=== PATIENT | male | born 1950 | race Caucasian/White ===

== ENCOUNTER 2017-12-08 15:12 | Emergency (ER) | payer MEDICARE, OTHER ==
[~2017-12-08] VITALS: Ht 175.3 cm; Wt 81.8 kg
[~2017-12-08 15:12] MED LIST: thiamine inj. 100 MG, MVI, adult No.4 with vit. K 10 ML in dextrose 5% water 500ml 489 ML IV SCH
[2017-12-08] MEDS ORDERED: normal saline 1000ML IV soln IVB ONE (16:30)
[2017-12-08 16:41] LABS: BASOPHILS % (AUTO) 0.4 % (0-1); EOSINOPHILS # (AUTO) 0.2 X10'3 (0-0.9); EOSINOPHILS % (AUTO) 2.8 % (0-6); HEMOGLOBIN 14.6 g/dl (14.0-17.9); LYMPHOCYTES % (AUTO) 25.6 % (21-51); MEAN CORPUSCULAR HEMOGLOBIN 30.1 PG (27.0-31.0); MEAN CORPUSCULAR HGB CONC 33.9 % (33.0-36.5); MEAN CORPUSCULAR VOLUME 88.9 FL (78-98); MEAN PLATELET VOLUME 10.5 FL (7.4-10.4); MONOCYTES # (AUTO) 0.6 X10'3 (0-0.9); MONOCYTES % (AUTO) 7.9 % (2-12); NEUTROPHILS # (AUTO) 4.9 X10'3 (1.8-7.7); NEUTROPHILS % (AUTO) 63.3 % (42-75); PLATELET COUNT 118 X10'3 (140-440); RED BLOOD COUNT 4.84 X10'6 (4.70-6.10); RED CELL DISTRIBUTION WIDTH 14.9 % (11.5-14.5); WHITE BLOOD COUNT 7.8 X10'3 (4.5-11.0)
[2017-12-08 16:56] LABS: ALANINE AMINOTRANSFERASE 92 U/L (12-78); ALBUMIN 4.1 G/DL (3.4-5.0); ALKALINE PHOSPHATASE 76 IU/L (46-116); ANION GAP 5 (8-16); ASPARTATE AMINO TRANSFERASE 53 U/L (10-37); BILIRUBIN,TOTAL 0.4 MG/DL (0.1-1.0); BLOOD UREA NITROGEN 22 MG/DL (7-18); BUN/CREATININE RATIO 19.8 (5.4-32.0); CALCIUM 9.1 MG/DL (8.5-10.1); CHLORIDE 106 MMOL/L (99-107); CREATININE 1.11 MG/DL (0.60-1.10); GLUCOSE 115 MG/DL (70-104); POTASSIUM 4.2 MMOL/L (3.5-5.1); SODIUM 140 MMOL/L (135-145); TOTAL CARBON DIOXIDE 29.1 MMOL/L (24-32); TOTAL PROTEIN 8.2 G/DL (6.4-8.2); eGFR 66 ML/MIN
[2017-12-08 17:05] LABS: ETHANOL < 0.010 GM/DL (0.0-0.010)
[2017-12-08] MEDS ORDERED: LORazepam 2 mg/ml vial IV ONE (17:05)
[2017-12-08 18:44] LABS: CLARITY,URINE SLIGHTLY CLOUDY (Clear); COLOR,URINE YELLOW (Yellow); GLUCOSE, URINE NEGATIVE (Neg); KETONES,URINE NEGATIVE (Neg); LEUKOCYTE ESTERASE ,URINE NEGATIVE (Neg); NITRITES, URINE NEGATIVE (Neg); OCCULT BLOOD,URINE SMALL (Neg); PH,URINE 7.5 (4.8-8.0); PROTEIN,URINE TRACE mg/dl (Neg); UROBILINOGEN,URINE 0.2 E.U/dL (0.2-1.0)
[2017-12-08 18:45] LABS: UA COLLECTION TYPE VOIDED
[2017-12-08 18:48] LABS: URINE AMPHETAMINE SCREEN NEGATIVE (Neg); URINE BARBITUATE SCREEN NEGATIVE (Neg); URINE BENZODIAZEPINES SCREEN NEGATIVE (Neg); URINE CANNABINOID SCREEN NEGATIVE (Neg); URINE COCAINE SCREEN NEGATIVE (Neg); URINE METHADONE SCREEN NEGATIVE (Neg); URINE OPIATE SCREEN NEGATIVE (Neg); URINE PHENCYCLIDINE SCREEN NEGATIVE (Neg)
[2017-12-08 18:58] LABS: BACTERIA,URINE NONE SEEN /HPF (Neg); MUCUS STRANDS NONE SEEN /LPF (Neg); SQUAMOUS EPITHELIAL CELL,UR NONE SEEN /LPF (FEW); WBC,URINE NONE SEEN /HPF (0-4)
[2017-12-08] MEDS ORDERED: thiamine inj. 100 MG, MVI, adult No.4 with vit. K 10 ML in dextrose 5% water 500ml 489 ML IV SCH ×3 (19:00)
[2017-12-08 19:58] VITALS: BP 168/88
[2017-12-09] MEDS ORDERED: multivitamins, therapeutics tablet PO SCH (08:00)
== END 2017-12-08 19:47 ==
LOC: ER 15:12
DX: R41.82 Altered mental status, unspecified (principal); I10 Essential (primary) hypertension; M19.90 Unspecified osteoarthritis, unspecified site; Z98.890 Other specified postprocedural states
CPT/HCPCS: 36415; 70450; 80053; 80305; 80320; 81001; 82140; 83735; 84443; 85025; 96365; 96366; 96375; 99285; J2060; J3411; J7030; J7060

== ENCOUNTER 2018-10-20 15:27 | Emergency (ER) | payer OTHER ==
[~2018-10-20] VITALS: Ht 175.3 cm; Wt 95.0 kg
[2018-10-20] MEDS ORDERED: LORazepam 1 MG tablet PO ONE (16:15)
--- NOTE | 2018-10-20 17:19 | NUR ---
PT WAS BROUGHT IN BY [facility] ON A 5150 WRITTEN BY OSMAR KING, HE WAS CHANGED INTO [facility] AND GAVE US A URINE SAMPLE FOLLOWED BY LABS. VERY PLEASANT.
[2018-10-20 17:21] LABS: BASOPHILS % (AUTO) 0.4 % (0-1); EOSINOPHILS # (AUTO) 0.1 X10'3 (0-0.9); EOSINOPHILS % (AUTO) 1.8 % (0-6); HEMATOCRIT 38.7 % (42.0-52.0); HEMOGLOBIN 13.4 g/dl (14.0-17.9); LYMPHOCYTES # (AUTO) 1.2 X10'3 (1.1-4.8); LYMPHOCYTES % (AUTO) 21.1 % (21-51); MEAN CORPUSCULAR HEMOGLOBIN 31.7 PG (27.0-31.0); MEAN CORPUSCULAR HGB CONC 34.5 g/dL (33.0-36.5); MEAN CORPUSCULAR VOLUME 91.9 FL (78-98); MEAN PLATELET VOLUME 9.5 FL (7.4-10.4); MONOCYTES # (AUTO) 0.5 X10'3 (0-0.9); MONOCYTES % (AUTO) 7.9 % (2-12); NEUTROPHILS % (AUTO) 68.8 % (42-75); PLATELET COUNT 80 X10'3 (140-440); RED BLOOD COUNT 4.21 X10'6 (4.70-6.10); RED CELL DISTRIBUTION WIDTH 13.3 % (11.5-14.5); WHITE BLOOD COUNT 5.8 X10'3 (4.5-11.0)
[2018-10-20 17:34] LABS: ALANINE AMINOTRANSFERASE 61 U/L (12-78); ALBUMIN 3.7 G/DL (3.4-5.0); ALBUMIN/GLOBULIN RATIO 1.1 (1.1-1.5); ALKALINE PHOSPHATASE 57 IU/L (46-116); ANION GAP 6 (8-16); ASPARTATE AMINO TRANSFERASE 31 U/L (10-37); BILIRUBIN,TOTAL 0.3 MG/DL (0.1-1.0); BLOOD UREA NITROGEN 21 MG/DL (7-18); BUN/CREATININE RATIO 22.3 (5.4-32.0); CALCIUM 8.8 MG/DL (8.5-10.1); CHLORIDE 107 MMOL/L (99-107); CREATININE 0.94 MG/DL (0.60-1.10); GLUCOSE 139 MG/DL (70-104); POTASSIUM 3.9 MMOL/L (3.5-5.1); SODIUM 140 MMOL/L (135-145); TOTAL CARBON DIOXIDE 26.6 MMOL/L (24-32); TOTAL PROTEIN 7.2 G/DL (6.4-8.2); eGFR 80 ML/MIN
[2018-10-20 17:35] LABS: URINE AMPHETAMINE SCREEN NEGATIVE (Neg); URINE BARBITUATE SCREEN NEGATIVE (Neg); URINE BENZODIAZEPINES SCREEN NEGATIVE (Neg); URINE CANNABINOID SCREEN NEGATIVE (Neg); URINE COCAINE SCREEN NEGATIVE (Neg); URINE METHADONE SCREEN NEGATIVE (Neg); URINE OPIATE SCREEN NEGATIVE (Neg); URINE PHENCYCLIDINE SCREEN NEGATIVE (Neg)
[2018-10-20 17:39] LABS: ETHANOL < 0.010 GM/DL (0.0-0.010)
[2018-10-20 17:45] LABS: LARGE PLATELETS FEW; PLATELET ESTIMATE DECREASED
--- NOTE | 2018-10-20 19:00 | NUR ---
Pt is awake in bed eating his dinner. Cooperative with admission assesment. His speech is disorganized, and he has grandiose delusions. 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 He states that he doesn't take any medications and [place]
--- NOTE | 2018-10-20 21:00 | NUR ---
Pt is resting quietly in bed. He ate his entire dinner tray and used the bathroom twice.
[2018-10-20] MEDS ORDERED: LACT10SO PO (21:48)
[2018-10-20] MEDS ORDERED: LISI30TA4 PO (21:48)
[2018-10-20] MEDS ORDERED: RISP3TAB11 PO (21:48)
[2018-10-20] MEDS ORDERED: AMLO5TAB21 PO (21:48)
[2018-10-20] MEDS ORDERED: OLAN5TAB3 PO (21:48)
--- NOTE | 2018-10-20 23:00 | NUR ---
Pt got up and used the bathroom, then fell back asleep.
[2018-10-21] MEDS ORDERED: LISI30TA4 PO ×2 (00:07→00:15)
[2018-10-21] MEDS ORDERED: OLAN5TAB3 PO (00:15)
[2018-10-21] MEDS ORDERED: RISP3TAB11 PO (00:15)
[2018-10-21] MEDS ORDERED: AMLO5TAB4 PO (00:15)
[2018-10-21] MEDS ORDERED: LACT10SO PO (00:15)
[2018-10-21] MEDS ORDERED: OLANZAPINE 5 MG TABLET PO PRN (00:40)
--- NOTE | 2018-10-21 01:00 | NUR ---
Pt asleep on R side, respirations WNL.
--- NOTE | 2018-10-21 03:00 | NUR ---
Pt used the restroom, and returned to his bed. Pt fell asleep again on his R side.
--- NOTE | 2018-10-21 05:00 | NUR ---
Pt asleep on back, respirations WNL.
[2018-10-21] MEDS: lactulose 20gm/30ml cup PO SCH ×2 (08:26→21:11)
[2018-10-21] MEDS: lisinopril 10 MG tablet PO SCH (08:26)
--- NOTE | 2018-10-21 19:00 | NUR ---
PATIENT WITH FLAT AFFECT, PLEASANT, ORIENTED TO SELF, LOCATION. PATIENT SMILING WHEN asked about how he is feeling, denies SI/HI at this time. patient receptive to cleaning up before bed
--- NOTE | 2018-10-21 21:00 | NUR ---
patient lying in bed eyes open, no distress noted on right side
[2018-10-21] MEDS: amLODIPine 2.5mg tablet PO SCH (21:10)
[2018-10-21] MEDS: risperiDONE 0.5mg tablet PO SCH (21:11)
--- NOTE | 2018-10-21 21:30 | NUR ---
Pt up to the bathroom to perform evening toilet. Fresh linen placed on bed, pt given fresh scrubs.
--- NOTE | 2018-10-21 23:00 | NUR ---
PATIENT APPEARS TO BE SLEEPING, RR EVEN AND UNLABORED, ON BACK
--- NOTE | 2018-10-22 01:02 | NUR ---
PATIENT LYING ON STOMACH, RR EVEN AND UNLABORED, PATEINT APPEARS TO BE SLEEPING
--- NOTE | 2018-10-22 03:10 | NUR ---
PATIENT APPEARS TO BE SLEEPING, RR EVEN, UNLABORED ON RIGHT SIDE
--- NOTE | 2018-10-22 05:00 | NUR ---
PATIENT APPEARS TO BE SLEEPING ON RIGH SIDE, RR EVEN AN D UNLABORED
--- NOTE | 2018-10-22 06:30 | NUR ---
Assumed care of pt. Pt asleep on left side in no apparent distres. Respirations are even and unlabored.
[2018-10-22] MEDS: lactulose 20gm/30ml cup PO SCH ×2 (08:03→20:01)
[2018-10-22] MEDS: lisinopril 10 MG tablet PO SCH (08:03)
--- NOTE | 2018-10-22 08:08 | NUR ---
Client up to the bathroom
--- NOTE | 2018-10-22 10:03 | NUR ---
Pt continues to sleep on left side in no apparent distress. Respirations are even and unlabored.
--- NOTE | 2018-10-22 10:52 | NUR ---
Asked Dr Luna in ER for orders to check ammonia levels. Orders given
--- NOTE | 2018-10-22 11:12 | NUR ---
Client up to the bathroom
--- NOTE | 2018-10-22 12:33 | NUR ---
Client awake and sitting up in bed
--- NOTE | 2018-10-22 13:07 | NUR ---
Client ate 100% of lunch
--- NOTE | 2018-10-22 19:02 | NUR ---
One to one with the patient to assess for severity of thought disorder and orientation. The patient stated that the year was 1980 and the season was fall. 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 He denies that he has a mental illness and stated, "They released me from that" He then began making delusional statements. "I have a contract with the [employer] and I work on [employer]..." When asked what his discharge plan was he stated "Aldo is supposed to come pick me up...Aldo is another me... [facility] [employer] has all hte paperwork" He denies that he is hallucinating. He denies thoughts to harm himself or others."
[2018-10-22] MEDS: LORazepam 1 MG tablet PO PRN (20:00)
[2018-10-22] MEDS: amLODIPine 2.5mg tablet PO SCH (20:00)
[2018-10-22] MEDS: risperiDONE 0.5mg tablet PO SCH (20:01)
--- NOTE | 2018-10-22 20:07 | NUR ---
The patient took his evening medications and had an HS snack. He has been pleasant and cooperative
--- NOTE | 2018-10-22 21:42 | NUR ---
[facility] in [facility] - 10/22/18 at 2144 by MELISA The patientis still awake but continues to refuse ordred Risperdal
--- NOTE | 2018-10-22 21:44 | NUR ---
The patient appears to be asleep at this time.
--- NOTE | 2018-10-22 23:24 | NUR ---
The patient appears to be sleeping
--- NOTE | 2018-10-23 00:13 | NUR ---
The patient appears to be sleeping
--- NOTE | 2018-10-23 02:45 | NUR ---
The patient appears to be sleeping
--- NOTE | 2018-10-23 04:44 | NUR ---
The patient appears to be sleeping
[2018-10-23] MEDS: lactulose 20gm/30ml cup PO SCH ×2 (08:45→20:31)
[2018-10-23] MEDS: lisinopril 10 MG tablet PO SCH (08:47)
--- NOTE | 2018-10-23 08:59 | NUR ---
Patient has taken all morning medications. When asked why he is taking lactolose patient states "I forgot." Patient is eating breakfast, no issues currently.
--- NOTE | 2018-10-23 09:22 | NUR ---
Patient up to the restroom, tolerated well.
--- NOTE | 2018-10-23 09:56 | NUR ---
Assessment will not save to patients chart, reviewed previous nurses findings and agree with assessment.
[2018-10-23] MEDS: LORazepam 1 MG tablet PO PRN (14:43)
--- NOTE | 2018-10-23 18:30 | NUR ---
RECIEVED PT FROM BELTRAN MANN NO COMPLAINTS.
--- NOTE | 2018-10-23 19:00 | NUR ---
AMBULATED TO THE BATHROOM TO VOID NO COMPALINTS THEN PACED A FEW MINUTES AFTERWARDS.
--- NOTE | 2018-10-23 19:58 | NUR ---
PT PACING IN THE HOLDING AREA WAS GIVEN DECAF COFFEE WITH 3 SUGARS HE REQUESTED. NO OTHER COMPLAINTS
[2018-10-23] MEDS: amLODIPine 2.5mg tablet PO SCH (20:36)
[2018-10-23] MEDS: risperiDONE 0.5mg tablet PO SCH (20:36)
--- NOTE | 2018-10-23 20:47 | NUR ---
PT JUST GIVEN NIGHTTIME MEDS. CURRENTLY SITTING UP IN THE BED AND SNACKING AND DRINKING WATER. DENIES ANY NEEDS AT THIS TIME.
--- NOTE | 2018-10-23 21:00 | NUR ---
pt laying in bed resting took hs meds and lactulose at 2030. answered date of appropriately. orientated to self and environment. denies hearing voices at this time.
--- NOTE | 2018-10-23 21:20 | NUR ---
PT MOVED OVER TO THE MAIN eR ROOM 15 WITH CABINETS LOCKED AND EXPLAINED TO PT WHY HE IS IN THIS AREA AND HE IS OK WITH THIS. AWARE HE IS AWAITING PLACEMENT FOR HIS SAFETY. AWARE HE NEEDS TO HAVE STAFF ACOMPANY HIM WHEN HE LEAVES THE ROOM.
--- NOTE | 2018-10-23 21:40 | NUR ---
PT GIVEN SALTINE CRACKERS TO EAT, FRESH WATER AND A TURKEY SANDWICH. PLASTIC REMOVED AND THROWN AWAY OUTSIDE OF THE ROOM. ENVIRONMENT CHECKED AND SET UP FOR HIS SAFETY.
--- NOTE | 2018-10-23 22:27 | NUR ---
pt laying on gurney on right side relaxing after eating saltine crackers and eating a turkey sandwich. juan the need to void at this time.
--- NOTE | 2018-10-23 23:46 | NUR ---
pt resting on his left side no s&s of distress at this time.
--- NOTE | 2018-10-24 00:35 | NUR ---
resting on left side no changes.
--- NOTE | 2018-10-24 01:21 | NUR ---
resting on his left side. appears to be sleeping.
--- NOTE | 2018-10-24 01:52 | NUR ---
pt rolled over onto his right side. no changes.
--- NOTE | 2018-10-24 02:41 | NUR ---
pt resting rolled over onto left side. no s&S of distress.
--- NOTE | 2018-10-24 03:31 | NUR ---
pt rolled over onto right side. looked up at Rn then closed his eyes.
--- NOTE | 2018-10-24 04:24 | NUR ---
pt remains on right side without changes.
--- NOTE | 2018-10-24 05:22 | NUR ---
pt remains resting on right side without distress covered with a blanket. appears to be resting comfortably.
--- NOTE | 2018-10-24 06:29 | NUR ---
pt resting without changes on right side. reviewed pt status with Zac lala and Rae Frank rn and aware of pt needs and behavior and what has been explained to him.
--- NOTE | 2018-10-24 07:30 | NUR ---
Assisted to bathroom. No complaints.
[2018-10-24] MEDS: lactulose 20gm/30ml cup PO SCH (08:02)
[2018-10-24] MEDS: lisinopril 10 MG tablet PO SCH (08:08)
--- NOTE | 2018-10-24 09:30 | NUR ---
Pt ate most of his breakfast and took all AM meds.
--- NOTE | 2018-10-24 11:26 | NUR ---
Pt pacing in the room. Coffee given.
--- NOTE | 2018-10-24 13:49 | NUR ---
No new complaints. Pt has been calm and cooperative.
--- NOTE | 2018-10-24 16:16 | NUR ---
Received call from John in [facility], they will be accepting pt.
[2018-10-24 18:10] VITALS: BP 127/76
== END 2018-10-24 18:11 | disposition home or self-care (01) ==
LOC: ER 15:28
DX: F79 Unspecified intellectual disabilities (principal); R41.82 Altered mental status, unspecified; F20.9 Schizophrenia, unspecified; I10 Essential (primary) hypertension; M19.90 Unspecified osteoarthritis, unspecified site; Z98.890 Other specified postprocedural states
CPT/HCPCS: 36415; 80053; 80305; 80320; 82140; 85025; 99285

== ENCOUNTER 2018-10-24 17:29 | Inpatient (IN) | payer MEDICARE, MEDICAID ==
[~2018-10-24] VITALS: Ht 175.3 cm; Wt 81.3 kg
[~2018-10-24 17:29] MED LIST changes: +AMLO5TAB4 PO; +LACT10SO PO; +LISI30TA4 PO; +OLAN5TAB3 PO; +RISP3TAB11 PO; -thiamine inj. 100 MG, MVI, adult No.4 with vit. K 10 ML in dextrose 5% water 500ml 489 ML IV SCH
[2018-10-24] MEDS ORDERED: loperamide 2mg capsule PO PRN (18:00)
[2018-10-24] MEDS ORDERED: acetaminophen 325mg tablet PO PRN (18:00)
[2018-10-24] MEDS ORDERED: tuberculin, purif. prot. deriv. 5 units/0.1ml ID ONE (18:00)
[2018-10-24] MEDS ORDERED: magnesium hydroxide 30ml (MOM) UD suspension PO PRN (18:00)
[2018-10-24] MEDS ORDERED: mag hydrox/Alum hydrox/simeth 30ml oral suspension PO PRN (18:00)
[2018-10-24] MEDS ORDERED: OLANZAPINE 5 MG TABLET PO PRN (22:40)
--- NOTE | 2018-10-24 23:07 | NUR ---
Admit note Pt arrived at 195 on floor via wheel chair from ED . Pt is ambulatory without assistive devices. Pt was up and social in Group room watching tv eating snack. Pt calm and cooperative with admit process but is a poor historian.Pt retired to room and went to sleep without PRN.
--- NOTE | 2018-10-24 23:24 | NUR ---
Nursing Progress Note: Legal hold:5150 Client on involuntary status for GD. Report received from nurse with use of SBAR[]. Why are they here: 68 year old male with hx of schizophrenia presents to the ED on a 5150 mental health hold. 5150 was written by a clinician due to the patient being unable to care for himself. Due to the 5150 report that patient was released from residential yesterday and attempted to go to his sisters house. It was proved that the patient is unable to proved food, senior living, or clothing for himself and is having grandiose delusions that he is a "short goods drier going through time travel." Patient has no intentions for suicide or homicide. Per Natasha Robert's note, INDUSTRIAL HIRE SALES ASSISTANT, the patient is conserved by the state and she is working and finding placement for him. Assessment What has happened this shift: Pt was pleasent and cooperative with admit process. S/I, H/I:denies A/VH:denies Sleep: asleep at this time ADL's:IND Group attendance:NA Were meds taken: none ordered for this shift Any med S/E[] Mental Status Exam Appearance:Disheveled Eye contact: good Behavior:good Speech:clear Mood:appropriate Affect:Flat Thought process: Delayed Thought Content: Scattered Cognition: confused Insight:poor Judgment:poor Interventions PRN's used:none Therapeutic interventions:1:1 therapeutic listening Restraints/seclusion/emergency medication:none Justification of Continued Inpatient Treatment:Pt is gravely disabled unable to verblize a plan for food,clothing and senior living.
[2018-10-25 07:29] VITALS: BP 128/70
[2018-10-25] MEDS: lisinopril 10 MG tablet PO SCH (07:47)
[2018-10-25] MEDS: lactulose 20gm/30ml cup PO SCH ×2 (07:47→21:04)
[2018-10-25 08:02] LABS: CHOL/HDL RATIO 4.6 (0.00-4.99); CHOLESTEROL 128 MG/DL (0-200); HDL CHOLESTEROL 28 MG/DL (35-60); LDL CHOLESTEROL 89 MG/DL (50-100); TRIGLYCERIDES 186 MG/DL (20-135)
[2018-10-25 08:13] LABS: HEMOGLOBIN A1C 5.4 % (4.5-6.2)
--- NOTE | 2018-10-25 17:00 | NUR ---
Nursing Progress Note: Legal hold:5150 Client on involuntary status for GD. Report received from MACKENZIE Montano with use of SBAR Why are they here: 68 year old male with hx of schizophrenia presents to the ED on a 5150 mental health hold. 5150 was written by a clinician due to the patient being unable to care for himself. Due to the 5150 report that patient was released from [facility] yesterday and attempted to go to his sisters house. It was proved that the patient is unable to proved food, half-way, or clothing for himself and is having grandiose delusions that he is a "top precipitator operator helper going through time travel." Patient has no intentions for suicide or homicide. Per Natasha Robert's note, SHEET METAL WORKER MAINTENANCE, the patient is conserved by the state and she is working and finding placement for him. Assessment What has happened this shift: Pt. awake at beginning of shift. Pt. is calm and cooperative. Pt. denies SI/HI, A/V H. Pt. ate breakfast and took medications. 1:1 done at bedside. Pt. reports that the police brought him here after they found him homeless. Pt. is confused at how he got here. S/I, H/I:denies A/VH:denies Sleep: Pt. slept 6.25 horus ADL's:Independent. Pt. encouraged to shower Group attendance: Yes Were meds taken: Yes Any med S/E None reported/none observed Mental Status Exam Appearance:Disheveled. Eye contact: good Behavior: Calm, cooperative, pacing. Speech:clear Mood: euthmyc Affect:Flat Thought process: Delayed Thought Content: Scattered Cognition: Oriented x3. pt. confused at how he was admitted. Insight:poor Judgment:poor Interventions PRN's used: none Therapeutic interventions: 1:1 therapeutic listening Restraints/seclusion/emergency medication: none Justification of Continued Inpatient Treatment:Pt is gravely disabled unable to verblize a plan for food,clothing and half-way. Interrupting current crisis.
[2018-10-25 20:00] VITALS: BP 144/78
[2018-10-25] MEDS ORDERED: risperiDONE 0.5mg tablet PO SCH (21:00)
[2018-10-25] MEDS: amLODIPine 2.5mg tablet PO SCH (21:04)
[2018-10-25] MEDS: risperiDONE 2mg tablet PO SCH (21:05)
--- NOTE | 2018-10-26 01:39 | NUR ---
Nursing Progress Note: Legal hold:5150 Client on involuntary status for GD. Report received from MACKENZIE Torres with use of SBAR Why are they here: 68 year old male with hx of schizophrenia presents to the ED on a 5150 mental health hold. 5150 was written by a clinician due to the patient being unable to care for himself. Due to the 5150 report that patient was released from [facility] yesterday and attempted to go to his sisters house. It was proved that the patient is unable to proved food, halfway, or clothing for himself and is having grandiose delusions that he is a "pharmacy technician inpatient going through time travel." Patient has no intentions for suicide or homicide. Per Natasha Robert's note, PROJECT DEVELOPMENT LEADER, the patient is conserved by the state and she is working and finding placement for him. Assessment What has happened this shift: Pt pleasant and cooperative. Came to group room for snack. Does not initiate conversation will answer questions when asked. No delusional thoughts expressed. Denies hallucinations, Pt said he attended groups and they were "Ok" could not recount anything said in the groups. S/I, H/I:denies A/VH:denies Sleep: sleeping at this time. ADL's:Independent. Pt. encouraged to shower Group attendance: Came to group room for snack Were meds taken: Yes Any med S/E None reported/none observed Mental Status Exam Appearance:Disheveled. Eye contact: good Behavior: Calm, cooperative, pacing. Speech:clear Mood: euthmyc Affect:Flat Thought process: Delayed Thought Content: Scattered Cognition: Oriented x3. pt. confused at how he was admitted. Insight:poor Judgment:poor Interventions PRN's used: none Therapeutic interventions: 1:1 therapeutic listening Restraints/seclusion/emergency medication: none Justification of Continued Inpatient Treatment:Pt is gravely disabled unable to verbalize a plan for food,clothing and halfway. Interrupting current crisis.
[2018-10-26] MEDS: lisinopril 10 MG tablet PO SCH (07:37)
[2018-10-26] MEDS: lactulose 20gm/30ml cup PO SCH ×2 (07:38→21:28)
[2018-10-26 08:00] VITALS: BP 132/73
--- NOTE | 2018-10-26 17:44 | NUR ---
Nursing Progress Note: Legal hold:LPS conserved Client on involuntary status for GD. Report received from MACKENZIE Montano with use of SBAR Why are they here: 68 year old male with hx of schizophrenia presents to the ED on a 5150 mental health hold. 5150 was written by a clinician due to the patient being unable to care for himself. Due to the 5150 report that patient was released from nursing home yesterday and attempted to go to his sisters house. It was proved that the patient is unable to proved food, long term, or clothing for himself and is having grandiose delusions that he is a "barratte operator going through time travel." Patient has no intentions for suicide or homicide. Per Natasha Robert's note, DEPUTY ATTORNEY GENERAL, the patient is conserved by the state and she is working and finding placement for him. Assessment What has happened this shift: pt. reports he left his house for 5 minutes and the police picked him up. pt. reports he built the house that he was living in but his sister lives there now. Pt. reports that he was living in his appartment primarily. Pt. is awake at change of shift and pacing the floor with headphones on. Pt. is cooperative and calm. Pt. took medications and ate meals in community room. Pt. lacks insight into events that brought him to the hospital. Does not initiate conversation will answer questions when asked. No delusional thoughts expressed. Pt. attends groups. S/I, H/I:denies A/VH:denies Sleep: Pt. slept 8.25 ADL's:Independent. Pt. reports he showered today. Group attendance: Came to group room for snack Were meds taken: Yes Any med S/E None reported/none observed Mental Status Exam Appearance:Disheveled. Eye contact: good Behavior: Calm, cooperative, pacing. Speech:clear Mood: euthmyc Affect:Flat Thought process: Delayed Thought Content: poverty of thought Cognition: Oriented x3. pt. confused at how he was admitted. Insight:poor Judgment:poor Interventions PRN's used: none Therapeutic interventions: 1:1 therapeutic listening Restraints/seclusion/emergency medication: none Justification of Continued Inpatient Treatment:Pt is gravely disabled unable to verbalize a plan for food,clothing and long term. Interrupting current crisis.
[2018-10-26] MEDS: amLODIPine 2.5mg tablet PO SCH (21:27)
[2018-10-26] MEDS: risperiDONE 2mg tablet PO SCH (21:27)
--- NOTE | 2018-10-26 22:23 | NUR ---
Nursing Progress Note: Legal hold:5150 Client on involuntary status for GD. Report received from MACKENZIE Torres with use of SBAR Why are they here: 68 year old male with hx of schizophrenia presents to the ED on a 5150 mental health hold. 5150 was written by a clinician due to the patient being unable to care for himself. Due to the 5150 report that patient was released from [facility] yesterday and attempted to go to his sisters house. It was proved that the patient is unable to proved food, care home, or clothing for himself and is having grandiose delusions that he is a "administrative law judge going through time travel." Patient has no intentions for suicide or homicide. Per Natasha Robert's note, RN SHIFT MGR, the patient is conserved by the state and she is working and finding placement for him. Assessment What has happened this shift: Pt pleasant and cooperative. Pacing the [place]. Came to group room for snack. Does not initiate conversation will answer questions when asked. 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 I will go back to [place] I have ahouse there and here or maybe live with my sister or aunt. Denies hallucinations, Pt said he attended groups and they were "Ok" could not recount anything said in the groups. S/I, H/I:denies A/VH:denies Sleep: sleeping at this time. ADL's:Independent. Pt. encouraged to shower Group attendance: Came to group room for snack Were meds taken: Yes Any med S/E None reported/none observed Mental Status Exam Appearance:Disheveled. Eye contact: good Behavior: Calm, cooperative, pacing. Speech:clear Mood: euthmyc Affect:Flat Thought process: Delayed Thought Content: Scattered Cognition: Oriented x3. pt. confused at how he was admitted. Insight:poor Judgment:poor Interventions PRN's used: none Therapeutic interventions: 1:1 therapeutic listening Restraints/seclusion/emergency medication: none Justification of Continued Inpatient Treatment:Pt is gravely disabled unable to verbalize a plan for food,clothing and care home. Interrupting current crisis.
[2018-10-27 07:44] VITALS: BP 126/76
[2018-10-27] MEDS: lactulose 20gm/30ml cup PO SCH ×2 (07:48→20:21)
[2018-10-27] MEDS: lisinopril 10 MG tablet PO SCH (07:48)
--- NOTE | 2018-10-27 16:27 | NUR ---
Nursing Progress Note: Aldo Lee Legal hold: LPS conserved Client on involuntary status for GD, psychosis Report received from MACKENZIE Montano with use of SBAR Why are they here: 68 year old male with hx of schizophrenia presents to the ED on a 5150 mental health hold. 5150 was written by a clinician due to the patient being unable to care for himself. Due to the 5150 report that patient was released from skilled nursing yesterday and attempted to go to his sisters house. It was proved that the patient is unable to provide food, snf, or clothing for himself and is having grandiose delusions that he is a "police sergeant precinct going through time travel." Patient has no intentions for suicide or homicide. Per Natasha Robert's note, LENS POLISHER, the patient is conserved by the state and she is working and finding placement for him. Assessment What has happened this shift: Pt. Sleeping at change of shift. This jingle writer approached client in hallway, he presents cooperative with no obvious anxiety or agitation. States he slept well. When asked why he is here, his response is "I am homeless." Denies SI, HI, AV hallucinations. On initial contact does not demonstrate any grandiose delusions. Throughout the day observed walking in hallway with headphones, interacting appropriately. S/I, H/I:denies A/VH:denies Sleep: Reported 7 hours ADL's: Independent. Group attendance: yes Were meds taken: Yes Any med S/E None reported/none observed Mental Status Exam Appearance:Disheveled. Eye contact: good Behavior: Calm, cooperative, pacing. Speech:clear Mood: euthmyc Affect:Flat Thought process: Delayed Thought Content: Scattered Cognition: Oriented x3. pt. confused at how he was admitted. Insight:poor Judgment:poor Interventions PRN's used: none Therapeutic interventions: 1:1 therapeutic listening Restraints/seclusion/emergency medication: none Justification of Continued Inpatient Treatment:Pt is gravely disabled unable to verbalize a plan for food,clothing and snf. Interrupting current crisis.
[2018-10-27 20:00] VITALS: BP 147/79
[2018-10-27] MEDS: amLODIPine 2.5mg tablet PO SCH (20:21)
[2018-10-27] MEDS: risperiDONE 2mg tablet PO SCH (20:21)
--- NOTE | 2018-10-27 21:48 | NUR ---
Nursing Progress Note: Legal hold: LPS conserved Client on involuntary status for GD, psychosis Report received from MACKENZIE Gonzalez with use of SBAR Why are they here: 68 year old male with hx of schizophrenia presents to the ED on a 5150 mental health hold. 5150 was written by a clinician due to the patient being unable to care for himself. Due to the 5150 report that [facility] was [facility] from [facility] yesterday and attempted to go to his sisters house. It was proved that the patient is unable to provide food, detention, or clothing for himself and is having grandiose delusions that he is a "molding utility worker going through time travel." Patient has no intentions for suicide or homicide. Per Natasha Robert's note, JEWEL CORNER BRUSHING MACHINE OPERATOR, the patient is conserved by the state and she is working and finding placement for him. Assessment What has happened this shift: Patient is pacing the halls at the change of shift with headphones on. He agrees to an assessment at his bedside, he does not make any grandiose or delusional statements. He denies SI, HI, AH, VH and keeps his conversation to a minimal. When asked about his day he states "Just pacing." He say's it helps to listen to the "rock music" on the headphones, he is seen on the unit but is isolative in the fact that he keeps away from others and does not interact with people. It is noted that he keeps the head phones on during his assessment. He is compliant with all his evening medications. S/I, H/I: Denies A/VH: Denies Sleep: See sleep assessment ADL's: Independent. Group attendance: No groups this shift Were meds taken: Yes Any med S/E None reported/none observed Mental Status Exam Appearance: Disheveled, wears a beanie and headphones. Eye contact: Good Behavior: Calm, cooperative, pacing. Speech: Normal volume, rate and rhythm Mood: Euthymic Affect: Flat Thought process: Delayed Thought Content: Difficult to assess patient keeps headphones on and keeps conversation to a minimum Cognition: Oriented x3. pt. confused at how he was admitted. Insight: Poor Judgment: Poor Interventions PRN's used: None Therapeutic interventions: 1:1 assessment at the bedside. Provided therapeutic communication and active listening, medication administration/monitoring/education, reality orientation, symptom identification and management, Q 15 min checks. Restraints/seclusion/emergency medication: None Justification of Continued Inpatient Treatment:Pt is gravely disabled unable to verbalize a plan for food,clothing and detention. Interrupting current crisis.
[2018-10-28] MEDS: lisinopril 10 MG tablet PO SCH (07:58)
[2018-10-28] MEDS: lactulose 20gm/30ml cup PO SCH ×2 (07:59→20:32)
[2018-10-28 08:02] VITALS: BP 155/77
--- NOTE | 2018-10-28 17:45 | NUR ---
Nursing Progress Note: Legal hold: LPS conserved Client on involuntary status for GD, psychosis Report received from MACKENZIE Garsia with use of SBAR Why are they here: 68 year old male with hx of schizophrenia presents to the ED on a 5150 mental health hold. 5150 was written by a clinician due to the patient being unable to care for himself. Due to the 5150 report that patient was released from long term yesterday and attempted to go to his sisters house. It was proved that the patient is unable to provide food, correction, or clothing for himself and is having grandiose delusions that he is a "three knife trimmer going through time travel." Patient has no intentions for suicide or homicide. Per Natasha Robert's note, FUNERAL HOME GENERAL MANAGER, the patient is conserved by the state and she is working and finding placement for him. Assessment What has happened this shift: Pt. sleeping at beginning of shift. Pt. took medications and ate breakfast in community room. 1:1 done at bedside. Pt. believes he is going back to work at [employer] in [place] when he is discharged. t. seen pacing in hallways with headphones. Pt. will speak when spoken to, but mostly keeps to himself. S/I, H/I: Denies A/VH: Denies Sleep: 7 Hours ADL's: Independent. Group attendance: Y Were meds taken: Y Any med S/E None reported/none observed Mental Status Exam Appearance: Disheveled, wears a beanie and headphones. Eye contact: Good Behavior: Calm, cooperative, pacing. Speech: Normal volume, rate and rhythm Mood: Euthymic Affect: Flat Thought process: Delayed Thought Content: Poverty of thought Cognition: Oriented x3. pt. confused to circumstance Insight: Poor Judgment: Poor Interventions PRN's used: None Therapeutic interventions: 1:1 assessment at the bedside. Provided therapeutic communication and active listening, medication administration/monitoring/education, reality orientation, symptom identification and management, Q 15 min checks. Restraints/seclusion/emergency medication: None Justification of Continued Inpatient Treatment:Pt is gravely disabled unable to verbalize a plan for food,clothing and correction. Interrupting current crisis.
[2018-10-28 19:44] VITALS: BP 151/67
[2018-10-28] MEDS: amLODIPine 2.5mg tablet PO SCH (20:32)
[2018-10-28] MEDS: LORazepam 1 MG tablet PO PRN (20:33)
[2018-10-28] MEDS: risperiDONE 2mg tablet PO SCH (20:33)
--- NOTE | 2018-10-29 01:33 | NUR ---
Nursing Progress Note: Legal hold: LPS conserved Client on involuntary status for GD, psychosis Report received from MACKENZIE Gonzalez with use of SBAR Why are they here: 68 year old male with hx of schizophrenia presents to the ED on a 5150 mental health hold. 5150 was written by a clinician due to the patient being unable to care for himself. Due to the 5150 report that patient was released from alf yesterday and attempted to go to his sisters house. It was proved that the patient is unable to provide food, half-way, or clothing for himself and is having grandiose delusions that he is a "criminal court judge going through time travel." Patient has no intentions for suicide or homicide. Per Natasha Robert's note, SUPPLIER QUALITY ENGINEER, the patient is conserved by the state and she is working and finding placement for him. Assessment What has happened this shift: Patient is pacing the halls with headphones on this evening. He keeps to himself and will interact when spoken to. He reported anxiety this evening at snack time. He could not completely identify why he was experiencing anxiety. Ativan 1mg was administered with good effect. When asked how his day was he stated "It was rejected." but could not/would not elaborate on what he meant by that. He was cooperative for his evening medications. S/I, H/I: Denies A/VH: Denies Sleep: See sleep assessment ADL's: Independent. Group attendance: No groups this shift Were meds taken: Yes Any med S/E None reported/none observed Mental Status Exam Appearance: Disheveled, wears a beanie and headphones. Eye contact: Good Behavior: Calm, cooperative, pacing. Speech: Normal volume, rate and rhythm Mood: Euthymic, anxious Affect: Flat Thought process: Delayed Thought Content: Difficult to assess patient keeps headphones on and keeps conversation to a minimum Cognition: Oriented x3. pt. confused at how he was admitted. Insight: Poor Judgment: Poor Interventions PRN's used: None Therapeutic interventions: 1:1 assessment at the bedside. Provided therapeutic communication and active listening, medication administration/monitoring/education, reality orientation, symptom identification and management, Q 15 min checks. Restraints/seclusion/emergency medication: None Justification of Continued Inpatient Treatment: Pt is gravely disabled unable to verbalize a plan for food,clothing and half-way. Interrupting current crisis.
[2018-10-29] MEDS: lactulose 20gm/30ml cup PO SCH ×2 (07:22→20:56)
[2018-10-29] MEDS: hydrOXYzine 25 MG tablet PO PRN (07:22)
[2018-10-29] MEDS: lisinopril 10 MG tablet PO SCH (07:24)
[2018-10-29 08:38] VITALS: BP 128/79
--- NOTE | 2018-10-29 12:55 | NUR ---
Initial: Pt admit with [facility] with psychosis. Pt currently on a regular diet with documented 75-100% PO intake meeting nutrient needs. LBM 10/28. No edema or wounds. No nutrition diagnosis at this time. Will continue to follow. Recommendations: 1) Continue with regular diet 2) Weekly wt Addendum: 10/29/18 at [address] Amended: Links added.
--- NOTE | 2018-10-29 15:21 | NUR ---
Nursing Progress Note: Legal hold: LPS Client on involuntary status for GD. Report received from MACKENZIE Garsia with use of SBAR Why are they here: 68 year old male with hx of schizophrenia presents to the ED on a 5150 mental health hold. 5150 was written by a clinician due to the patient being unable to care for himself. Due to the 5150 report that patient was released from detention yesterday and attempted to go to his sisters house. It was proved that the patient is unable to proved food, correction, or clothing for himself and is having grandiose delusions that he is a "tobacco cloth reclaimer going through time travel." Patient has no intentions for suicide or homicide. Per Natasha Robert's note, CONSTRUCTION SITE CROSSING GUARD, the patient is conserved by the [facility] and the [facility] is working at finding placement for him. Assessment What has happened this shift: Client is lying in bed asleep at change of shift. He is easily awakened for medication pass and breakfast. He takes all medications as prescribed. Patient is pleasant and cooperative. One to one assessment completed at bedside. He does not initiate conversation. Will answer closed ended questions when asked. No delusional thoughts expressed. Denies hallucinations. He attended groups but could not recount anything said in the groups. He knows he is in a hospital and he states [facility]. He believes [facility] is the president and the year is 1980. He states he is pacing to make the time go faster. He wants to go home and back to [place]. 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 S/I, H/I:denies A/VH:denies Sleep: See sleep hours ADL's: Needs cuing. encouraged to shower Group attendance: Came to group room, but left in the middle of group Were meds taken: Yes Any med S/E None reported/none observed Mental Status Exam Appearance: Disheveled, hygiene poor, prompted to shower today Eye contact: fair Behavior: Calm, cooperative, paces at times Speech:clear, slowed, impoverished Mood: Euthymic Affect: Constricted Thought process: nonlinear, disorganized, loose Thought Content: Delusions regarding employment Cognition: Oriented x2. To place and self. Confused, poor historian Insight:poor Judgment:poor Interventions PRN's used: atarax Therapeutic interventions: 1:1 therapeutic listening Restraints/seclusion/emergency medication: none Justification of Continued Inpatient Treatment:Pt is gravely disabled unable to verbalize a plan for food,clothing and correction. Interrupting current crisis.
[2018-10-29 19:00] VITALS: BP 143/76
[2018-10-29] MEDS: amLODIPine 2.5mg tablet PO SCH (20:56)
[2018-10-29] MEDS: risperiDONE 2mg tablet PO SCH (20:57)
[2018-10-29] MEDS: LORazepam 1 MG tablet PO PRN (20:59)
--- NOTE | 2018-10-30 00:47 | NUR ---
SOCIAL WORK NOTE: Spoke w/ pt's Conservator, Heydi Isaacs - Public Guardian @ [phone]. I faxed pt clothing sizes to her, per her request and she will be bringing them over soon. Lili Samson, ACSW
--- NOTE | 2018-10-30 03:05 | NUR ---
Nursing Progress Note: Legal hold: LPS Client on involuntary status for GD. Report received from MACKENZIE Gonzalez with use of SBAR Why are they here: 68 year old male with hx of schizophrenia presents to the ED on a 5150 mental health hold. 5150 was written by a clinician due to the patient being unable to care for himself. Due to the 5150 report that patient was released from longterm yesterday and attempted to go to his sisters house. It was proved that the patient is unable to proved food, retirement, or clothing for himself and is having grandiose delusions that he is a "canal equipment mechanic going through time travel." Patient has no intentions for suicide or homicide. Per Natasha Robert's note, OPERATIONS MGR, the patient is conserved by the [facility] and the [facility] is working at finding placement for him. Assessment What has happened this shift: This patient is laying in bed sleeping at shift change. He awakens easily. This patients thought process is linear, he is delusional however. This patient Believes the president is Obama, "It is the 80's," etc. This patient denies S/I or H/I. He is plesant to speak with. He presents as unkept. The patient has however recently showered. The patient has been medication compliant. The patient tells this residential mortgage underwriter that he is not depressed. He has been eating meals and attending group. He is medication compliant. The patient was advised that he is in a safe place. S/I, H/I:denies A/VH:Denies Sleep: See sleep hours ADL's: Needs cuing. encouraged to shower Group attendance: Came to group room, but left in the middle of group Were medications taken: Yes Any med S/E None reported/none observed Mental Status Exam Appearance: Disheveled, hygiene poor, prompted to shower today Eye contact: Fair Behavior: Calm, cooperative, paces at times Speech:clear, slowed, impoverished Mood: Euthymic Affect: Constricted Thought process: nonlinear, disorganized, loose Thought Content: Delusions regarding employment Cognition: Oriented x2. To place and self. Confused, poor historian Insight:Poor Judgment:Poor Interventions PRN's used: atarax Therapeutic interventions: 1:1 therapeutic listening Restraints/seclusion/emergency medication: none Justification of Continued Inpatient Treatment:Pt is gravely disabled unable to verbalize a plan for food,clothing and retirement. Interrupting current crisis.
[2018-10-30 08:00] VITALS: BP 103/63
[2018-10-30] MEDS: lactulose 20gm/30ml cup PO SCH ×2 (08:00→21:06)
[2018-10-30] MEDS: lisinopril 10 MG tablet PO SCH (08:01)
--- NOTE | 2018-10-30 12:19 | NUR ---
Nursing Progress Note: Legal hold: LPS Client on involuntary status for GD. Report received from Mercedes charge nurse, RN with use of SBAR Why are they here? 68 year old male with history of schizophrenia presents to the ED on a 5150 mental health hold. 5150 was written by a clinician due to the patient being unable to care for himself. Due to the 5150 report that patient was released from detention yesterday and attempted to go to his sisters house. It was proved that the patient is unable to provide food, senior care, or clothing for himself and is having grandiose delusions that he is a "fish cake maker going through time travel." Patient has no intentions for suicide or homicide. Per Natasha Robert's note, HAIR MIXER, the patient is conserved by the [facility] and the [facility] is working at finding placement for him. Assessment What has happened this shift: The patient was asleep in bed at shift change. He was easily awakened for medications. He took all medications as prescribed with no issues. He is not experiencing any side effects. Patient is pleasant. He spends a considerable amount of time pacing in the hallway. He is present on the unit and at meals. He does not initiate conversation, but answers both closed ended and open ended questions. He knows who he is and that he is in a hospital. Prompted patient to shower and change clothes. Unsuccessful. 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 He seems nonchalant about his mental health issues. S/I, H/I: Denies A/VH: Denies Sleep: See sleep hours ADL's: Needs prompting. Encouraged to shower Group attendance: Yes Were medications taken: Yes Any med S/E: None reported/none observed Mental Status Exam Appearance: Disheveled, hygiene poor, prompted to shower today, in same clothes as yesterday. Eye contact: Good Behavior: Calm, cooperative, paces Speech: clear, slowed, impoverished, mumbles Mood: Euthymic Affect: Bright, expressive Thought process: nonlinear, disorganized, loose associations Thought Content: Delusions of reference and perseverative Cognition: Oriented x2 including to place and self. Confused, poor historian, impaired Insight: Poor Judgment: Poor Interventions PRN's used: None Therapeutic interventions: 1:1 therapeutic listening Restraints/seclusion/emergency medication: none Justification of Continued Inpatient Treatment: Pt is gravely disabled unable to verbalize a plan for food, clothing and senior care. Interrupting current crisis.
[2018-10-30 19:38] VITALS: BP 137/72
[2018-10-30] MEDS: risperiDONE 2mg tablet PO SCH (21:05)
[2018-10-30] MEDS: amLODIPine 2.5mg tablet PO SCH (21:05)
--- NOTE | 2018-10-31 01:01 | NUR ---
Nursing Progress Note: Legal hold: LPS Client on involuntary status for GD. Report received from MACKENZIE Gonzalez with use of SBAR Why are they here? 68 year old male with history of schizophrenia presents to the ED on a 5150 mental health hold. 5150 was written by a clinician due to the patient being unable to care for himself. Due to the 5150 report that patient was released from residential yesterday and attempted to go to his sisters house. It was proved that the patient is unable to provide food, nursing home, or clothing for himself and is having grandiose delusions that he is a "offline editor going through time travel." Patient has no intentions for suicide or homicide. Per Natasha Robert's note, CLIENT RENEWAL SPECIALIST, the patient is conserved by the [facility] and the [facility] is working at finding placement for him. Assessment This patient is awake and talking at shif change. He is low Fowlers in bed. He sits up easily to converse. This patient is cooperative and is exhibiting slow speech. He remains delusional. Patient believes it is the and thinks President Brittney is still in office. This patient has poor hygene. He has been encouraged to shower and effect self care on both shifts. The patient is upbeat, he converses easily. He does however self isolate in his room on the flower maker. The patient eats his meals and remains compliant on taking his medications he denies H/I or S/I. This patient is advised that he is in a safe place. S/I, H/I: Denies A/VH: Denies Sleep: See sleep hours ADL's: Needs prompting. Encouraged to shower Group attendance: Yes Were medications taken: Yes Any med S/E: None reported/none observed Mental Status Exam Appearance: Disheveled, hygiene is poor. Eye contact: Good Behavior: Calm, cooperative, paces Speech: clear, slowed, impoverished. Mood: Euthymic Affect: Bright, expressive Thought process: nonlinear, disorganized, loose associations Thought Content: Delusions of reference and perseverative Cognition:Patient is oriented to person and place, not time or always to situation. Insight: Poor Judgment: Poor Interventions PRN's used: Atarax for late night anxiety. Therapeutic interventions: 1:1 therapeutic listening Restraints/seclusion/emergency medication: none Justification of Continued Inpatient Treatment: Pt is gravely disabled unable to verbalize a plan for food, clothing and nursing home. Interrupting current crisis.
[2018-10-31] MEDS: lactulose 20gm/30ml cup PO SCH ×2 (07:54→20:33)
[2018-10-31] MEDS: lisinopril 10 MG tablet PO SCH (07:55)
[2018-10-31 08:22] VITALS: BP 110/55
--- NOTE | 2018-10-31 17:15 | NUR ---
Nursing Progress Note: Legal hold: LPS Client on involuntary status for GD. Report received from Candelario RN with use of SBAR Why are they here? 68 year old male with history of schizophrenia presents to the ED on a 5150 mental health hold. 5150 was written by a clinician due to the patient being unable to care for himself. Due to the 5150 report that patient was released from [facility] yesterday and attempted to go to his sisters house. It was proved that the patient is unable to provide food, [place] [facility], or clothing for himself and is having grandiose delusions that he is a "superior court judge going through time travel." Patient has no intentions for suicide or homicide. Per Natasha Robert's note, PROJECT ARCHITECT, the patient is conserved by the [facility] and the [facility] is working at finding placement for him. Assessment Pt. asleep at start of shift. Pt. took medications and ate all meals in community room. 1:1 done at bedside. Pt. is A&Ox3 but not oriented to circumstances. Pt. is delusional about being currently employed. Pt. denies SI/HI, A/V H. Pt. went to groups. Pt. seen pacing in hallway with headphones. Pt. does not speak unless spoken to. S/I, H/I: Denies A/VH: Denies Sleep: 7.25 hours ADL's: Needs prompting. Encouraged to shower and shave. Group attendance: Yes Were medications taken: Yes Any med S/E: None reported/none observed Mental Status Exam Appearance: Disheveled, hygiene is poor. Eye contact: Good Behavior: Calm, cooperative, paces Speech: clear, slowed Mood: Euthymic Affect: Bright, expressive Thought process: nonlinear, loose associations Thought Content: Poverty of thought Cognition:Patient is oriented to person, place, and time, not oriented to circumstance. Insight: Poor Judgment: Poor Interventions PRN's used: None Therapeutic interventions: 1:1 assessment that included active listening with positive feedback and reinforcement. Provided medication education as needed and monitored for effectiveness as well adverse reactions. Provided therapeutic milieu. Q15 min safety checks. Restraints/seclusion/emergency medication: none Justification of Continued Inpatient Treatment: Pt is gravely disabled unable to verbalize a plan for food, clothing and [place] [facility]. Interrupting current crisis.
[2018-10-31] MEDS: risperiDONE 2mg tablet PO SCH (20:33)
[2018-10-31] MEDS: amLODIPine 2.5mg tablet PO SCH (20:33)
[2018-10-31 20:35] VITALS: BP 147/76
--- NOTE | 2018-10-31 22:27 | NUR ---
Nursing Progress Note: Legal hold: LPS conserved Client on involuntary status for GD, psychosis Report received from MACKENZIE Gonzalez with use of SBAR Why are they here: 68 year old male with hx of schizophrenia presents to the ED on a 5150 mental health hold. 5150 was written by a clinician due to the patient being unable to care for himself. Due to the 5150 report that patient was released from skilled nursing yesterday and attempted to go to his sisters house. It was proved that the patient is unable to provide food, snf, or clothing for himself and is having grandiose delusions that he is a "finish filer going through time travel." Patient has no intentions for suicide or homicide. Per Natasha Robert's note, GLOBAL CMO, the patient is conserved by the state and she is working and finding placement for him. Assessment What has happened this shift: Patient is pacing the halls at the change of shift then had a cup of hot chocolate in the TV room. During 1:1, pt did not make any delusional or grandiose statements. He denied A/VHs and kept conversation to a minimum, only answering when asked a direct question. When asked how his day was and how he is feeling "Pt stated I'm okay; I watched them play corn hole." Pt does not interact with peers on the unit, and shortly after HS Snack went to his room to rest. He is compliant with all his evening medications. S/I, H/I: Denies A/VH: Denies Sleep: See Sleep Assessment ADL's: Independent Group attendance: Y - HS Snack Were meds taken: Y Any med S/E: None reported/none observed Mental Status Exam Appearance: Disheveled, wears a beanie and personal attire, unshaven Eye contact: Direct Behavior: Calm, Cooperative Speech: Normal volume, rate and rhythm Mood: Euthymic Affect: Blunted with brightening Thought process: Delayed Thought Content: Difficult to assess as pt keeps conversation to a minimum Cognition: Oriented x3. pt. confused at how he was admitted. Insight: Poor Judgment: Poor Interventions PRN's used: None Therapeutic interventions: 1:1 assessment at the bedside. Provided therapeutic communication and active listening, medication administration/monitoring/education, reality orientation, symptom identification and management, Q 15 min checks. Restraints/seclusion/emergency medication: None Justification of Continued Inpatient Treatment:Pt is gravely disabled unable to verbalize a plan for food,clothing and snf. Interrupting current crisis and determining placement.
[2018-11-01 07:30] VITALS: BP 133/77
[2018-11-01] MEDS: lactulose 20gm/30ml cup PO SCH ×2 (07:59→20:47)
[2018-11-01] MEDS: lisinopril 10 MG tablet PO SCH (07:59)
--- NOTE | 2018-11-01 17:30 | NUR ---
Nursing Progress Note: Legal hold: LPS conserved Client on involuntary status for GD, psychosis Report received from MACKENZIE Montano with use of SBAR Why are they here: 68 year old male with hx of schizophrenia presents to the ED on a 5150 mental health hold. 5150 was written by a clinician due to the patient being unable to care for himself. Due to the 5150 report that patient was released from skilled nursing yesterday and attempted to go to his sisters house. It was proved that the patient is unable to provide food, senior care, or clothing for himself and is having grandiose delusions that he is a "food beverage manager going through time travel." Patient has no intentions for suicide or homicide. Per Natasha Robert's note, PRINT BINDING WORKER, the patient is conserved by the state and she is working and finding placement for him. Assessment What has happened this shift: Pt. asleep at start of shift. Pt. took medications and ate all meals in community room. 1:1 done at bedside. Pt. 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 Pt. is A&Ox3 but not oriented to circumstances. Pt. is delusional about being currently employed. Pt. denies SI/HI, A/V H. Pt. went to groups. Pt. seen pacing in hallway with headphones. Pt. does not speak unless spoken to. S/I, H/I: Denies A/VH: Denies Sleep: 8.0 ADL's: Independent Group attendance: Y Were meds taken: Y Any med S/E: None reported/none observed Mental Status Exam Appearance: Disheveled, wears, personal attire, does not want to shave. Eye contact: Direct Behavior: Calm, Cooperative Speech: Normal volume, rate and rhythm Mood: Euthymic Affect: Blunted with brightening Thought process: Delayed Thought Content: Difficult to assess as pt keeps conversation to a minimum Cognition: Oriented x3. pt. confused at how he was admitted. Insight: Poor Judgment: Poor Interventions PRN's used: None Therapeutic interventions: 1:1 assessment at the bedside. Provided therapeutic communication and active listening, medication administration/monitoring/education, reality orientation, symptom identification and management, Q 15 min checks. Restraints/seclusion/emergency medication: None Justification of Continued Inpatient Treatment:Pt is gravely disabled unable to verbalize a plan for food,clothing and senior care. Interrupting current crisis and determining placement.
[2018-11-01 20:00] VITALS: BP 147/77
[2018-11-01] MEDS: amLODIPine 2.5mg tablet PO SCH (20:46)
[2018-11-01] MEDS: risperiDONE 2mg tablet PO SCH (20:46)
--- NOTE | 2018-11-01 23:30 | NUR ---
Nursing Progress Note: Legal hold: LPS conserved Client on involuntary status for GD, psychosis Report received from MACKENZIE Gonzlaez with use of SBAR Why are they here: 68 year old male with hx of schizophrenia presents to the ED on a 5150 mental health hold. 5150 was written by a clinician due to the patient being unable to care for himself. Due to the 5150 report that patient was released from snf yesterday and attempted to go to his sisters house. It was proved that the patient is unable to provide food, custodial, or clothing for himself and is having grandiose delusions that he is a "associate juvenile court judge going through time travel." Patient has no intentions for suicide or homicide. Per Natasha Robert's note, BUNDLE CUTTER, the patient is conserved by the state and she is working and finding placement for him. Assessment What has happened this shift: Patient is pacing the halls at the change of shift then watched a show in the TV room. During 1:1, pt did not make any delusional or grandiose statements. He denied A/VHs and kept conversation to a minimum, only answering when asked a direct question. When asked how his day was and how he is feeling "I had a good day. No outside but a good day." Pt does not interact with peers on the unit, and shortly after HS Snack went to his room to rest. He is compliant with all his evening medications. S/I, H/I: Denies A/VH: Denies Sleep: See Sleep Assessment ADL's: Independent Group attendance: Y - HS Snack Were meds taken: Y Any med S/E: None reported/none observed Mental Status Exam Appearance: Disheveled, wears a beanie and personal attire, unshaven Eye contact: Direct Behavior: Calm, Cooperative Speech: Normal volume, rate and rhythm Mood: "Good" Affect: Blunted with brightening Thought process: Delayed Thought Content: Difficult to assess as pt keeps conversation to a minimum Cognition: Oriented x3. pt. confused as to time. Insight: Poor Judgment: Poor Interventions PRN's used: None Therapeutic interventions: 1:1 assessment at the bedside. Provided therapeutic communication and active listening, medication administration/monitoring/education, reality orientation, symptom identification and management, Q 15 min checks. Restraints/seclusion/emergency medication: None Justification of Continued Inpatient Treatment:Pt is gravely disabled unable to verbalize a plan for food,clothing and custodial. Interrupting current crisis and determining placement.
[2018-11-02] MEDS: lactulose 20gm/30ml cup PO SCH ×2 (07:51→21:01)
[2018-11-02] MEDS: lisinopril 10 MG tablet PO SCH (07:52)
[2018-11-02 08:00] VITALS: BP 134/84
--- NOTE | 2018-11-02 12:22 | NUR ---
DISCHARGE PLANNING: Phoned [facility] and LM to notify pt is ready for placement and they could begin looking for his placement. Asked if they would give a return phone call to confirm they received message. TAN Graf Addendum: 11/02/18 at 1436 by Lili Samson SS Phoned pt's PG, Heydi Song, to confirm she received fax w/ pts clothing sizes/list of needs-yes she did. She is waiting for pt's money to come in. Also notified her that this entry writer notified the [place] office that pt is ready for placement and to please begin looking. TAN Graf
--- NOTE | 2018-11-02 17:00 | NUR ---
Nursing Progress Note: Legal hold: LPS conserved Client on involuntary status for GD, psychosis Report received from MACKENZIE Montano with use of SBAR Why are they here: 68 year old male with hx of schizophrenia presents to the ED on a 5150 mental health hold. 5150 was written by a clinician due to the patient being unable to care for himself. Due to the 5150 report that patient was released from retirement yesterday and attempted to go to his sisters house. It was proved that the patient is unable to provide food, senior care, or clothing for himself and is having grandiose delusions that he is a "director agency & strategic partnerships going through time travel." Patient has no intentions for suicide or homicide. Per Natasha Robert's note, GOVERNOR ASSEMBLER HYDRAULIC, the patient is conserved by the state and she is working and finding placement for him. Assessment What has happened this shift: Pt. asleep at start of shift. Pt. took medications and ate all meals in community room. 1:1 done at bedside. Pt. continues to state that he is going back to work when he is discharged from here. Pt. is A&Ox3 but not oriented to circumstances. Pt. is delusional about being currently employed. Pt. denies SI/HI, A/V H. Pt. went to groups. Pt. seen pacing in hallway with headphones. Pt. does not speak unless spoken to. S/I, H/I: Denies A/VH: Denies Sleep: See Sleep Assessment ADL's: Independent Group attendance: Y Were meds taken: Y Any med S/E: None reported/none observed Mental Status Exam Appearance: Disheveled, wears a beanie and personal attire, unshaven Eye contact: Direct Behavior: Calm, Cooperative Speech: Normal volume, rate and rhythm Mood: "OK" Affect: Blunted with brightening Thought process: Delayed Thought Content: Difficult to assess as pt keeps conversation to a minimum Cognition: Oriented x3. pt. confused as to time. Insight: Poor Judgment: Poor Interventions PRN's used: None Therapeutic interventions: 1:1 assessment at the bedside. Provided therapeutic communication and active listening, medication administration/monitoring/education, reality orientation, symptom identification and management, Q 15 min checks. Restraints/seclusion/emergency medication: None Justification of Continued Inpatient Treatment:Pt is gravely disabled unable to verbalize a plan for food,clothing and senior care. Interrupting current crisis and determining placement.
[2018-11-02 20:00] VITALS: BP 130/80
[2018-11-02] MEDS: risperiDONE 2mg tablet PO SCH (21:01)
[2018-11-02] MEDS: amLODIPine 2.5mg tablet PO SCH (21:01)
[2018-11-02] MEDS: LORazepam 1 MG tablet PO PRN (21:04)
--- NOTE | 2018-11-03 02:45 | NUR ---
Nursing Progress Note: Legal hold: LPS conserved Client on involuntary status for GD, psychosis Report received from MACKENZIE Torres with use of SBAR Why are they here: 68 year old male with hx of schizophrenia presents to the ED on a 5150 mental health hold. 5150 was written by a clinician due to the patient being unable to care for himself. Due to the 5150 report that patient was released from retirement yesterday and attempted to go to his sisters house. It was proved that the patient is unable to provide food, care home, or clothing for himself and is having grandiose delusions that he is a "diving judge going through time travel." Patient has no intentions for suicide or homicide. Per Natasha Robert's note, TREASURY MANAGEMENT SALES CONSULTANT, the patient is conserved by the state and she is working and finding placement for him. Assessment What has happened this shift: Patient is pacing the halls at the change of shift then watched a show in the TV room. During 1:1, pt did not make any delusional or grandiose statements. He denied A/VHs and kept conversation to a minimum, only answering when asked a direct question. He did state he would like "something to calm me" and said yes when Rn asked if he was feeling anxious. When asked how his day was "It was good." Pt does not interact with peers on the unit, and shortly after HS Snack went to his room to rest. He is compliant with all his evening medications. S/I, H/I: Denies A/VH: Denies Sleep: See Sleep Assessment ADL's: Independent Group attendance: Y - HS Snack Were meds taken: Y Any med S/E: None reported/none observed Mental Status Exam Appearance: Disheveled, wears a beanie and personal attire, unshaven Eye contact: Direct Behavior: Calm, Cooperative Speech: Normal volume, rate and rhythm Mood: "Good" Affect: Blunted with brightening Thought process: Delayed Thought Content: Difficult to assess as pt keeps conversation to a minimum Cognition: Oriented x3. pt. confused as to time. Insight: Poor Judgment: Poor Interventions PRN's used: None Therapeutic interventions: 1:1 assessment at the bedside. Provided therapeutic communication and active listening, medication administration/monitoring/education, reality orientation, symptom identification and management, Q 15 min checks. Restraints/seclusion/emergency medication: None Justification of Continued Inpatient Treatment:Pt is gravely disabled unable to verbalize a plan for food,clothing and care home. Interrupting current crisis and determining placement.
[2018-11-03 08:00] VITALS: BP 145/76
[2018-11-03] MEDS: lactulose 20gm/30ml cup PO SCH ×2 (08:09→20:33)
[2018-11-03] MEDS: lisinopril 10 MG tablet PO SCH (08:12)
--- NOTE | 2018-11-03 17:09 | NUR ---
Nursing Progress Note: Legal hold: LPS conserved Client on involuntary status for GD, psychosis Report received from MACKENZIE Montano with use of SBAR Why are they here: 68 year old male with hx of schizophrenia presents to the ED on a 5150 mental health hold. 5150 was written by a clinician due to the patient being unable to care for himself. Due to the 5150 report that patient was released from long term yesterday and attempted to go to his sisters house. It was proved that the patient is unable to provide food, jail, or clothing for himself and is having grandiose delusions that he is a "dressage judge going through time travel." Patient has no intentions for suicide or homicide. Per Natasha Robert's note, TOMAHAWK WEAPON SYSTEM OPERATOR, the patient is conserved by the state and she is working and finding placement for him. Assessment What has happened this shift: Received patient visible on the unit. Patient spent a good portion of the day pacing slowly in the hallway. When questioned patient stated he was doing fine and denied auditory hallucinations. Patient also denies suicidal thoughts. When approached and interacted with, patient affect brightens a little. Otherwise patient stayed mostly to himself with a flat affect. Patient attended meals and groups with minimal participation. Patient states he is awaiting for his conservator to find him a place to stay and that hes looking forward to getting out of here. S/I, H/I: Denies A/VH: Denies Sleep: 6.5 hours last noc, no naps today ADL's: Independent Group attendance: Y Were meds taken: Y Any med S/E: None reported/none observed Mental Status Exam Appearance: Disheveled, wears a beanie and personal attire, unshaven Eye contact: Direct Behavior: Calm, Cooperative Speech: Normal volume, rate and rhythm Mood: "OK" Affect: Blunted with brightening Thought process: Delayed Thought Content: Difficult to assess as pt keeps conversation to a minimum Cognition: Oriented x3. pt. confused as to time. Insight: Poor Judgment: Poor Interventions PRN's used: None Therapeutic interventions: 1:1 assessment at the bedside. Provided therapeutic communication and active listening, medication administration/monitoring/education, reality orientation, symptom identification and management, Q 15 min checks. Restraints/seclusion/emergency medication: None Justification of Continued Inpatient Treatment:Pt is gravely disabled unable to verbalize a plan for food,clothing and jail. Interrupting current crisis and determining placement.
[2018-11-03 20:00] VITALS: BP 137/71
[2018-11-03] MEDS: risperiDONE 2mg tablet PO SCH (20:34)
[2018-11-03] MEDS: amLODIPine 2.5mg tablet PO SCH (20:34)
--- NOTE | 2018-11-04 02:12 | NUR ---
Nursing Progress Note: Legal hold: LPS conserved Client on involuntary status for GD, psychosis Report received from ABHISHEK Millan with use of SBAR Why are they here: 68 year old male with hx of schizophrenia presents to the ED on a 5150 mental health hold. 5150 was written by a clinician due to the patient being unable to care for himself. Due to the 5150 report that patient was released from long-term yesterday and attempted to go to his sisters house. It was proved that the patient is unable to provide food, retirement, or clothing for himself and is having grandiose delusions that he is a "stock handler going through time travel." Patient has no intentions for suicide or homicide. Per Natasha Robert's note, AIRPLANE MECHANIC APPRENTICE, the patient is conserved by the state and she is working and finding placement for him. Assessment What has happened this shift: Pt was visible on the unit at shift change. Pt moved back and forth from his room to the group room. Pt was cooperative and pleasant. Pt was watching TV with other peers, but did not engage in conversation. Pt was medication compliant and requested something to sleep. HS medications were administered and reiterated that is he need additional help to sleep then to let me know. Pt. has been sleeping comfortably throughout the shift. Pt states he used to hear voices, but not in a long time. Pt denies SI/HI. Pt stayed up for HS snack then retired to bed. S/I, H/I: Pt denies. None observed A/VH: Pt denies. None observed Sleep: Currently sleeping comfortably. See sleep notation ADL's: Independent Group attendance: shift nurse manager, no group Were meds taken: Medication compliant Any med S/E: None reported/none observed Mental Status Exam Appearance: Disheveled, wears a beanie and personal attire, unshaven Eye contact: Direct Behavior: Calm, cooperative, baseline Speech: Normal volume, rate and rhythm Mood: Pleasant Affect: Blunted with brightening Thought process: Delayed Thought Content: Difficult to assess as pt keeps conversation to a minimum Cognition: Oriented x3. Insight: Poor Judgment: Poor Interventions PRN's used: None Therapeutic interventions: 1:1 assessment at the bedside. Provided therapeutic communication and active listening, medication administration/monitoring/education, reality orientation, symptom identification and management, Q 15 min checks. Restraints/seclusion/emergency medication: None Justification of Continued Inpatient Treatment:Pt is gravely disabled unable to verbalize a plan for food,clothing and retirement. Interrupting current crisis and determining placement.
[2018-11-04 08:00] VITALS: BP 129/74
[2018-11-04] MEDS: lactulose 20gm/30ml cup PO SCH ×2 (08:32→20:31)
[2018-11-04] MEDS: lisinopril 10 MG tablet PO SCH (08:33)
--- NOTE | 2018-11-04 14:33 | NUR ---
Nursing Progress Note: Legal hold: LPS conserved Client on involuntary status for GD, psychosis Report received from ABHISHEK Calvo with use of SBAR Why are they here: 68 year old male with hx of schizophrenia presents to the ED on a 5150 mental health hold. 5150 was written by a clinician due to the patient being unable to care for himself. Due to the 5150 report that patient was released from residential yesterday and attempted to go to his sisters house. It was proved that the patient is unable to provide food, mcc, or clothing for himself and is having grandiose delusions that he is a "circuit judge going through time travel." Patient has no intentions for suicide or homicide. Per Natasha Robert's note, EDGING MACHINE FEEDER, the patient is conserved by the state and she is working on finding placement for him. Assessment What has happened this shift: Pt denied depression, anxiety, SI/HI/AH/VH. Pt was disoriented to the date, believed it was the 2017 or 2019. Reoriented to current date/year. No delusional statements reported to or observed by this RN this shift. S/I, H/I: Pt denies. A/VH: Pt denies. Sleep: Slept 8 Hrs per noc shift report ADL's: Independent Group attendance: No, pt declines to attend groups Were meds taken: Only takes Lactulose and Zestril in the am Any med S/E: None noted or reported Mental Status Exam Appearance: Neat, clean Eye contact: Good Behavior: Pleasant, cooperative, paces in the [place] Speech: Normal volume, rate and rhythm, poverty of speech Mood: Pleasant Affect: WNL Thought process: linear Thought Content: Poverty of thought, pt answers questions but does not volunteer information or express thoughts/feelings. Cognition: Oriented x3, D/o to time Insight: Poor Judgment: Poor Interventions PRN's used: None Therapeutic interventions: 1:1 assessment, reality orientation, medication administration/monitoring/education, encouragement to perform personal hygiene and attend groups, Q 15 min safety checks Restraints/seclusion/emergency medication: None Justification of Continued Inpatient Treatment:Pt is gravely disabled unable to verbalize a plan for food,clothing and mcc. Interrupting current crisis and determining placement.
--- NOTE | 2018-11-04 17:57 | NUR ---
DISCHARGE PLANNING: Phoned [facility] to request placement update. Spoke w/ Lili. She explained he was declined by [facility] and [facility]. [facility]
[2018-11-04 19:00] VITALS: BP 124/79
[2018-11-04] MEDS: risperiDONE 2mg tablet PO SCH (20:31)
[2018-11-04] MEDS: amLODIPine 2.5mg tablet PO SCH (20:31)
[2018-11-04] MEDS: LORazepam 1 MG tablet PO PRN (21:08)
--- NOTE | 2018-11-04 23:45 | NUR ---
Nursing Progress Note: Legal hold: LPS conserved Client on involuntary status for GD, psychosis Report received from ABHISHEK Millan with use of SBAR Why are they here: 68 year old male with hx of schizophrenia presents to the ED on a 5150 mental health hold. 5150 was written by a clinician due to the patient being unable to care for himself. Due to the 5150 report that patient was released from intermediate yesterday and attempted to go to his sisters house. It was proved that the patient is unable to provide food, group home, or clothing for himself and is having grandiose delusions that he is a "early years teacher going through time travel." Patient has no intentions for suicide or homicide. Per Natasha Robert's note, CLINICAL PSYCHOLOGIST, the patient is conserved by the state and she is working and finding placement for him. Assessment What has happened this shift: Pt was visible on the unit at shift change. Pt was cooperative with medication administration and 1:1 assessment. Pt was up to HS snack then retired to his room . In conversation this screenplay writer and pt. 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 Pt requested an Ativan prior to bed, states he sleeps better. Pt denies SI/HI, A/VH. S/I, H/I: Pt denies. None observed A/VH: Pt denies. None observed Sleep: Currently sleeping comfortably. See sleep notation ADL's: Independent Group attendance: second shift supervisor, no group Were meds taken: Medication compliant Any med S/E: None reported/none observed Mental Status Exam Appearance: Disheveled Eye contact: Direct Behavior: Pleasant, cooperative, paces hallways Speech: Normal volume, rate and rhythm, poverty of speech Mood: Pleasant Affect: Blunted with brightening Thought process: Delayed Thought Content: Poverty of thought, pt responds when spoken to, but does not initiate Cognition: A&O x2 Insight: Poor Judgment: Poor Interventions PRN's used: Ativan Therapeutic interventions: 1:1 assessment at the bedside. Provided therapeutic communication and active listening, medication administration/monitoring/education, reality orientation, Q 15 min checks. Restraints/seclusion/emergency medication: None Justification of Continued Inpatient Treatment: Pt is gravely disabled unable to verbalize a plan for food,clothing and group home. Interrupting current crisis and determining placement.
[2018-11-05 07:52] VITALS: BP 122/51
[2018-11-05] MEDS: lactulose 20gm/30ml cup PO SCH ×2 (08:03→20:33)
[2018-11-05] MEDS: lisinopril 10 MG tablet PO SCH (08:04)
[2018-11-05 08:10] VITALS: BP 117/79
--- NOTE | 2018-11-05 09:43 | NUR ---
Reassessment: Pt continues with documented 75-100% PO intake on regular diet meeting nutrient needs. [facility] 11/04. No nutrition diagnosis at this time. Will continue to follow. Recommendations: 1) Continue with regular diet 2) Weekly wt Addendum: 11/05/18 at [address] Amended: Links added.
--- NOTE | 2018-11-05 11:10 | NUR ---
Nursing Progress Note: Legal hold: LPS conserved Client on involuntary status for GD, psychosis Report received from ABHISHEK Calvo with use of SBAR Why are they here: 68 year old male with hx of schizophrenia presents to the ED on a 5150 mental health hold. 5150 was written by a clinician due to the patient being unable to care for himself. Due to the 5150 report that patient was released from mcc yesterday and attempted to go to his sisters house. It was proved that the patient is unable to provide food, nursing home, or clothing for himself and is having grandiose delusions that he is a "administrative judge going through time travel." Patient has no intentions for suicide or homicide. Per Natasha Robert's note, ENVIRONMENTAL MARKETING REPRESENTATIVE, the patient is conserved by the state and she is working on finding placement for him. Assessment What has happened this shift: Pt denied depression, anxiety, SI/HI/AH/VH. Pt likes to pace back and forth in the hallway. Pt reported that he slept good until morning. When asked him what happened in the morning he replied, "I wake up feeling like I haven't slept at all." Pt is mostly isolative to self but will interact minimally when approached. S/I, H/I: Pt denies. A/VH: Pt denies. Sleep: Pt reports sleeping well though not feeling rested upon awakening ADL's: Independent Group attendance: No, pt declines to attend groups Were meds taken: Only takes Lactulose and Zestril in the am Any med S/E: None noted or reported Mental Status Exam Appearance: Clean, bearded, wearing a beige beanie today Eye contact: Good Behavior: Pleasant, cooperative, mostly isolative to self, paces in the [place] Speech: Normal volume, rate and rhythm, poverty of speech Mood: Pleasant Affect: blunted Thought process: linear Thought Content: C/o not feeling rested after sleeping all night, poverty of thought Cognition: A/O X 3, D/o to time Insight: Poor Judgment: Poor Interventions PRN's used: None Therapeutic interventions: 1:1 assessment, medication administration/monitoring/education, encouragement to perform personal hygiene and attend groups, Q 15 min safety checks Restraints/seclusion/emergency medication: None Justification of Continued Inpatient Treatment: Pt is gravely disabled unable to verbalize a plan for food,clothing and nursing home. Pt is conserved and awaiting placement. Addendum: 11/05/18 at 1137 by Aleja Medrano RN (Lee) Pt's head does move at times from side to side in what appears to be a mild neck tremor. Addendum: 11/05/18 at 1516 by Aleja Medrano RN (Lee) Pt attended afternoon group today.
[2018-11-05 19:00] VITALS: BP 145/78
[2018-11-05] MEDS: risperiDONE 2mg tablet PO SCH (20:33)
[2018-11-05] MEDS: amLODIPine 2.5mg tablet PO SCH (20:33)
--- NOTE | 2018-11-06 00:20 | NUR ---
Nursing Progress Note: Legal hold: LPS conserved Client on involuntary status for GD, psychosis Report received from ABHISHEK Millan with use of SBAR Why are they here: 68 year old male with hx of schizophrenia presents to the ED on a 5150 mental health hold. 5150 was written by a clinician due to the patient being unable to care for himself. Due to the 5150 report that patient was released from custodial yesterday and attempted to go to his sisters house. It was proved that the patient is unable to provide food, senior living, or clothing for himself and is having grandiose delusions that he is a "fisher weir going through time travel." Patient has no intentions for suicide or homicide. Per Natasha Robert's note, LIME KILN TENDER, the patient is conserved by the state and she is working and finding placement for him. Assessment What has happened this shift: Pt was seen on unit at shift change. Pt was cooperative. Pt talked about how he has timed travel to different years. Pt stated he went back to 1979, but didn't stay there for long. He went into the future states "we are going to make it, the world is going to make it." Pt stated his age was 29. S/I, H/I: Pt denies. None observed A/VH: Pt denies. None observed Sleep: Currently sleeping comfortably. See sleep notation ADL's: Independent Group attendance: slot shift supervisor, no group Were meds taken: Medication compliant Any med S/E: None reported or observed Mental Status Exam Appearance: Clean, bearded, pt wearing new black shirt Eye contact: Direct Behavior: Pleasant, cooperative, paces hallways Speech: Normal volume, rate and rhythm, poverty of speech Mood: Pleasant Affect: Blunted with brightening Thought process: Linear Thought Content: Poverty of thought, pt responds when spoken to, but does not initiate Cognition: A&O x2 Insight: Poor Judgment: Poor Interventions PRN's used: None Therapeutic interventions: 1:1 assessment at the bedside. Provided therapeutic communication and active listening, medication administration/monitoring/education, reality orientation, Q 15 min checks. Restraints/seclusion/emergency medication: None Justification of Continued Inpatient Treatment: Pt is gravely disabled unable to verbalize a plan for food,clothing and senior living. Interrupting current crisis and determining placement.
[2018-11-06] MEDS: lactulose 20gm/30ml cup PO SCH ×2 (07:30→20:48)
[2018-11-06] MEDS: lisinopril 10 MG tablet PO SCH (07:32)
[2018-11-06 08:00] VITALS: BP 127/64
--- NOTE | 2018-11-06 15:10 | NUR ---
Nursing Progress Note: Legal hold: LPS conserved Client on involuntary status for GD, psychosis Report received from ABHISHEK Calvo with use of SBAR Why are they here: 68 year old male with hx of schizophrenia presents to the ED on a 5150 mental health hold. 5150 was written by a clinician due to the patient being unable to care for himself. Due to the 5150 report that patient was released from long-term yesterday and attempted to go to his sisters house. It was proved that the patient is unable to provide food, fpc, or clothing for himself and is having grandiose delusions that he is a "county court judge going through time travel." Patient has no intentions for suicide or homicide. Per Natasha Robert's note, DICTAPHONE TECHNICIAN, the patient is conserved by the state and she is working on finding placement for him. Assessment What has happened this shift: Pt denied all symptoms today, states he still woke up tired even though he slept well. Pt likes to pace in the hallway, he is mostly isolative to self though does choose to interact at times with staff and peers. He maintains a pleasant, easily approachable demeanor. Pt was wearing a [employer] t-shirt today. Asked the pt if he rode motorcycles. He replied "nah, not anymore." Asked pt what kind of motorcycle he used to have, he replied lots of different ones but that he preferred trail bikes. No evidence of responding to internal stimuli, no obvious delusional statements made this shift. S/I, H/I: Pt denies. A/VH: Pt denies. Sleep: Pt reports sleeping well though not feeling rested upon awakening once again ADL's: Independent Group attendance: Yes Were meds taken: Only takes Lactulose and Zestril in the am Any med S/E: Continues to c/o fatigue when he gets up in the morning Mental Status Exam Appearance: Clean, bearded, wearing a beige beanie, beige pants and an HD t-shirt Eye contact: Good Behavior: Pleasant, cooperative, mostly isolative to self, paces in the [place] Speech: Normal volume, rate and rhythm, speech is minimal/poverty of speech Mood: Pleasant Affect: blunted Thought process: linear Thought Content: feels tired, receptive to attending groups Cognition: A/O X 3, D/o to time Insight: Poor Judgment: Poor Interventions PRN's used: None Therapeutic interventions: 1:1 assessment, therapeutic conversation, medication administration/monitoring/education, encouragement to perform personal hygiene and attend groups, positive reinforcement,Q 15 min safety checks Restraints/seclusion/emergency medication: None Justification of Continued Inpatient Treatment: Pt is gravely disabled unable to verbalize a plan for food,clothing and fpc. Pt is conserved and awaiting placement.
[2018-11-06 19:55] VITALS: BP 139/74
[2018-11-06] MEDS: amLODIPine 2.5mg tablet PO SCH (20:47)
[2018-11-06] MEDS: risperiDONE 2mg tablet PO SCH (20:47)
--- NOTE | 2018-11-07 03:55 | NUR ---
Nursing Progress Note: Legal hold: LPS conserved Client on involuntary status for GD, psychosis Report received from ABHISHEK Millan with use of SBAR Why are they here: 68 year old male with hx of schizophrenia presents to the ED on a 5150 mental health hold. 5150 was written by a clinician due to the patient being unable to care for himself. Due to the 5150 report that patient was [facility] from [facility] yesterday and attempted to go to his sisters house. It was proved that the patient is unable to provide food, long-term, or clothing for himself and is having grandiose delusions that he is a "county judge going through time travel." Patient has no intentions for suicide or homicide. Per Natasha Robert's note, NEON TUBE PUMPER, the patient is conserved by the state and she is working and finding placement for him. Assessment What has happened this shift: Pt was seen on unit at shift change. Pt was cooperative. 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 Pt denies SI/HI and AH/VH.Pt is on LPS conservatorship waiting placement. S/I, H/I: Pt denies. None observed A/VH: Pt denies. None observed Sleep: Currently sleeping comfortably. See sleep notation ADL's: Independent Group attendance: bench chemist, no group Were meds taken: Medication compliant Any med S/E: None reported or observed Mental Status Exam Appearance: Clean, bearded, pt wearing new black shirt Eye contact: Direct Behavior: Pleasant, cooperative, paces hallways Speech: Normal volume, rate and rhythm, poverty of speech Mood: Pleasant Affect: Blunted with brightening Thought process: Linear Thought Content: Poverty of thought, pt responds when spoken to, but does not initiate Cognition: A&O x2 Insight: Poor Judgment: Poor Interventions PRN's used: None Therapeutic interventions: 1:1 assessment at the bedside. Provided therapeutic communication and active listening, medication administration/monitoring/education, reality orientation, Q 15 min checks. Restraints/seclusion/emergency medication: None Justification of Continued Inpatient Treatment: Pt is gravely disabled unable to verbalize a plan for food,clothing and long-term. Interrupting current crisis and determining placement.
[2018-11-07] MEDS: lisinopril 10 MG tablet PO SCH (07:51)
[2018-11-07] MEDS: lactulose 20gm/30ml cup PO SCH ×2 (07:51→20:24)
[2018-11-07 08:00] VITALS: BP 126/75
--- NOTE | 2018-11-07 10:24 | NUR ---
Nursing Progress Note: Legal hold: LPS conserved Client on involuntary status for GD, psychosis Report received from MACKENZIE Mancini with use of SBAR Why are they here: 68 year old male with hx of schizophrenia presents to the ED on a 5150 mental health hold. 5150 was written by a clinician due to the patient being unable to care for himself. Due to the 5150 report that [facility] and attempted to go to his sisters house. It was proved that the patient is unable to provide food, care home, or clothing for himself and is having grandiose delusions that he is a "vessel liner going through time travel." Patient has no intentions for suicide or homicide. Per Natasha Robert's note, ULTIMATE HOOPS REFEREE, the patient is conserved by the state and she is working and finding placement for him. Assessment What has happened this shift: The patient is walking in the hallway at change of shift. Med compliant and eating meals. Denies suicidal thoughts. Also denies any and all types of hallucinations. Will talk to others if specifically asked but otherwise isolative. LPS conserved. S/I, H/I: Pt denies. None observed A/VH: Pt denies. None observed Sleep: None ADL's: Independent Group attendance: None Were meds taken: Medication compliant Any med S/E: None reported or observed Mental Status Exam Appearance: Clean, bearded Eye contact: Direct Behavior: Pleasant, cooperative, paces hallways Speech: Normal volume, rate and rhythm, poverty of speech Mood: Pleasant Affect: Blunted with brightening Thought process: Linear Thought Content: Poverty of thought, pt responds when spoken to, but does not initiate Cognition: A&O x2 Insight: Poor Judgment: Poor Interventions PRN's used: None Therapeutic interventions: 1:1 assessment at the bedside. Provided therapeutic communication and active listening, medication administration/monitoring/education, reality orientation, Q 15 min checks. Restraints/seclusion/emergency medication: None Justification of Continued Inpatient Treatment: Pt is gravely disabled unable to verbalize a plan for food,clothing and care home. Interrupting current crisis and determining placement.
[2018-11-07 20:00] VITALS: BP_SYST 121; BP_SYST 147; BP_DIAS 73; BP_DIAS 79
[2018-11-07] MEDS: amLODIPine 2.5mg tablet PO SCH (20:24)
[2018-11-07] MEDS: risperiDONE 2mg tablet PO SCH (20:24)
[2018-11-07 22:31] VITALS: BP 147/73
--- NOTE | 2018-11-08 03:01 | NUR ---
Nursing Progress Note: Legal hold: LPS conserved Client on involuntary status for GD, psychosis Report received from ABHISHEK Millan with use of SBAR Why are they here: 68 year old male with hx of schizophrenia presents to the ED on a 5150 mental health hold. 5150 was written by a clinician due to the patient being unable to care for himself. Due to the 5150 report that patient was released from senior living yesterday and attempted to go to his sisters house. It was proved that the patient is unable to provide food, mcfp, or clothing for himself and is having grandiose delusions that he is a "dough molder hand going through time travel." Patient has no intentions for suicide or homicide. Per Natasha Robert's note, BEER MERCHANT, the patient is conserved by the state and she is working and finding placement for him. Assessment What has happened this shift: Pt was seen on unit at shift change. Pt was cooperative. Pt was given a new sweater so his could be washed . He was very proud of it and was modling it to his peers and staff. 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 Pt denies SI/HI and AH/VH.Pt is on [facility] conservatorship waiting placement. S/I, H/I: Pt denies. None observed A/VH: Pt denies. None observed Sleep: Currently sleeping comfortably. See sleep notation ADL's: Independent Group attendance: room service clerk, no group Were meds taken: Medication compliant Any med S/E: None reported or observed Mental Status Exam Appearance: Clean, bearded, pt wearing new black shirt Eye contact: Direct Behavior: Pleasant, cooperative, paces hallways Speech: Normal volume, rate and rhythm, poverty of speech Mood: Pleasant Affect: Blunted with brightening Thought process: Linear Thought Content: Poverty of thought, pt responds when spoken to, but does not initiate Cognition: A&O x2 Insight: Poor Judgment: Poor Interventions PRN's used: None Therapeutic interventions: 1:1 assessment at the bedside. Provided therapeutic communication and active listening, medication administration/monitoring/education, reality orientation, Q 15 min checks. Restraints/seclusion/emergency medication: None Justification of Continued Inpatient Treatment: Pt is gravely disabled unable to verbalize a plan for food,clothing and mcfp. Interrupting current crisis and determining placement.
[2018-11-08 07:20] VITALS: BP 138/74
[2018-11-08] MEDS: lactulose 20gm/30ml cup PO SCH ×2 (07:50→21:09)
[2018-11-08] MEDS: lisinopril 10 MG tablet PO SCH (07:51)
--- NOTE | 2018-11-08 12:59 | NUR ---
Nursing Progress Note: Legal hold: LPS conserved Client on involuntary status for GD, psychosis Report received from MACKENZIE Montano with use of SBAR Why are they here: 68 year old male with hx of schizophrenia presents to the ED on a 5150 mental health hold. 5150 was written by a clinician due to the patient being unable to care for himself. Due to the 5150 report that patient was released from [facility] yesterday and attempted to go to his sisters house. It was proved that the patient is unable to provide food, fpc, or clothing for himself and is having grandiose delusions that he is a "gumming machine operator going through time travel." Patient has no intentions for suicide or homicide. Per Natasha Robert's note, PHARMACY CUSTOMER CARE SPECIALIST, the patient is conserved by the state and she is working and finding placement for him. Assessment What has happened this shift: The patient is walking in the hallway at change of shift. Med compliant and eating meals. Denies suicidal thoughts. Also denies any and all types of hallucinations. Will talk to others if specifically asked but otherwise isolative. LPS conserved. S/I, H/I: Pt denies. None observed A/VH: Pt denies. None observed Sleep: None ADL's: Independent Group attendance: None Were meds taken: Medication compliant Any med S/E: None reported or observed Mental Status Exam Appearance: Clean, bearded Eye contact: Direct Behavior: Pleasant, cooperative, paces hallways Speech: Normal volume, rate and rhythm, poverty of speech Mood: Pleasant Affect: Blunted with brightening Thought process: Linear Thought Content: Poverty of thought, pt responds when spoken to, but does not initiate Cognition: A&O x2 Insight: Poor Judgment: Poor Interventions PRN's used: None Therapeutic interventions: 1:1 assessment at the bedside. Provided therapeutic communication and active listening, medication administration/monitoring/education, reality orientation, Q 15 min checks. Restraints/seclusion/emergency medication: None Justification of Continued Inpatient Treatment: Pt is gravely disabled unable to verbalize a plan for food,clothing and fpc. Interrupting current crisis and determining placement.
--- NOTE | 2018-11-08 16:34 | NUR ---
1:1 DISCHARGE PLANNING: ELIDA faxed over all progress and provider notes to [facility] TAD Office for placement search purposes. TAD office is requesting updated notes be sent weekly. Virginie Jensen, [id number]
[2018-11-08 20:21] VITALS: BP 141/71
[2018-11-08] MEDS: risperiDONE 2mg tablet PO SCH (21:09)
[2018-11-08] MEDS: amLODIPine 2.5mg tablet PO SCH (21:09)
--- NOTE | 2018-11-08 22:19 | NUR ---
Nursing Progress Note: Legal hold: LPS conserved Client on involuntary status for GD, psychosis Report received from MACKENZIE Millan with use of SBAR Why are they here: 68 year old male with hx of schizophrenia presents to the ED on a 5150 mental health hold. 5150 was written by a clinician due to the patient being unable to care for himself. Due to the 5150 report that patient was released from [facility] yesterday and attempted to go to his sisters house. It was proved that the patient is unable to provide food, alf, or clothing for himself and is having grandiose delusions that he is a "correspondence clerk going through time travel." Patient has no intentions for suicide or homicide. Per Natasha Robert's note, SUSTAINABILITY COORDINATOR, the patient is conserved by the state and she is working and finding placement for him. Assessment What has happened this shift: The patient is walking in the hallway at change of shift. Med compliant and eating meals. Denies suicidal thoughts. Also denies any and all types of hallucinations. Will talk to others if specifically asked but otherwise isolative. LPS conserved. S/I, H/I: Pt denies. None observed A/VH: Pt denies. None observed Sleep: None ADL's: Independent Group attendance: None Were meds taken: Medication compliant Any med S/E: None reported or observed Mental Status Exam Appearance: Clean, bearded Eye contact: Direct Behavior: Pleasant, cooperative, paces hallways Speech: Normal volume, rate and rhythm, poverty of speech Mood: Pleasant Affect: Blunted with brightening Thought process: Linear Thought Content: Poverty of thought, pt responds when spoken to, but does not initiate Cognition: A&O x2 Insight: Poor Judgment: Poor Interventions PRN's used: None Therapeutic interventions: 1:1 assessment at the bedside. Provided therapeutic communication and active listening, medication administration/monitoring/education, reality orientation, Q 15 min checks. Restraints/seclusion/emergency medication: None Justification of Continued Inpatient Treatment: Pt is gravely disabled unable to verbalize a plan for food,clothing and alf. Interrupting current crisis and determining placement.
[2018-11-09] MEDS: lactulose 20gm/30ml cup PO SCH ×2 (07:22→20:59)
[2018-11-09] MEDS: lisinopril 10 MG tablet PO SCH (07:24)
[2018-11-09 08:00] VITALS: BP 136/74
--- NOTE | 2018-11-09 13:33 | NUR ---
Nursing Progress Note: Legal hold: LPS conserved Client on involuntary status for GD, psychosis Report received from MACKENZIE Montano with use of SBAR Why are they here: 68 year old male with hx of schizophrenia presents to the ED on a 5150 mental health hold. 5150 was written by a clinician due to the patient being unable to care for himself. Due to the 5150 report that patient was released from senior living yesterday and attempted to go to his sisters house. It was proved that the patient is unable to provide food, longterm, or clothing for himself and is having grandiose delusions that he is a "judge clerk going through time travel." Patient has no intentions for suicide or homicide. Per Natasha Robert's note, GRIEVANCE MANAGER, the patient is conserved by the state and she is working and finding placement for him. Assessment What has happened this shift: The patient is walking in the hallway at change of shift. Med compliant and eating meals. Denies suicidal thoughts. Also denies any and all types of hallucinations. Will talk to others if specifically asked but otherwise isolative. LPS conserved. Reported in morning to nurse, "I'm not doing good today", then in early afternoon reported "I feel better and I'm fine now." The patient could not articulate why he felt bad in the morning. He paced the hallway all day, ate meals and listened to music on portable headphones. S/I, H/I: Pt denies. None observed A/VH: Pt denies. None observed Sleep: None ADL's: Independent Group attendance: None Were meds taken: Medication compliant Any med S/E: None reported or observed Mental Status Exam Appearance: Clean, bearded Eye contact: Direct Behavior: Pleasant, cooperative, paces hallways Speech: Normal volume, rate and rhythm, poverty of speech Mood: Pleasant Affect: Blunted with brightening Thought process: Linear Thought Content: Poverty of thought, pt responds when spoken to, but does not initiate Cognition: A&O x2 Insight: Poor Judgment: Poor Interventions PRN's used: None Therapeutic interventions: 1:1 assessment at the bedside. Provided therapeutic communication and active listening, medication administration/monitoring/education, reality orientation, Q 15 min checks. Restraints/seclusion/emergency medication: None Justification of Continued Inpatient Treatment: Pt is gravely disabled unable to verbalize a plan for food,clothing and longterm. Interrupting current crisis and determining placement.
[2018-11-09 20:00] VITALS: BP 120/76
[2018-11-09] MEDS: amLODIPine 2.5mg tablet PO SCH (20:59)
[2018-11-09] MEDS: risperiDONE 2mg tablet PO SCH (20:59)
--- NOTE | 2018-11-10 04:41 | NUR ---
Nursing Progress Note: Legal hold: LPS conserved Client on involuntary status for GD, psychosis Report received from MACKENZIE Singletary with use of SBAR Why are they here: 68 year old male with hx of schizophrenia presents to the ED on a 5150 mental health hold. 5150 was written by a clinician due to the patient being unable to care for himself. Due to the 5150 report that patient was released from senior living yesterday and attempted to go to his sisters house. It was proved that the patient is unable to provide food, halfway, or clothing for himself and is having grandiose delusions that he is a "orchestra leader going through time travel." Patient has no intentions for suicide or homicide. Per Natasha Robert's note, STAFF RESPIRATORY THERAPIST, the patient is conserved by the state and she is working and finding placement for him. Assessment This patient is in his room upon assessment. He is awake, he sits up when this ticket writer enters the room. Patient is oriented to person and year, he has a hard time remembering who the President is but can describe him. This patient denies S/I or H/I. He denies hallucinations. The patient is medication compliant. The patient looks disheveled, he states he will shower in the am. This patient ate his meals. This patient is assured that he is in a safe place. S/I, H/I: Pt denies. None observed A/VH: Pt denies. None observed Sleep: None ADL's: Independent Group attendance: None Were meds taken: Medication compliant Any med S/E: None reported or observed Mental Status Exam Appearance: Clean, bearded Eye contact: Direct Behavior: Pleasant, cooperative, paces hallways Speech: Normal volume, rate and rhythm, poverty of speech Mood: Pleasant Affect: Blunted with brightening Thought process: Linear Thought Content: Poverty of thought, pt responds when spoken to, but does not initiate Cognition: A&O x2 Insight: Poor Judgment: Poor Interventions PRN's used: None Therapeutic interventions: 1:1 assessment at the bedside. Provided therapeutic communication and active listening, medication administration/monitoring/education, reality orientation, Q 15 min checks. Restraints/seclusion/emergency medication: None Justification of Continued Inpatient Treatment: Pt is gravely disabled unable to verbalize a plan for food,clothing and halfway. Interrupting current crisis and determining placement.
[2018-11-10 07:30] VITALS: BP 135/77
[2018-11-10] MEDS: lactulose 20gm/30ml cup PO SCH ×2 (07:36→20:49)
[2018-11-10] MEDS: lisinopril 10 MG tablet PO SCH (07:36)
--- NOTE | 2018-11-10 17:15 | NUR ---
Nursing Progress Note: Legal hold: LPS conserved Client on involuntary status for GD, psychosis Report received from MACKENZIE Montano with use of SBAR Why are they here: 68 year old male with hx of schizophrenia presents to the ED on a 5150 mental health hold. 5150 was written by a clinician due to the patient being unable to care for himself. Due to the 5150 report that patient was released from long term yesterday and attempted to go to his sisters house. It was proved that the patient is unable to provide food, prison, or clothing for himself and is having grandiose delusions that he is a "packing and final assembly supervisor going through time travel." Patient has no intentions for suicide or homicide. Per Natasha Robert's note, FLIPPING MACHINE OPERATOR, the patient is conserved by the state and she is working and finding placement for him. Assessment What happened this shift: Pt. awake at start of shift. Pt. took medications and ate breakfast. 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 Pt. seen pacing hallways. Pt. denies SI/HI, A/V H. Pt. showered today. S/I, H/I: Pt denies A/VH: Pt denies Sleep: 7.75 hours ADL's: Independent. Pt. showered. Group attendance: N Were meds taken: Y Any med S/E: Denies Mental Status Exam Appearance: Clean, bearded Eye contact: Direct Behavior: Pleasant, cooperative, paces hallways Speech: Normal volume, rate and rhythm, poverty of speech Mood: Pleasant Affect: Blunted with brightening Thought process: Linear Thought Content: Poverty of thought, pt responds when spoken to, but does not initiate Cognition: A&O X3. Pt. not oriented to circumstances Insight: Poor Judgment: Poor Interventions PRN's used: None Therapeutic interventions: 1:1 assessment at the bedside. Provided therapeutic communication and active listening, medication administration/monitoring/education, reality orientation, Q 15 min checks. Restraints/seclusion/emergency medication: None Justification of Continued Inpatient Treatment: Pt is gravely disabled unable to verbalize a plan for food,clothing and prison. Interrupting current crisis and determining placement
[2018-11-10 19:00] VITALS: BP 125/69
[2018-11-10] MEDS: amLODIPine 2.5mg tablet PO SCH (20:49)
[2018-11-10] MEDS: risperiDONE 2mg tablet PO SCH (20:49)
--- NOTE | 2018-11-11 01:42 | NUR ---
Nursing Progress Note: Legal hold: LPS conserved Client on involuntary status for GD, psychosis Report received from ABHISHEK Gonzalez with use of SBAR Why are they here: 68 year old male with hx of schizophrenia presents to the ED on a 5150 mental health hold. 5150 was written by a clinician due to the patient being unable to care for himself. Due to the 5150 report that patient was released from [facility] yesterday and attempted to go to his sisters house. It was proved that the patient is unable to provide food, fdc, or clothing for himself and is having grandiose delusions that he is a "county judge going through time travel." Patient has no intentions for suicide or homicide. Per Natasha Robert's note, HEADEND TECHNICIAN, the patient is conserved by the state and she is working and finding placement for him. Assessment What happened this shift: Pt observed pacing the halls at shift change. Pt is cooperative with 1:1 assessment and medication administration. Pt is oriented to person, pt states he is 29 years old. Pt knows [facility] is at a [facility]. Pt states he is a time traveler and has visited space, but returned. S/I, H/I: Pt denies. None observed A/VH: Pt denies. None observed Sleep: Currently sleeping. ADL's: Independent Group attendance: reproduction machine loader, no group. Were meds taken: Medication compliant Any med S/E: None reported or observed Mental Status Exam Appearance: Clean, bearded Eye contact: Direct Behavior: Pleasant, cooperative, paces hallways Speech: Normal volume, rate and rhythm, poverty of speech Mood: Pleasant Affect: Blunted with brightening Thought process: Linear Thought Content: Poverty of thought, pt responds when spoken to, but does not initiate Cognition: A&O x2 Insight: Poor Judgment: Poor Interventions PRN's used: None Therapeutic interventions: 1:1 assessment at the bedside. Provided therapeutic communication and active listening, medication administration/monitoring/education, reality orientation, Q 15 min checks. Restraints/seclusion/emergency medication: None Justification of Continued Inpatient Treatment: Pt is gravely disabled unable to verbalize a plan for food,clothing and fdc. Pt is at baseline and awaiting placement.
[2018-11-11 07:35] VITALS: BP 116/71
[2018-11-11] MEDS: lisinopril 10 MG tablet PO SCH (07:39)
[2018-11-11] MEDS: lactulose 20gm/30ml cup PO SCH ×2 (07:40→20:10)
[2018-11-11 07:47] VITALS: BP 116/71
--- NOTE | 2018-11-11 10:30 | NUR ---
Reassessment: Pt continues meeting nutrient need with documented 100% PO intake. Wt stable with admit. [facility] 11/10. No nutrition diagnosis. Will continue to follow. Recommendations: 1) Continue with regular diet 2) Weekly wt Addendum: 11/11/18 at [address] Amended: Links added.
--- NOTE | 2018-11-11 14:17 | NUR ---
Nursing Progress Note: Legal hold: LPS conserved Client on involuntary status for GD, psychosis Report received from ABHISHEK Calvo with use of SBAR Why are they here: 68 year old male with hx of schizophrenia presents to the ED on a 5150 mental health hold. 5150 was written by a clinician due to the patient being unable to care for himself. Due to the 5150 report that patient was released from senior living yesterday and attempted to go to his sisters house. It was proved that the patient is unable to provide food, prison, or clothing for himself and is having grandiose delusions that he is a "environmental health and safety intern going through time travel." Patient has no intentions for suicide or homicide. Per Natasha Robert's note, HOME CARE MANAGER, the patient is conserved by the state and she is working and finding placement for him. Assessment What happened this shift: Pt observed pacing in the hallway with his hands in his pockets before breakfast. Pt continued to pace in the hallway for much of the rest of the shift. Pt denied feeling anxious or depressed. Pt also denied SI/HI/AH/VH, pt does not appear internally pre-occupied or to be responding to internal stimuli. When asked pt if he slept well he replied, "nah." Pt stated that he woke up feeling "lousy." Pt remains mostly isolative to self. Pt knew what the date was today, he did not make any delusional statements to this RN. No unsafe behaviors noted. S/I, H/I: Pt denies A/VH: Pt denies Sleep: Slept 8 hours per noc shift report, awakens feeling unrested ADL's: Independent Group attendance: yes, pt attended morning group Were meds taken: Yes, just BP med and lactulose in the morning. Any med S/E: None noted or reported Mental Status Exam Appearance: Clean, likes to wear his tate beanie Eye contact: Good Behavior: Pleasant, cooperative, paces hallways, mostly isolates to self Speech: Normal volume, rate and rhythm, poverty of speech Mood: Pleasant Affect: Blunted with brightening when spoken to Thought process: Linear Thought Content: Poverty of thought, pt responds when spoken to, but does not initiate conversation Cognition: A/O X 3, not always oriented to situation, pt makes delusional statements at times though none heard this shift Insight: Poor Judgment: Poor Interventions PRN's used: None Therapeutic interventions: 1:1 assessment, establishment of rapport, therapeutic communication, medication administration/monitoring/education, encouragement to attend groups, Q 15 min checks. Restraints/seclusion/emergency medication: None Justification of Continued Inpatient Treatment: Pt is LPS conserved, he is gravely disabled unable to verbalize a plan for food,clothing and prison. Pt is at baseline and awaiting placement.
[2018-11-11 19:00] VITALS: BP 145/79
[2018-11-11] MEDS: risperiDONE 2mg tablet PO SCH (20:10)
[2018-11-11] MEDS: amLODIPine 2.5mg tablet PO SCH (20:11)
--- NOTE | 2018-11-11 20:53 | NUR ---
Nursing Progress Note: Legal hold: LPS conserved Client on involuntary status for GD, psychosis Report received from Dl MANN (self) with use of SBAR Why are they here: 68 year old male with hx of schizophrenia presents to the ED on a 5150 mental health hold. 5150 was written by a clinician due to the patient being unable to care for himself. Due to the 5150 report that patient was released from residential yesterday and attempted to go to his sisters house. It was proved that the patient is unable to provide food, skilled nursing, or clothing for himself and is having grandiose delusions that he is a "national account representative going through time travel." Patient has no intentions for suicide or homicide. Per Natasha Robert's note, MARINE OPERATIONS COORDINATOR, the patient is conserved by the state and she is working and finding placement for him. Assessment What happened this shift: Pt ate dinner, paced for awhile in the hallway, smiled at staff a couple of times. Pt said his day went well, denied all symptoms, retired to bed early at around 1999. S/I, H/I: Pt denies A/VH: Pt denies Sleep: See sleep assessment notation ADL's: Independent Group attendance: No groups on noc shift Were meds taken: Yes Any med S/E: None noted or reported Mental Status Exam Appearance: Clean, likes to wear his tate beanie Eye contact: Good Behavior: Pleasant, cooperative, paces hallways, mostly isolates to self Speech: Normal volume, rate and rhythm, poverty of speech Mood: Pleasant Affect: Blunted with brightening when spoken to Thought process: Linear Thought Content: Poverty of thought, pt responds when spoken to, but does not initiate conversation Cognition: A/O X 4 Insight: Poor Judgment: Poor Interventions PRN's used: None Therapeutic interventions: 1:1 assessment, therapeutic communication, encouragement to express thoughts and feelings, medication administration/monitoring/education, encouragement to attend groups, Q 15 min checks. Restraints/seclusion/emergency medication: None Justification of Continued Inpatient Treatment: Pt is LPS conserved, he is gravely disabled unable to verbalize a plan for food,clothing and skilled nursing. Pt is at baseline and awaiting placement.
[2018-11-12 07:30] VITALS: BP 129/76
[2018-11-12] MEDS: lisinopril 10 MG tablet PO SCH (07:47)
[2018-11-12] MEDS: lactulose 20gm/30ml cup PO SCH ×2 (07:48→20:25)
--- NOTE | 2018-11-12 17:00 | NUR ---
Nursing Progress Note: Legal hold: LPS conserved Client on involuntary status for GD, psychosis Report received from Sol Potts RN (self) with use of SBAR Why are they here: 68 year old male with hx of schizophrenia presents to the ED on a 5150 mental health hold. 5150 was written by a clinician due to the patient being unable to care for himself. Due to the 5150 report that patient was released from [facility] yesterday and attempted to go to his sisters house. It was proved that the patient is unable to provide food, custodial, or clothing for himself and is having grandiose delusions that he is a "housekeeper home going through time travel." Patient has no intentions for suicide or homicide. Per Natasha Robert's note, SMT MACHINE OPERATOR, the patient is conserved by the state and she is working and finding placement for him. Assessment What happened this shift: Pt. sleeping at start of shift. Pt. ate all meals in community room. Pt. took medications. Pt. pacing back and forth in hallway. 1:1 done at pt.'s bedside. Pt. continues to be delusional about going back to work. Pt. reports his mood is "ok". Pt. reports he did not sleep well last night. Pt. states, "I'll be better when I can get out". Pt ate dinner, paced for awhile in the hallway, smiled at staff a couple of times. Pt said his day went well, denied all symptoms, retired to bed early at around 2000. S/I, H/I: Pt denies A/VH: Pt denies Sleep: See sleep 8.75 hours according to sleep assessment but pt. reports that he did not sleep well. ADL's: Independent Group attendance: Pt. went to groups Were meds taken: Yes Any med S/E: None noted or reported Mental Status Exam Appearance: Clean and unshaven. Pt. encouraged to shower and pt. states that he showered yesterday. Eye contact: Good Behavior: Pleasant, cooperative, paces hallways, mostly isolates to self Speech: Normal volume, rate and rhythm, poverty of speech Mood: Pleasant Affect: Flat but brightens when spoken to Thought process: Linear Thought Content: Poverty of thought Cognition: A/O X 4 Insight: Poor Judgment: Poor Interventions PRN's used: None Therapeutic interventions: 1:1 assessment, therapeutic communication, encouragement to express thoughts and feelings, medication administration/monitoring/education, encouragement to attend groups, Q 15 min checks. Restraints/seclusion/emergency medication: None Justification of Continued Inpatient Treatment: Pt is LPS conserved, he is gravely disabled unable to verbalize a plan for food,clothing and custodial. Pt is at baseline and awaiting placement.
[2018-11-12 20:00] VITALS: BP 131/80
[2018-11-12] MEDS: risperiDONE 2mg tablet PO SCH (20:25)
[2018-11-12] MEDS: amLODIPine 2.5mg tablet PO SCH (20:25)
--- NOTE | 2018-11-13 00:51 | NUR ---
Nursing Progress Note: Legal hold: LPS conserved Client on involuntary status for GD, psychosis Report received from ABHISHEK Gonzalez with use of SBAR Why are they here: 68 year old male with hx of schizophrenia presents to the ED on a 5150 mental health hold. 5150 was written by a clinician due to the patient being unable to care for himself. Due to the 5150 report that patient was released from group home yesterday and attempted to go to his sisters house. It was proved that the patient is unable to provide food, usp, or clothing for himself and is having grandiose delusions that he is a "make up operator helper going through time travel." Patient has no intentions for suicide or homicide. Per Natasha Robert's note, SPECIAL SERVICES AGENT, the patient is conserved by the state and she is working and finding placement for him. Assessment What happened this shift: Pt observed pacing the halls at shift change. Pt is cooperative with 1:1 assessment and medication administration. Pt is oriented to x3. Pt isolates to self. Pt did not make any delusional statements to this nurse. Pt. was given a clean pair of green scrubs for sleeping, suggested to patient this chief underwriter would wash his clothes tonight if he put them in his basket. S/I, H/I: Pt denies. A/VH: Pt denies. Sleep: Currently sleeping. No distress noted. ADL's: Independent. Needs prompting Group attendance: cnc mill operator, no group. Were meds taken: Medication compliant Any med S/E: None reported or observed Mental Status Exam Appearance: Clean, unshaven, wearing own clothes. Eye contact: Good Behavior: Pleasant, cooperative, paces hallways Speech: Normal volume, rate and rhythm, poverty of speech Mood: Pleasant Affect: Blunted with brightening Thought process: Linear Thought Content: Poverty of thought, pt responds when spoken to, but does not initiate Cognition: A&O x3 Insight: Poor Judgment: Poor Interventions PRN's used: None Therapeutic interventions: 1:1 assessment at the bedside. Provided therapeutic communication and active listening, medication administration/monitoring/education, reality orientation, Q 15 min checks. Restraints/seclusion/emergency medication: None Justification of Continued Inpatient Treatment: Pt is gravely disabled unable to verbalize a plan for food,clothing and usp. Pt is at baseline and awaiting placement.
[2018-11-13] MEDS: lactulose 20gm/30ml cup PO SCH ×2 (07:36→20:00)
[2018-11-13] MEDS: lisinopril 10 MG tablet PO SCH (07:39)
[2018-11-13 08:00] VITALS: BP 129/73
--- NOTE | 2018-11-13 13:25 | NUR ---
Nursing Progress Note: Legal hold: LPS conserved Client on involuntary status for GD, psychosis Report received from Sol Potts RN (self) with use of SBAR Why are they here: 68 year old male with hx of schizophrenia presents to the ED on a 5150 mental health hold. 5150 was written by a clinician due to the patient being unable to care for himself. Due to the 5150 report that patient was released from residential yesterday and attempted to go to his sisters house. It was proved that the patient is unable to provide food, mcc, or clothing for himself and is having grandiose delusions that he is a "cadmium liquor maker going through time travel." Patient has no intentions for suicide or homicide. Per Natasha Robert's note, SAFETY INSTRUCTION POLICE OFFICER, the patient is conserved by the state and she is working and finding placement for him. Assessment What happened this shift: Received Pt in bed at change of shift in no distress. Pt attended all meals in group room and ate. Took AM meds w/o issue and was pleasant and cooperative. Pt. Endorses wanting to leave [facility] and feel better. Pt continues to pace the hallways. Will sit with others at times and listen to conversations, or watch tv, but overall he stays to himself. S/I, H/I: Pt denies A/VH: Pt denies Sleep: See sleep 7.75 per NOC shift ADL's: Independent Group attendance: Pt. went to groups Were meds taken: Yes Any med S/E: None noted or reported Mental Status Exam Appearance: Clean and unshaven. Eye contact: Good Behavior: Pleasant, cooperative, paces hallways, mostly isolates to self Speech: Normal volume, rate and rhythm, poverty of speech Mood: Pleasant Affect: Flat but brightens when spoken to Thought process: Linear Thought Content: Poverty of thought Cognition: A/O X 4 Insight: Poor Judgment: Poor Interventions PRN's used: None Therapeutic interventions: 1:1 assessment, therapeutic communication, encouragement to express thoughts and feelings, medication administration/monitoring/education, encouragement to attend groups, Q 15 min checks. Restraints/seclusion/emergency medication: None Justification of Continued Inpatient Treatment: Pt is LPS conserved, he is gravely disabled unable to verbalize a plan for food,clothing and mcc. Pt is at baseline and awaiting placement.
[2018-11-13 19:55] VITALS: BP 131/72
[2018-11-13] MEDS: amLODIPine 2.5mg tablet PO SCH (20:35)
[2018-11-13] MEDS: risperiDONE 2mg tablet PO SCH (20:35)
[2018-11-13] MEDS: LORazepam 1 MG tablet PO PRN (20:38)
--- NOTE | 2018-11-14 00:58 | NUR ---
Nursing Progress Note: Legal hold: LPS conserved Client on involuntary status for GD, psychosis Report received from ABHISHEK Gonzalez with use of SBAR Why are they here: 68 year old male with hx of schizophrenia presents to the ED on a 5150 mental health hold. 5150 was written by a clinician due to the patient being unable to care for himself. Due to the 5150 report that patient was released from [facility] yesterday and attempted to go to his sisters house. It was proved that the patient is unable to provide food, snf, or clothing for himself and is having grandiose delusions that he is a "gastroenterology technician going through time travel." Patient has no intentions for suicide or homicide. Per Natasha Robert's note, MANAGER ELECTRONIC, the patient is conserved by the state and she is working and finding placement for him. Assessment What happened this shift: The patient was in his room at shift change. He was seen at bedside for 1:1. The patient remained in his room all shift looking out the window. He's alert and cooperative with care. He states that he's tired of being here and wants to leave. The patient isolated to himself, took HS meds, then went to bed. He made no delusional statements tonight. S/I, H/I: Pt denies. A/VH: Pt denies. Sleep: Asleep since HS med pass. ADL's: Independent. Sometimes needs prompting. Group attendance: No groups at night. Were meds taken: Yes. Any med S/E: None reported or observed Mental Status Exam Appearance: Disheveled, unshaven, wearing own clothes. Eye contact: Good Behavior: Pleasant, cooperative, isolates. Speech: Normal volume, rate and rhythm, poverty of speech Mood: Pleasant Affect: Blunted. Thought process: Linear. Thought Content: Poverty of thought, pt responds when spoken to, but does not initiate Cognition: A&O x3 Insight: Poor Judgment: Poor Interventions PRN's used: None Therapeutic interventions: 1:1 assessment at the bedside. Provided therapeutic communication and active listening, medication administration/monitoring/education, reality orientation, Q 15 min checks. Restraints/seclusion/emergency medication: None Justification of Continued Inpatient Treatment: Pt is gravely disabled unable to verbalize a plan for food,clothing and snf. Pt is at baseline and awaiting placement.
[2018-11-14] MEDS: lactulose 20gm/30ml cup PO SCH ×2 (07:40→20:00)
[2018-11-14] MEDS: lisinopril 10 MG tablet PO SCH (07:42)
[2018-11-14 07:50] VITALS: BP 125/63
--- NOTE | 2018-11-14 10:33 | NUR ---
1:1 DISCHARGE PLANNING: ELIDA contacted [facility] office and spoke to Lili Brito at [phone], who reports pt has several placement packets being reviewed. Currently no update on potential placement or discharge date. Virginie Jensen, Corrosion Prevention Metal Sprayer HEAD LIBRARIAN [id number] Supervised by Rupesh De La Fuente, [id number]
[2018-11-14] MEDS ORDERED: benztropine 1mg tablet PO ONE (11:35)
[2018-11-14] MEDS: LORazepam 1 MG tablet PO PRN (11:48)
--- NOTE | 2018-11-14 16:34 | NUR ---
Nursing Progress Note: Legal hold: LPS conserved Client on involuntary status for GD, psychosis Report received from Jake MANN with use of SBAR Why are they here: 68 year old male with hx of schizophrenia presents to the ED on a 5150 mental health hold. 5150 was written by a clinician due to the patient being unable to care for himself. Due to the 5150 report that patient was released from assisted yesterday and attempted to go to his sisters house. It was proved that the patient is unable to provide food, senior care, or clothing for himself and is having grandiose delusions that he is a "research assoc going through time travel." Patient has no intentions for suicide or homicide. Per Natasha Robert's note, HOSPICE EDUCATOR, the patient is conserved by the state and she is working and finding placement for him. Assessment What happened this shift: Pt. sleeping at begninng of shift. Pt. took medications and ate all meals in community room. Pt. seen pacing in the hallways. Pt. went into room, when RN checked on pt., pt. was seen shaking his head back and forth, pt. states, "I feel movement in my body". RN recieved order for Cogentin 1mg po but pt. refused stating, "It makes me feel itchy". RN informed provider and gave pt. Ativan 1mg po instead. Pt. attended morning group but did not S/I, H/I: Pt denies A/VH: Pt denies Sleep: See sleep 7.50 hours ADL's: Independent Group attendance: Pt. went to morning group but not afternoon group. Were meds taken: Yes Any med S/E: None noted or reported Mental Status Exam Appearance: Clean and unshaven. Eye contact: Good Behavior: Pleasant, cooperative, paces hallways, mostly isolates to self Speech: Normal volume, rate and rhythm, poverty of speech Mood: Pleasant Affect: Flat but brightens when spoken to Thought process: Linear Thought Content: Poverty of thought Cognition: A/O X 4 Insight: Poor Judgment: Poor Interventions PRN's used: None Therapeutic interventions: 1:1 assessment, therapeutic communication, encouragement to express thoughts and feelings, medication administration/monitoring/education, encouragement to attend groups, Q 15 min checks. Restraints/seclusion/emergency medication: None Justification of Continued Inpatient Treatment: Pt is LPS conserved, he is gravely disabled unable to verbalize a plan for food,clothing and senior care. Pt is at baseline and awaiting placement.
[2018-11-14 20:00] VITALS: BP 122/71
[2018-11-14] MEDS: amLODIPine 2.5mg tablet PO SCH (20:26)
[2018-11-14] MEDS: risperiDONE 2mg tablet PO SCH (20:26)
--- NOTE | 2018-11-15 01:40 | NUR ---
Nursing Progress Note: Legal hold: LPS conserved Client on involuntary status for GD, psychosis Report received from ABHISHEK Gonzalez with use of SBAR Why are they here: 68 year old male with hx of schizophrenia presents to the ED on a 5150 mental health hold. 5150 was written by a clinician due to the patient being unable to care for himself. Due to the 5150 report that patient was released from detention yesterday and attempted to go to his sisters house. It was proved that the patient is unable to provide food, penitentiary, or clothing for himself and is having grandiose delusions that he is a "youth court judge going through time travel." Patient has no intentions for suicide or homicide. Per Natasha Robert's note, TERRAZZO WORKER HELPER, the patient is conserved by the state and she is working and finding placement for him. Assessment What happened this shift: The patient was seen at bedside for 1:1. At the start of shift, he was pacing the halls, then he went to his room and lay down. Sometimes he can be seen moving his legs like a bicycle, others, he will lay there and shake his head. He claims he does this because he can feel things moving in his body. The patient cooperates, he takes his meds, does his ADLs with some prompting, and keeps to himself. He just wants to go somewhere else. The patient will answer questions, but does not initiate conversation. He says as little as possible. S/I, H/I: Pt denies. A/VH: Pt denies. Sleep: Asleep since HS med pass. ADL's: Independent. Sometimes needs prompting. Group attendance: No groups at night. Were meds taken: Yes. Any med S/E: None reported or observed Mental Status Exam Appearance: Disheveled, unshaven, wearing own clothes with a Beanie. Eye contact: Good Behavior: Pleasant, cooperative, isolates. Speech: Normal volume, rate and rhythm, poverty of speech Mood: Pleasant Affect: Blunted. Thought process: Linear. Thought Content: Poverty of thought, pt responds when spoken to, but does not initiate Cognition: A&O. Insight: Poor Judgment: Poor Interventions PRN's used: None Therapeutic interventions: 1:1 assessment at the bedside. Provided therapeutic communication and active listening, medication administration/monitoring/education, reality orientation, Q 15 min checks. Restraints/seclusion/emergency medication: None Justification of Continued Inpatient Treatment: Pt is gravely disabled unable to verbalize a plan for food,clothing and penitentiary. Pt is at baseline and awaiting placement.
[2018-11-15 07:30] VITALS: BP 130/80
[2018-11-15] MEDS: lisinopril 10 MG tablet PO SCH (07:41)
[2018-11-15] MEDS: lactulose 20gm/30ml cup PO SCH ×2 (07:41→20:00)
[2018-11-15] MEDS: LORazepam 1 MG tablet PO PRN (12:22)
--- NOTE | 2018-11-15 17:15 | NUR ---
Nursing Progress Note: Legal hold: LPS conserved Client on involuntary status for GD, psychosis Report received from ABHISHEK Montano with use of SBAR Why are they here: 68 year old male with hx of schizophrenia presents to the ED on a 5150 mental health hold. 5150 was written by a clinician due to the patient being unable to care for himself. Due to the 5150 report that patient was released from detention yesterday and attempted to go to his sisters house. It was proved that the patient is unable to provide food, fci, or clothing for himself and is having grandiose delusions that he is a "[place] administrative law judge going through time travel." Patient has no intentions for suicide or homicide. Per Natasha Robert's note, PRODUCTION LINE, the patient is conserved by the state and she is working and finding placement for him. Assessment What happened this shift: Pt. sleeping at start of shift. Pt. up before breakfast and pacing the unit. Pt. took medications and ate all meals in the community room. 1:1 done at bedside, pt. states, "I'm terrible, I want to get out of here." Pt. seen shaking head and continues to c/o restlessness. Pt. given ativan 1mg po with good effect. Pt. went to all groups. Pt. talks on when directly approached. S/I, H/I: Pt denies. A/VH: Pt denies. Sleep: 7.25 ADL's: Independent. Pt. needs prompting and encouraged to shower, pt. states, "I will later tonight" Group attendance: Pt. attended morning and afternoon groups. Were meds taken: Yes. Any med S/E: None reported or observed Mental Status Exam Appearance: Disheveled, unshaven, wearing own clothes with a Beanie. Eye contact: Good Behavior: Pleasant, cooperative, isolates. Speech: Normal volume, rate and rhythm, poverty of speech Mood: Pleasant but pt. states, "I'm doing terrible, I want to get out of here". Affect: Blunted. Thought process: Linear. Thought Content: Poverty of thought, pt responds when spoken to, but does not initiate Cognition: A&OX3 Insight: Poor Judgment: Poor Interventions PRN's used: Ativan 1mg po Therapeutic interventions: 1:1 assessment at the bedside. Provided therapeutic communication and active listening, medication administration/monitoring/education, reality orientation, Q 15 min checks. Restraints/seclusion/emergency medication: None Justification of Continued Inpatient Treatment: Pt is gravely disabled unable to verbalize a plan for food,clothing and fci. Pt is at baseline and awaiting placement.
[2018-11-15 20:00] VITALS: BP 108/87
[2018-11-15] MEDS: risperiDONE 2mg tablet PO SCH (20:18)
[2018-11-15] MEDS: amLODIPine 2.5mg tablet PO SCH (20:18)
--- NOTE | 2018-11-15 23:00 | NUR ---
Nursing Progress Note: Legal hold: LPS conserved Client on involuntary status for GD, psychosis Report received from ABHISHEK Gonzalez with use of SBAR Why are they here: 68 year old male with hx of schizophrenia presents to the ED on a 5150 mental health hold. 5150 was written by a clinician due to the patient being unable to care for himself. Due to the 5150 report that patient was released from residential yesterday and attempted to go to his sisters house. It was proved that the patient is unable to provide food, chcf, or clothing for himself and is having grandiose delusions that he is a "tonal regulator going through time travel." Patient has no intentions for suicide or homicide. Per Natasha Robert's note, CURRICULUM DEVELOPER, the patient is conserved by the state and she is working and finding placement for him. Assessment: What happened this shift: The patient was pacing the halls at shift change. as I walked down the [address] and greeted the patient, he said nothing. He usually says hi back. The patient continued pacing, then went in his room and lay down. His room was later entered for 1:1, but the patient refused to talk. he later came to group room for snacks, but spoke to nobody. He did take his medicine without issue, then went to bed, where he remains at this time. S/I, H/I: Pt denies. A/VH: Pt denies. Sleep: Asleep since HS med pass. ADL's: Independent. Sometimes needs prompting. Group attendance: No groups at night. Were meds taken: Yes. Any med S/E: None reported or observed Mental Status Exam Appearance: Disheveled, unshaven, wearing own clothes with a Beanie. Eye contact: Poor Behavior: Pleasant, resistive, isolates. Speech: Normal volume, rate and rhythm, poverty of speech Mood: Pleasant Affect: Blunted. Thought process: Disorganized. Thought Content: Poverty of thought, pt responds when spoken to, but does not initiate Cognition: A&O. Insight: Poor Judgment: Poor Interventions PRN's used: None Therapeutic interventions: 1:1 assessment at the bedside. Provided therapeutic communication and active listening, medication administration/monitoring/education, reality orientation, Q 15 min checks. Restraints/seclusion/emergency medication: None Justification of Continued Inpatient Treatment: Pt is gravely disabled unable to verbalize a plan for food,clothing and chcf. Pt is at baseline and awaiting placement.
[2018-11-16 07:46] VITALS: BP 124/74
[2018-11-16] MEDS: lisinopril 10 MG tablet PO SCH (08:06)
[2018-11-16] MEDS: lactulose 20gm/30ml cup PO SCH ×2 (08:06→20:26)
--- NOTE | 2018-11-16 11:39 | NUR ---
Collateral Information: [facility] she informed that [facility] paperwork was filled yesterday, 11/15/2018, and they are hoping to have the papers signed tomorrow, Wednesday at the latest. TAN Graf Addendum: 11/16/18 at 1153 by Lili Samson SS Error, above note was not intended for this patient. Note was enter properly for the intended patient. TAN Graf
--- NOTE | 2018-11-16 13:22 | NUR ---
Discharge Planning: Faxed RN and doctors for the dates of 11/08/2018 through 11/16/2018, along w/ a not requesting the mental health specialist reviewing the pt't pkt for placement to phone out case packer and sealer, Herlinda Patel w/ her contact info. to discuss pt in detail and answer any questions. Also phoned [facility] office and spoke w/Katrina to confirm receipt of faxes and to highlight 's detailed notes of pt's Dx and appropriateness of placement to an IMD. Katrina confirmed they had received the faxes and acknowledgment of the doctors notes. Lili Samson, ACSW
--- NOTE | 2018-11-16 14:00 | NUR ---
Group Art Therapy (11/16/18) Continued: Patient was able to participate in today's group art therapy and journaling activity. He drawing was primitive, yet significant in that he was able to follow all directives and did interact and share during the group process. He was responsive to talking, although it was hard to understand at times. He wrote: "I am letting go of the past that would held me back of things that are important." Татьяна Schmitz MA, POTATO SPOTTER #[id number] [facility] Art Therapist Addendum: 11/17/18 at 0941 by Татьяна Schmitz SS Amended: Links added.
[2018-11-16] MEDS: LORazepam 1 MG tablet PO PRN (16:42)
--- NOTE | 2018-11-16 17:44 | NUR ---
Nursing Progress Note: Legal hold: LPS conserved Client on involuntary status for GD, psychosis Report received from ABHISHEK Montano with use of SBAR Why are they here: 68 year old male with hx of schizophrenia presents to the ED on a 5150 mental health hold. 5150 was written by a clinician due to the patient being unable to care for himself. Due to the 5150 report that patient was released from [facility] yesterday and attempted to go to his sisters house. It was proved that the patient is unable to provide food, jail, or clothing for himself and is having grandiose delusions that he is a "paddock judge going through time travel." Patient has no intentions for suicide or homicide. Per Natasha Robert's note, SOCIAL MEDIA MANAGER, the patient is conserved by the state and she is working and finding placement for him. Assessment: What happened this shift: Pt. sleeping at start of shift. Pt. up before breakfast and pacing the unit. Pt. took medications and ate all meals in the community room. 1:1 done at bedside, pt. states."I'm good, I just want to get out of here" Pt. requested ativan prn for restlessness and given 1mg po with good effect. Pt. went to all groups. Pt. reportedly participated well in group stating, "I'm moving ahead and not letting the past trouble me". Pt. paces the unit and talks when directly approached. S/I, H/I: Pt denies. A/VH: Pt denies. Sleep: 6.5 hrs ADL's: Independent. Pt. needs promting. says he will take a shower tomorrow morning. Group attendance: No groups at night. Were meds taken: Yes. Any med S/E: None reported or observed Mental Status Exam Appearance: Disheveled, unshaven, wearing own clothes with a Beanie. Eye contact: Poor Behavior: Pleasant, isolative. Speech: Normal volume, rate and rhythm, poverty of speech Mood: Pleasant Affect: Blunted. Thought process: Disorganized. Thought Content: Poverty of thought, pt responds when spoken to, but does not initiate Cognition: A&Ox 2. Insight: Poor Judgment: Poor Interventions PRN's used: None Therapeutic interventions: 1:1 assessment at the bedside. Provided therapeutic communication and active listening, medication administration/monitoring/education, reality orientation, Q 15 min checks. Restraints/seclusion/emergency medication: None Justification of Continued Inpatient Treatment: Pt is gravely disabled unable to verbalize a plan for food,clothing and jail. Pt is at baseline and awaiting placement.
[2018-11-16 20:00] VITALS: BP 138/75
[2018-11-16] MEDS: amLODIPine 2.5mg tablet PO SCH (20:26)
[2018-11-16] MEDS: risperiDONE 2mg tablet PO SCH (20:26)
--- NOTE | 2018-11-17 01:14 | NUR ---
Nursing Progress Note: Legal hold: LPS conserved Client on involuntary status for GD, psychosis Report received from MACKENZIE Singletary with use of SBAR Why are they here: 68 year old male with hx of schizophrenia presents to the ED on a 5150 mental health hold. 5150 was written by a clinician due to the patient being unable to care for himself. Due to the 5150 report that patient was released from care home yesterday and attempted to go to his sisters house. It was proved that the patient is unable to provide food, senior care, or clothing for himself and is having grandiose delusions that he is a "electronics repair technician going through time travel." Patient has no intentions for suicide or homicide. Per Natasha Robert's note, FIELD NURSE, the patient is conserved by the state and she is working and finding placement for him. Assessment: What happened this shift: Patient pacing the halls listening to headphones at the change of shift. He is agreeable to a 1:1 assessment at his bedside. He states that he and his mood are "good". He does express that he is bored here. When asked about taking a shower this evening he states "I'll shower in the morning." He spends some time in the group room this evening, before going to bed. He is complaint with all his evening medications. S/I, H/I: Denies A/VH: Denies Sleep: Currently sleeping, see sleep assessment ADL's: Independent. Pt. needs prompting. Says he will take a shower tomorrow morning. Group attendance: No groups at night. Were meds taken: Yes Any med S/E: None reported or observed Mental Status Exam Appearance: Disheveled, unshaven, wearing own clothes with a Beanie. Eye contact: Poor Behavior: Pleasant, paces [address] listening to music Speech: Normal volume, rate and rhythm, poverty of speech Mood: Pleasant Affect: Blunted. Thought process: Bored, trying to keep self busy with music Thought Content: Poverty of thought, pt responds when spoken to, but does not initiate Cognition: A&Ox 2. Insight: Poor Judgment: Poor Interventions PRN's used: None Therapeutic interventions: 1:1 assessment at the bedside. Provided therapeutic communication and active listening, medication administration/monitoring/education, reality orientation, Q 15 min checks. Restraints/seclusion/emergency medication: None Justification of Continued Inpatient Treatment: Pt is gravely disabled unable to verbalize a plan for food,clothing and senior care. Pt is at baseline and awaiting placement.
[2018-11-17] MEDS: lisinopril 10 MG tablet PO SCH (07:40)
[2018-11-17] MEDS: lactulose 20gm/30ml cup PO SCH ×2 (07:40→20:38)
[2018-11-17 07:41] VITALS: BP 123/66
--- NOTE | 2018-11-17 11:03 | NUR ---
Reassessment: Pt continues meeting nutrient need with documented 100% PO intake. LBM 11/16 receiving lactulose for prior etoh hx w/ elevated ammonia per MD note. MD declines thiamin/folic/MVI at this time given good PO. NATHALY d/w RN for antihyperlipidemic per MD approval given TG 186 on admit. No other nutrition concerns at this time. Will continue to follow. Recommendations: 1) Continue with regular diet 2) antihyperlipidemic per MD approval for TG 186 3) Weekly wts Addendum: 11/17/18 at [address] Amended: Links added.
[2018-11-17 20:00] VITALS: BP 141/78
[2018-11-17] MEDS: risperiDONE 2mg tablet PO SCH (20:38)
[2018-11-17] MEDS: amLODIPine 2.5mg tablet PO SCH (20:38)
[2018-11-17] MEDS: LORazepam 1 MG tablet PO PRN (20:40)
--- NOTE | 2018-11-18 02:11 | NUR ---
Nursing Progress Note: Legal hold: LPS conserved Client on involuntary status for GD, psychosis Report received from MACKENZIE Singletary with use of SBAR Why are they here: 68 year old male with hx of schizophrenia presents to the ED on a 5150 mental health hold. 5150 was written by a clinician due to the patient being unable to care for himself. Due to the 5150 report that patient was released from prison [facility] and attempted to go to his sisters house. It was proved that the patient is unable to provide food, chcf, or clothing for himself and is having grandiose delusions that he is a "cupola charger going through time travel." Patient has no intentions for suicide or homicide. Per Natasha Robert's note, CADMIUM PLATER, the patient is conserved by the state and she is working and finding placement for him. Assessment: What happened this shift: Patient pacing the halls listening to headphones at the change of shift. He states his day was "lousy" when ask why he states "It was just lousy." He described is mood as "regular" and that he is getting "bored". Patient paces the [address] listening to music during this shift, he attends evening snack time and then goes back to his room. He is noted to have spend some time having a back and forth conversation with his roommate before going to bed. He is compliant with all his evening medications. S/I, H/I: Denies A/VH: Denies Sleep: Currently sleeping, see sleep assessment ADL's: Independent. Pt. needs prompting. Showered today. Group attendance: No groups at night. Were meds taken: Yes Any med S/E: None reported or observed Mental Status Exam Appearance: Clean, clean clothes, wearing a beanie Eye contact: Poor Behavior: Pleasant, paces [address] listening to music Speech: Normal volume, rate and rhythm, poverty of speech Mood: Pleasant Affect: Blunted. Thought process: Bored, trying to keep self busy with music Thought Content: Poverty of thought, is starting to communicate more Cognition: A&Ox 2. Insight: Poor Judgment: Poor Interventions PRN's used: Ativan x1 Therapeutic interventions: 1:1 assessment at the bedside. Provided therapeutic communication and active listening, medication administration/monitoring/education, reality orientation, Q 15 min checks. Restraints/seclusion/emergency medication: None Justification of Continued Inpatient Treatment: Pt is gravely disabled unable to verbalize a plan for food,clothing and chcf. Pt is at baseline and awaiting placement.
[2018-11-18 08:00] VITALS: BP 133/71
[2018-11-18] MEDS: lactulose 20gm/30ml cup PO SCH ×2 (08:02→20:44)
[2018-11-18] MEDS: lisinopril 10 MG tablet PO SCH (08:03)
--- NOTE | 2018-11-18 14:01 | NUR ---
Nursing Progress Note: Legal hold: LPS conserved Client on involuntary status for GD, psychosis Report received from Sol Potts RN with use of SBAR Why are they here: 68 year old male with hx of schizophrenia presents to the ED on a 5150 mental health hold. 5150 was written by a clinician due to the patient being unable to care for himself. Due to the 5150 report that patient was released from [facility] yesterday and attempted to go to his sisters house. It was proved that the patient is unable to provide food, long term, or clothing for himself and is having grandiose delusions that he is a "data communications engineer going through time travel." Patient has no intentions for suicide or homicide. Per Natasha Robert's note, WIND UP OPERATOR, the patient is conserved by the state and she is working and finding placement for him. Assessment: What happened this shift: Pt denied depression, anxiety, SI/HI/AH/VH. Pt paces in the halls the majority of the day, oftentimes wearing music headphones and listening to rock. Pt attends groups though sits in the back of the room observing, passively participates. Pt is pleasant and cooperative with unit procedures and medications. Asked pt if he was anxious or curious about where he will be going from here. Pt stated that yes he was curious and wished to know if he would be able to smoke. Reminded pt that it had been many weeks since he had smoked and encouraged him to quit. Pt indicated that he intends to smoke again as soon as he is able. No delusional statements to this RN this shift. S/I, H/I: Pt denies A/VH: Pt denies Sleep: Slept 8.25 hours per noc shift report ADL's: Independent, showers with prompting. Group attendance: Yes Were meds taken: Yes though only takes Lactulose and Zestril on day shift. Any med S/E: None reported or observed Mental Status Exam Appearance: Clean, bearded, wears a beanie Eye contact: Fair Behavior: Cooperative, paces in hallway, frequently listens to music headphones. Speech: Clear, audible,poverty of speech Mood: Pleasant Affect: Blunted Thought process: linear Thought Content: Wants to smoke, poverty of thought Cognition: A/O X 3 Insight: Poor Judgment: Poor Interventions PRN's used: None Therapeutic interventions: 1:1 assessment, therapeutic conversation, active listening, encouraged pt to express his thoughts and feelings, medication administration/monitoring/education, Q 15 min checks. Restraints/seclusion/emergency medication: None Justification of Continued Inpatient Treatment: Pt is gravely disabled unable to verbalize a plan for food,clothing and long term. Pt is at baseline and awaiting placement.
[2018-11-18 20:00] VITALS: BP 120/65
[2018-11-18] MEDS: amLODIPine 2.5mg tablet PO SCH (20:45)
[2018-11-18] MEDS: risperiDONE 2mg tablet PO SCH (20:45)
[2018-11-18] MEDS: LORazepam 1 MG tablet PO PRN (20:50)
--- NOTE | 2018-11-19 01:35 | NUR ---
Nursing Progress Note: Legal hold: LPS conserved Client on involuntary status for GD, psychosis Report received from ABHISHEK Millan with use of SBAR Why are they here: 68 year old male with hx of schizophrenia presents to the ED on a 5150 mental health hold. 5150 was written by a clinician due to the patient being unable to care for himself. Due to the 5150 report that patient was released from [facility] yesterday and attempted to go to his sisters house. It was proved that the patient is unable to provide food, mcfp, or clothing for himself and is having grandiose delusions that he is a "green prize packer going through time travel." Patient has no intentions for suicide or homicide. Per Natasha Robert's note, PRODUCT MGMT DEV MANAGER, the patient is conserved by the state and she is working and finding placement for him. Assessment: What happened this shift: Pt was visible on unit, seen pacing the halls at shift change. Pt states he had a good day and continues to pace. Pt. isolates to self, will engage in a conversation if prompted. Pt is observed laying on his bed talking to himself. Pt is medication compliant and cooperative for the 1:1 assessment. Pt requested an Ativan with his HS meds, when asked what his anxiety level is pt states "I don't know, I just want to sleep." Pt did participate in HS snack, then retired to his room. S/I, H/I: None reported or observed A/VH: None reported or observed Sleep: Currently sleeping, will continue to monitor. ADL's: Independent. Pt. needs prompting. Group attendance: mini shifter, no group Were meds taken: Medication compliant Any med S/E: None reported or observed Mental Status Exam Appearance: Clean, wearing street clothes and a beanie Eye contact: Fair Behavior: Pleasant, paces the halls Speech: Clear, poverty of speech Mood: Pleasant Affect: Blunted, with some brightening Thought process: Bored, trying to keep self busy with music Thought Content: Poverty of thought, will engage if spoken to first Cognition: A&Ox 2. Insight: Poor Judgment: Poor Interventions PRN's used: Ativan x1 Therapeutic interventions: 1:1 assessment at the bedside. Provided therapeutic communication and active listening, medication administration/monitoring/education, reality orientation, Q 15 min checks. Restraints/seclusion/emergency medication: None Justification of Continued Inpatient Treatment: Pt is gravely disabled unable to verbalize a plan for food,clothing and mcfp. Pt is at baseline and awaiting placement.
[2018-11-19] MEDS: lactulose 20gm/30ml cup PO SCH ×2 (07:47→21:02)
[2018-11-19] MEDS: lisinopril 10 MG tablet PO SCH (07:48)
[2018-11-19 07:53] VITALS: BP 114/75
[2018-11-19 07:55] VITALS: BP 114/75
--- NOTE | 2018-11-19 14:20 | NUR ---
Nursing Progress Note: Legal hold: LPS conserved Client on involuntary status for GD, psychosis Report received from Sol Potts RN with use of SBAR Why are they here: 68 year old male with hx of schizophrenia presents to the ED on a 5150 mental health hold. 5150 was written by a clinician due to the patient being unable to care for himself. Due to the 5150 report that patient was released from [facility] yesterday and attempted to go to his sisters house. It was proved that the patient is unable to provide food, half-way, or clothing for himself and is having grandiose delusions that he is a "judge clerk going through time travel." Patient has no intentions for suicide or homicide. Per Natasha Robert's note, CAFE WORKER, the patient is conserved by the state and she is working and finding placement for him. Assessment: What happened this shift: Pt denies depression, anxiety, SI/HI/AH/VH. Asked pt what was on his mind today and he replied, "gettin' out of here and smokin' a cigarette." Pt stated that it had been so long since he smoked a cigarette that it would probably make him sick. Again suggested that maybe he should just quit smoking altogether. Pt stated that maybe he would smoke a cigar instead. Pt also stated that he lost his favorite socks, he said that he hung them on his night stand last night before bed and they were gone in the morning, stated the were plain white socks and that his roommate wouldn't take them. Searched for socks in his room and the laundry room, notified finished goods inspector to keep an eye out for some plain white socks. S/I, H/I: Pt denies A/VH: Pt denies Sleep: Slept 9 hours per noc shift report ADL's: Independent, showers with prompting. Group attendance: Yes Were meds taken: Yes though only takes Lactulose and Zestril on day shift. Any med S/E: None reported or observed Mental Status Exam Appearance: Clean, bearded, wearing a red polo shirt, tate pants and a tate beanie Eye contact: Fair Behavior: Cooperative, paces up and down the hallway with his hands in his pockets Speech: Clear, audible,poverty of speech Mood: Pleasant Affect: Blunted Thought process: linear Thought Content: Wants to get out of here and smoke, wonders where his favorite pair of white socks went Cognition: A/O X 3, did know it was October but guessed it was the . Insight: Poor Judgment: Fair Interventions PRN's used: None Therapeutic interventions: 1:1 assessment, therapeutic conversation, active listening, encouraged pt to express his thoughts and feelings, medication administration/monitoring/education, Q 15 min checks. Restraints/seclusion/emergency medication: None Justification of Continued Inpatient Treatment: Pt is gravely disabled unable to verbalize a plan for food,clothing and half-way. Pt is at baseline and awaiting placement.
[2018-11-19 20:00] VITALS: BP 133/76
[2018-11-19] MEDS: amLODIPine 2.5mg tablet PO SCH (21:02)
[2018-11-19] MEDS: risperiDONE 2mg tablet PO SCH (21:02)
[2018-11-19] MEDS: LORazepam 1 MG tablet PO PRN (21:17)
--- NOTE | 2018-11-19 23:28 | NUR ---
Nursing Progress Note: Legal hold: LPS conserved Client on involuntary status for GD, psychosis Report received from ABHISHEK Millan with use of SBAR Why are they here: 68 year old male with hx of schizophrenia presents to the ED on a 5150 mental health hold. 5150 was written by a clinician due to the patient being unable to care for himself. Due to the 5150 report that patient was [facility] [place] [facility] yesterday and attempted to go to his sisters house. It was proved that the patient is unable to provide food, detention, or clothing for himself and is having grandiose delusions that he is a "judge going through time travel." Patient has no intentions for suicide or homicide. Per Natasha Robert's note, FLEXBOARD OPERATOR, the patient is conserved by the state and she is working and finding placement for him. Assessment: What happened this shift: Pt walks the unit keeping to himself. He is not seen engaging with any peers or staff unless they address him directly. Pt is pleasant on approach and cooperative with 1:1 assessment. When asked how his day went he replies, "its really boring around here." Pt said he went outside today and it was "good." He states smiling, that he found his favorite white pair of socks. he requests an Ativan at HS medication pass to help him sleep. Ativan 1mg PO PRN was given. S/I, H/I: "no" A/VH: "no" Sleep: see sleep assessment notation ADL's: Independent. Pt. needs prompting. Group attendance: assistant shift supervisor, no group Were meds taken: Medication compliant Any med S/E: None reported or observed Mental Status Exam Appearance: Clean, wearing street clothes and a beanie Eye contact: Fair Behavior: Pleasant, paces the halls Speech: Clear, poverty of speech Mood: Pleasant Affect: Blunted, with some brightening Thought process: Bored, trying to keep self busy with music Thought Content: Poverty of thought, will engage if spoken to first Cognition: A&Ox 2. Insight: Poor Judgment: Poor Interventions PRN's used: Ativan x1 Therapeutic interventions: 1:1 assessment at the bedside. Provided therapeutic communication and active listening, medication administration/monitoring/education, reality orientation, Q 15 min checks. Restraints/seclusion/emergency medication: None Justification of Continued Inpatient Treatment: Pt is gravely disabled unable to verbalize a plan for food,clothing and detention. Pt is at baseline and awaiting placement.
[2018-11-20 07:36] VITALS: BP 120/69
[2018-11-20] MEDS: lisinopril 10 MG tablet PO SCH (08:08)
[2018-11-20] MEDS: lactulose 20gm/30ml cup PO SCH ×2 (08:08→20:27)
--- NOTE | 2018-11-20 11:46 | NUR ---
Nursing Progress Note: Legal hold: LPS conserved Client on involuntary status for GD, psychosis Report received from Sol Potts RN with use of SBAR Why are they here: 68 year old male with hx of schizophrenia presents to the ED on a 5150 mental health hold. 5150 was written by a clinician due to the patient being unable to care for himself. Due to the 5150 report that patient was released from long term yesterday and attempted to go to his sisters house. It was proved that the patient is unable to provide food, custodial, or clothing for himself and is having grandiose delusions that he is a "stock roller going through time travel." Patient has no intentions for suicide or homicide. Per Natasha Robert's note, REVOLVING FIELD ASSEMBLER, the patient is conserved by the state and she is working and finding placement for him. Assessment: What happened this shift: Pt initially denied depression when asked this morning but then said, "depression, because I'm still here." Pt rated his depression at a 5/10, denied SI/HI/AH/VH or anxiety. Observed pt walking up and down the hallway listening to classic [employer] on music headphones loudly, several times he would also fart loudly seemingly in rhythm with the music, pt chuckled to himself the last time observed doing this. Asked pt if he felt like the twice daily lactulose was too much for him, causing him to go too frequently, he replied, "no, it's alright." No delusional statements made by pt today, no unsafe behaviors noted. S/I, H/I: Pt denies A/VH: Pt denies Sleep: Slept 7 hours per noc shift report ADL's: Independent, showers with prompting. Group attendance: Pt did not attend am group today Were meds taken: Yes though only takes Lactulose and Zestril on day shift. Any med S/E: Flatulence from Lactulose, no adverse effects reported or observed from psych meds. Mental Status Exam Appearance: Clean, bearded, wearing a red polo shirt, tate pants and a tate beanie Eye contact: Fair Behavior: Cooperative, paces, mostly isolative to self, pleasant and cooperative Speech: Clear, audible,poverty of speech Mood: Depressed Affect: Blunted Thought process: linear Thought Content: Pt feeling down as placement has not been found for him yet. Cognition: A/O X 3 Insight: Poor Judgment: Fair Interventions PRN's used: None Therapeutic interventions: 1:1 assessment, therapeutic conversation, active listening, encouraged pt to express his thoughts and feelings, medication administration/monitoring/education, encouragement to attend groups, encouragement to shower, Q 15 min checks. Restraints/seclusion/emergency medication: None Justification of Continued Inpatient Treatment: Pt is gravely disabled unable to verbalize a plan for food,clothing and custodial. Pt is at baseline and awaiting placement.
[2018-11-20] MEDS: LORazepam 1 MG tablet PO PRN (19:41)
[2018-11-20 19:55] VITALS: BP 146/80
[2018-11-20] MEDS: amLODIPine 2.5mg tablet PO SCH (20:27)
[2018-11-20] MEDS: risperiDONE 2mg tablet PO SCH (20:27)
--- NOTE | 2018-11-21 00:20 | NUR ---
Nursing Progress Note: Legal hold: LPS conserved Client on involuntary status for GD, psychosis Report received from ABHISHEK Millan with use of SBAR Why are they here: 68 year old male with hx of schizophrenia presents to the ED on a 5150 mental health hold. 5150 was written by a clinician due to the patient being unable to care for himself. Due to the 5150 report that patient was released from nursing home yesterday and attempted to go to his sisters house. It was proved that the patient is unable to provide food, detention, or clothing for himself and is having grandiose delusions that he is a "captain waiter/waitress going through time travel." Patient has no intentions for suicide or homicide. Per Natasha Robert's note, GERONTOLOGY AIDE, the patient is conserved by the state and she is working and finding placement for him. Assessment: What happened this shift: Pt walks the unit during the evening, smiling and keeping to himself. He requests an Ativan when he lays down for bed, pt was given 1mg ativan PO. Pt denies SI/HI/AH/VH. Pt is cooperative with 1:1 assessment, and medication compliant. When asked how his day was he replied, "good." When asked how he has been sleeping he replies, "good." He is pleasant and answers questions but does not expand on any point. S/I, H/I: "no" A/VH: "no" Sleep: see sleep assessment notation ADL's: Independent. Pt. needs prompting. Group attendance: business performance manager, no group Were meds taken: Medication compliant Any med S/E: None reported or observed Mental Status Exam Appearance: Clean, wearing street clothes and a beanie Eye contact: Fair Behavior: Pleasant, paces the halls Speech: Clear, poverty of speech Mood: Pleasant Affect: Blunted, with some brightening Thought process: Bored, trying to keep self busy with music Thought Content: Poverty of thought, will engage if spoken to first Cognition: A&Ox 2. Insight: Poor Judgment: Poor Interventions PRN's used: Ativan x1 Therapeutic interventions: 1:1 assessment at the bedside. Provided therapeutic communication and active listening, medication administration/monitoring/education, reality orientation, Q 15 min checks. Restraints/seclusion/emergency medication: None Justification of Continued Inpatient Treatment: Pt is gravely disabled unable to verbalize a plan for food,clothing and detention. Pt is at baseline and awaiting placement.
[2018-11-21] MEDS: LORazepam 1 MG tablet PO PRN ×2 (07:58→20:46)
[2018-11-21] MEDS: lactulose 20gm/30ml cup PO SCH ×2 (07:59→20:41)
[2018-11-21 08:00] VITALS: BP 125/72
[2018-11-21] MEDS: lisinopril 10 MG tablet PO SCH (08:03)
--- NOTE | 2018-11-21 11:02 | NUR ---
Nursing Progress Note: Legal hold: LPS conserved Client on involuntary status for GD, psychosis Report received from MACKENZIE Back with use of SBAR Why are they here: 68 year old male with hx of schizophrenia presents to the ED on a 5150 mental health hold. 5150 was written by a clinician due to the patient being unable to care for himself. Due to the 5150 report that patient was released from [facility] yesterday and attempted to go to his sisters house. It was proved that the patient is unable to provide food, mcc, or clothing for himself and is having grandiose delusions that he is a "dry house operator going through time travel." Patient has no intentions for suicide or homicide. Per Natasha Robert's note, FAMILY AND CONSUMER SCIENCE PROFESSOR, the patient is conserved by the state and she is working and finding placement for him. Assessment: What happened this shift: Pt denied SI/HI/AH/VH or anxiety. Pt also denied any feelings of depression. Observed pt walking up and down the hallway listening to classic [employer] on music headphones loudly. Pt participated in eating breakfast with the rest of the group, and sat next to other patients. Patient was dressed in personal street clothes as opposed to hospital scrubs. Patient was calm and cooperative with a flat affect. Pt complied with all prescribed medications. Frequently checked in with patient asking if he was doing all right and/or needed anything. Patient stated every time that he was fine. No delusional statements made by pt today, no unsafe behaviors noted. S/I, H/I: Pt denies A/VH: Pt denies Sleep: Slept 7 hours per noc shift report ADL's: Independent, showers with prompting. Group attendance: Pt did not attend am group today Were meds taken: Yes though only takes Lactulose and Zestril on day shift. Any med S/E: Flatulence from Lactulose, no adverse effects reported or observed from psych meds. Mental Status Exam Appearance: Clean, bearded, wearing a red polo shirt, tate pants and a tate beanie Eye contact: Fair Behavior: Cooperative, paces, mostly isolative to self, pleasant and cooperative Speech: Clear, audible,poverty of speech Mood: Depressed Affect: Blunted Thought process: linear Thought Content: Pt feeling down as placement has not been found for him yet. Cognition: A/O X 3 Insight: Poor Judgment: Fair Interventions PRN's used: None Therapeutic interventions: 1:1 assessment, therapeutic conversation, active listening, encouraged pt to express his thoughts and feelings, medication administration/monitoring/education, encouragement to attend groups, encouragement to shower, Q 15 min checks. Restraints/seclusion/emergency medication: None Justification of Continued Inpatient Treatment: Pt is gravely disabled unable to verbalize a plan for food,clothing and mcc. Pt is at baseline and awaiting placement.
--- NOTE | 2018-11-21 15:04 | NUR ---
DISCHARGE PLANNING: ELIDA contacted [facility] Office and spoke w/ Prakash at [phone], who reports pt has had several packets sent to [facility]. Currently Svetlana Glez and Svetlana Willis are waiting for pt's Medi-Jeff to be reinstated before the packet will be considered. Virginie Jensen, Receiving Inspector DIGITAL STRATEGIST SENIOR MANAGER [id number] Supervised by Rupesh De La Fuente, [id number]
[2018-11-21 20:00] VITALS: BP 124/72
[2018-11-21] MEDS: risperiDONE 2mg tablet PO SCH (20:40)
[2018-11-21] MEDS: amLODIPine 2.5mg tablet PO SCH (20:41)
--- NOTE | 2018-11-21 22:18 | NUR ---
Nursing Progress Note: Legal hold: LPS conserved Client on involuntary status for GD, psychosis Report received from MACKENZIE sanchez with use of SBAR Why are they here: 68 year old male with hx of schizophrenia presents to the ED on a 5150 mental health hold. 5150 was written by a clinician due to the patient being unable to care for himself. Due to the 5150 report that patient was released from [facility] yesterday and attempted to go to his sisters house. It was proved that the patient is unable to provide food, long-term, or clothing for himself and is having grandiose delusions that he is a "presiding judge going through time travel." Patient has no intentions for suicide or homicide. Per Natasha Robert's note, FITNESS SPECIALIST, the patient is conserved by the state and she is working and finding placement for him. Assessment: What happened this shift: Pt denied SI/HI/AH/VH or anxiety. Pt also denied any feelings of depression. Observed pt walking up and down the hallway listening to classic [employer] on music headphones loudly. Pt participated in eating snack with the rest of the group, and sat next to other patients. Patient was dressed in personal street clothes as opposed to hospital scrubs. Patient was calm and cooperative with a flat affect. Pt complied with all prescribed medications. Frequently checked in with patient asking if he was doing all right and/or needed anything. Patient stated every time that he was fine. No delusional statements made by pt today, no unsafe behaviors noted. S/I, H/I: Pt denies A/VH: Pt denies Sleep: Slept 7 hours per noc shift report ADL's: Independent, showers with prompting. Group attendance: Pt did not attend am group today Were meds taken: Yes though only takes Lactulose and Zestril on day shift. Any med S/E: Flatulence from Lactulose, no adverse effects reported or observed from psych meds. Mental Status Exam Appearance: Clean, bearded, wearing a red polo shirt, tate pants and a tate beanie Eye contact: Fair Behavior: Cooperative, paces, mostly isolative to self, pleasant and cooperative Speech: Clear, audible,poverty of speech Mood: Depressed Affect: Blunted Thought process: linear Thought Content: Pt feeling down as placement has not been found for him yet. Cognition: A/O X 3 Insight: Poor Judgment: Fair Interventions PRN's used: Ativan Therapeutic interventions: 1:1 assessment, therapeutic conversation, active listening, encouraged pt to express his thoughts and feelings, medication administration/monitoring/education, encouragement to attend groups, encouragement to shower, Q 15 min checks. Restraints/seclusion/emergency medication: None Justification of Continued Inpatient Treatment: Pt is gravely disabled unable to verbalize a plan for food,clothing and long-term. Pt is at baseline and awaiting placement.
[2018-11-22 07:29] VITALS: BP 114/56
[2018-11-22] MEDS: lactulose 20gm/30ml cup PO SCH ×2 (08:01→20:26)
[2018-11-22] MEDS: lisinopril 10 MG tablet PO SCH (08:01)
--- NOTE | 2018-11-22 17:40 | NUR ---
Nursing Progress Note: Legal hold: LPS conserved Client on involuntary status for GD, Psychosis Report received from MACKENZIE Montano with use of SBAR Why are they here: 68 year old male with hx of Schizophrenia presents to the ED on a 5150 mental health hold. 5150 was written by a clinician due to the patient being unable to care for himself. Due to the 5150 report that [facility] and attempted to go to his sisters house. It was proved that the patient is unable to provide food, jail, or clothing for himself and is having grandiose delusions that he is a "redeye gunner going through time travel." Patient has no intentions for suicide or homicide. Per Natasha Robert's note, ELECTRONICS TESTER, the patient is conserved by the state and she is working and finding placement for him. Assessment: What happened this shift: Pt denied SI/HI/AH/VH or anxiety. Pt also denied any feelings of depression. Observed pt walking up and down the hallway listening to classic rock on music headphones loudly. Pt participated in eating snack with the rest of the group, and sat next to other patients. Patient was dressed in personal street clothes as opposed to hospital scrubs. Patient was calm and cooperative with a flat affect. Pt complied with all prescribed medications. Frequently checked in with patient asking if he was doing all right and/or needed anything. Patient stated every time that he was fine. No delusional statements made by pt today, no unsafe behaviors noted. S/I, H/I: Pt denies A/VH: Pt denies ADL's: Independent, showers with prompting. Group attendance: Were meds taken: Compliant Any med S/E: None reported, none observed Mental Status Exam Appearance: Clean, bearded, wearing a red polo shirt, tate pants and a tate beanie Eye contact: Fair Behavior: Cooperative, paces hallway, mostly isolative to self but pleasant and cooperative with treatment Speech: Clear, audible, poverty of speech Mood: isolative Affect: Blunted Thought process: linear Thought Content: Cognition: A/O X 3 Insight: Poor Judgment: Fair Interventions PRN's used: None Therapeutic interventions: 1:1 assessment, therapeutic conversation, active listening, encouraged pt to express his thoughts and feelings, medication administration/monitoring/education, encouragement to attend groups, encouragement to shower, Q 15 min checks. Restraints/seclusion/emergency medication: None Justification of Continued Inpatient Treatment: Pt is gravely disabled unable to verbalize a plan for food,clothing and jail. Pt is at baseline and awaiting placement.
[2018-11-22 20:00] VITALS: BP 137/80
[2018-11-22] MEDS: amLODIPine 2.5mg tablet PO SCH (20:26)
[2018-11-22] MEDS: LORazepam 1 MG tablet PO PRN (20:27)
[2018-11-22] MEDS: risperiDONE 2mg tablet PO SCH (20:27)
--- NOTE | 2018-11-22 21:39 | NUR ---
Nursing Progress Note: Legal hold: LPS conserved Client on involuntary status for GD, Psychosis Report received from MACKENZIE Montano with use of SBAR Why are they here: 68 year old male with hx of Schizophrenia presents to the ED on a 5150 mental health hold. 5150 was written by a clinician due to the patient being unable to care for himself. Due to the 5150 report that patient was released [facility] yesterday and attempted to go to his sisters house. It was proved that the patient is unable to provide food, residential, or clothing for himself and is having grandiose delusions that he is a "director global intelligence going through time travel." Patient has no intentions for suicide or homicide. Per Natasha Robert's note, POLICE SHIFT COMMANDER, the patient is conserved by the state and she is working and finding placement for him. Assessment: What happened this shift: Pt denied SI/HI/AH/VH or anxiety. Pt also denied any feelings of depression. Observed pt walking up and down the hallway. Pt participated in eating snack with the rest of the group, and sat next to other patients. Patient was dressed in personal street clothes as opposed to hospital scrubs. Patient was calm and cooperative with a flat affect. Pt complied with all prescribed medications. Frequently checked in with patient asking if he was doing all right and/or needed anything. Patient stated every time that he was fine. No delusional statements made by pt today, no unsafe behaviors noted. S/I, H/I: Pt denies A/VH: Pt denies ADL's: Independent, showers with prompting. Group attendance: Were meds taken: Compliant Any med S/E: None reported, none observed Mental Status Exam Appearance: Clean, bearded, wearing a red polo shirt, tate pants and a tate beanie Eye contact: Fair Behavior: Cooperative, paces hallway, mostly isolative to self but pleasant and cooperative with treatment Speech: Clear, audible, poverty of speech Mood: isolative Affect: Blunted Thought process: linear Thought Content: Cognition: A/O X 3 Insight: Poor Judgment: Fair Interventions PRN's used: None Therapeutic interventions: 1:1 assessment, therapeutic conversation, active listening, encouraged pt to express his thoughts and feelings, medication administration/monitoring/education, encouragement to attend groups, encouragement to shower, Q 15 min checks. Restraints/seclusion/emergency medication: None Justification of Continued Inpatient Treatment: Pt is gravely disabled unable to verbalize a plan for food,clothing and residential. Pt is at baseline and awaiting placement.
[2018-11-23 07:22] VITALS: BP 118/64
[2018-11-23] MEDS: lactulose 20gm/30ml cup PO SCH ×2 (08:28→20:52)
[2018-11-23] MEDS: lisinopril 10 MG tablet PO SCH (08:29)
--- NOTE | 2018-11-23 15:32 | NUR ---
Nursing Progress Note: Aldo Lee Legal hold: LPS conserved Client on involuntary status for GD, Psychosis Report received from MACKENZIE Montano with use of SBAR Why are they here: 68 year old male with hx of Schizophrenia presents to the ED on a 5150 mental health hold. 5150 was written by a clinician due to the patient being unable to care for himself. Due to the 5150 report that patient was released from [facility] yesterday and attempted to go to his sisters house. It was proved that the patient is unable to provide food, [facility], or clothing for himself and is having grandiose delusions that he is a "crutcher helper going through time travel." Patient has no intentions for suicide or homicide. Per Natasha Robert's note, OUTSIDE INSTALLER APPRENTICE, the patient is conserved by the state and she is working and finding placement for him. Assessment: What happened this shift: Patient in bed sleeping at change of shift. Calm, cooperative with physical and MH assessment. Ambulated to community room for breakfast, then ambulated in hallway. When asked by this song writer what the year is, he responds my time 1981, your time 2018 when asked to explain he responded Im a time traveler, in 1972 I traveled to [place], but it was the year 3000 or something. Spoke with PA while ambulating in the [place]. Attended both groups. S/I, H/I: Pt denies A/VH: Pt denies ADL's: Independent, showers with prompting. Group attendance: yes Were meds taken: Compliant Any med S/E: None reported, none observed Mental Status Exam Appearance: deshelved, bearded, wearing navy padmini-shirt and ten, and tate beany Eye contact: Fair Behavior: Cooperative, paces hallway, mostly isolative to self but pleasant and cooperative with treatment Speech: Clear, audible, poverty of speech Mood: Euthymic Affect: Blunted Thought process: linear Thought Content: waiting for discharge, time travel Cognition: A/O X 3 Insight: Poor Judgment: Fair Interventions PRN's used: None Therapeutic interventions: 1:1 assessment, therapeutic conversation, active listening, encouraged pt to express his thoughts and feelings, medication administration/monitoring/education, encouragement to attend groups, encouragement to shower, Q 15 min checks. Restraints/seclusion/emergency medication: None Justification of Continued Inpatient Treatment: Pt is gravely disabled unable to verbalize a plan for food,clothing and [facility]. Pt is at baseline and awaiting placement.
--- NOTE | 2018-11-23 18:00 | NUR ---
Discharge Planning: Faxed Doctor's & RN's notes and medication list for the dates of 11/16/2018 through 11/22/2018 to update weekly placement packet information. Phoned G[facility] and davian TAD received updated weekly notes. TAN Graf
[2018-11-23] MEDS: LORazepam 1 MG tablet PO PRN (19:35)
[2018-11-23 20:00] VITALS: BP 128/79
[2018-11-23] MEDS: risperiDONE 2mg tablet PO SCH (20:52)
[2018-11-23] MEDS: amLODIPine 2.5mg tablet PO SCH (20:57)
--- NOTE | 2018-11-24 01:27 | NUR ---
Nursing Progress Note: Legal hold: LPS conserved Client on involuntary status for GD, Psychosis Report received from MACKENZIE Ball with use of SBAR Why are they here: 68 year old male with hx of Schizophrenia presents to the ED on a 5150 mental health hold. 5150 was written by a clinician due to the patient being unable to care for himself. Due to the 5150 report that patient was released from [facility] yesterday and attempted to go to his sisters house. It was proved that the patient is unable to provide food, mcc, or clothing for himself and is having grandiose delusions that he is a "bench inspector going through time travel." Patient has no intentions for suicide or homicide. Per Natasha Robert's note, AIRCRAFT MECHANIC STRUCTURES, the patient is conserved by the state and she is working and finding placement for him. Assessment: What happened this shift: Pt was pacing the halls at shift change. Pt will engage with staff, but not with other patients, however noticing more interaction with roommate. Pt was wearing a pair if his new jeans. Pt is able to make needs known , but isolates to himself. Pt was medication compliant and 1:1 completed at bedside. Pt requested an Ativan for anxiety 12/31. Pt made no delusional statements this shift. Pt is aware he is in the hospital, but is unable to say which one. S/I, H/I: None reported or observed A/VH: None reported or observed ADL's: Independent, with some prompting Group attendance: operations supervisor 2nd shift, no group Were meds taken: Medication compliant Any med S/E: None reported, none observed Mental Status Exam Appearance: Clean, bearded, wearing blue shirt and blue jeans Eye contact: Fair Behavior: Cooperative, paces hallway, mostly isolative to self but pleasant and cooperative with treatment Speech: Clear, poverty of speech Mood: Euthymic Affect: Blunted with some brightening Thought process: Linear - pt made no delusional statements this shift Thought Content: Pt is bored. Cognition: A/O X 3 Insight: Poor Judgment: Poor Interventions PRN's used: Ativan Therapeutic interventions: 1:1 assessment, therapeutic conversation, active listening, encouraged pt to express his thoughts and feelings, medication administration/monitoring/education, encouragement to attend groups, encouragement to shower, Q 15 min checks. Restraints/seclusion/emergency medication: None Justification of Continued Inpatient Treatment: Pt is gravely disabled unable to verbalize a plan for food,clothing and mcc. Pt is at baseline and awaiting placement. Addendum: 11/24/18 at 0413 by Carlota Tillman RN Appearance: Small head tremor noted when pt was pacing halls.
[2018-11-24 07:30] VITALS: BP 130/76
[2018-11-24] MEDS: lactulose 20gm/30ml cup PO SCH ×2 (08:14→21:22)
[2018-11-24] MEDS: lisinopril 10 MG tablet PO SCH (08:14)
[2018-11-24] MEDS: LORazepam 1 MG tablet PO PRN ×2 (09:24→19:16)
--- NOTE | 2018-11-24 10:09 | NUR ---
Reassessment: Noted that patient's wt is up 6 kg since first bed scaled weight. Pt documented with 100% PO intake meeting nutrient needs and on medications known to contribute to wt gain (Suraj Banks). LB 11/23. Will continue to follow. Recommendations: 1) Continue with regular diet 2) antihyperlipidemic per MD approval for TG 186 3) Weekly wts Addendum: 11/24/18 at [address] Amended: Links added.
--- NOTE | 2018-11-24 17:30 | NUR ---
Nursing Progress Note: Legal hold: LPS conserved Client on involuntary status for GD, Psychosis Report received from MACKENZIE Montano with use of SBAR Why are they here: 68 year old male with hx of Schizophrenia presents to the ED on a 5150 mental health hold. 5150 was written by a clinician due to the patient being unable to care for himself. Due to the 5150 report that patient was released from correction yesterday and attempted to go to his sisters house. It was proved that the patient is unable to provide food, care home, or clothing for himself and is having grandiose delusions that he is a "orderlies teacher going through time travel." Patient has no intentions for suicide or homicide. Per Natasha Robert's note, LEVEE SUPERINTENDENT, the patient is conserved by the state and she is working and finding placement for him. Assessment: What happened this shift: Pt was pacing the halls at shift change. Pt will engage with staff, but not with other patients, however, pt. will engage with his roommate. Pt is wearing street clothes that his conservator bought. Pt is able to make needs known , but isolates to himself. Pt was medication compliant and 1:1 completed at bedside. Pt requested an Ativan for anxiety. Pt reports he will go back to work after he is discharged. Pt. reports he wants to be discharged. Pt. requested Ativan 1mg po for restlessness and given with good effect. S/I, H/I: None reported or observed A/VH: None reported or observed ADL's: Independent, with some prompting Sleep: 6.5 hours Group attendance: Yes Were meds taken: Medication compliant Any med S/E: None reported, none observed Mental Status Exam Appearance: disheveled, bearded, wearing blue shirt and blue jeans Eye contact: Fair Behavior: Cooperative, paces hallway, mostly isolative to self but pleasant and cooperative with treatment Speech: Clear, poverty of speech Mood: Euthymic Affect: Blunted with some brightening Thought process: Linear Thought Content: Talks about discharge often. Cognition: A/O X 3 Insight: Poor Judgment: Poor Interventions PRN's used: Ativan Therapeutic interventions: 1:1 assessment, therapeutic conversation, active listening, encouraged pt to express his thoughts and feelings, medication administration/monitoring/education, encouragement to attend groups, encouragement to shower, Q 15 min checks. Restraints/seclusion/emergency medication: None Justification of Continued Inpatient Treatment: Pt is gravely disabled unable to verbalize a plan for food,clothing and care home. Pt is at baseline and awaiting placement.
[2018-11-24 20:00] VITALS: BP 132/75
[2018-11-24] MEDS: risperiDONE 2mg tablet PO SCH (21:22)
[2018-11-24] MEDS: amLODIPine 2.5mg tablet PO SCH (21:25)
--- NOTE | 2018-11-25 01:56 | NUR ---
Nursing Progress Note: Legal hold: LPS conserved Client on involuntary status for GD, Psychosis Report received from MACKENZIE Long with use of SBAR Why are they here: 68 year old male with hx of Schizophrenia presents to the ED on a 5150 mental health hold. 5150 was written by a clinician due to the patient being unable to care for himself. Due to the 5150 report that patient was released from [facility] yesterday and attempted to go to his sisters house. It was proved that the patient is unable to provide food, chcf, or clothing for himself and is having grandiose delusions that he is a "art therapy specialist going through time travel." Patient has no intentions for suicide or homicide. Per Natasha Robert's note, WELT SOLE LAYER, the patient is conserved by the state and she is working and finding placement for him. Assessment: What happened this shift: Pt. is walking halls at shift change. Pt is pleasant and answers questions when asked. Later pt requests and Ativan states his anxiety is a 6/10. Asked if he would like to take a shower, pt states after he gets "his pill." Pt is given hygiene supplies and pt showers and dresses [facility]. Pt retires to bed around 2129. S/I, H/I: None reported or observed A/VH: None reported or observed ADL's: Independent, with some prompting Group attendance: night shift supervisor, no group Were meds taken: Medication compliant Any med S/E: None reported, none observed Mental Status Exam Appearance: Bearded, wearing same blue shirt and jeans from yesterday. Pt agreed to shower this shift. Eye contact: Fair Behavior: Cooperative, paces hallway, mostly isolative to self but pleasant and cooperative with treatment & staff Speech: Clear, poverty of speech Mood: Euthymic Affect: Blunted with some brightening Thought process: Linear - pt made no delusional statements this shift. Thought Content: Pt is bored. Cognition: A/O X 3 Insight: Poor Judgment: Poor Interventions PRN's used: Ativan Therapeutic interventions: 1:1 assessment, therapeutic conversation, active listening, encouraged pt to express his thoughts and feelings, medication administration/monitoring/education, encouragement to attend groups, encouragement to shower, Q 15 min checks. Restraints/seclusion/emergency medication: None Justification of Continued Inpatient Treatment: Pt is gravely disabled unable to verbalize a plan for food,clothing and chcf. Pt is at baseline and awaiting placement.
[2018-11-25] MEDS: lactulose 20gm/30ml cup PO SCH ×2 (07:42→20:06)
[2018-11-25] MEDS: lisinopril 10 MG tablet PO SCH (07:43)
[2018-11-25 07:51] VITALS: BP 127/65
[2018-11-25] MEDS: LORazepam 1 MG tablet PO PRN (11:31)
--- NOTE | 2018-11-25 17:00 | NUR ---
Nursing Progress Note: Legal hold: LPS conserved Client on involuntary status for GD, Psychosis Report received from Sol Cazares RN with use of SBAR Why are they here: 68 year old male with hx of Schizophrenia presents to the ED on a 5150 mental health hold. 5150 was written by a clinician due to the patient being unable to care for himself. Due to the 5150 report that [facility] was [facility] from [facility] yesterday and attempted to go to his sisters house. It was proved that the patient is unable to provide food, fdc, or clothing for himself and is having grandiose delusions that he is a "emergency management director going through time travel." Patient has no intentions for suicide or homicide. Per Natasha Robert's note, FINISH ROLLS OPERATOR, the patient is conserved by the state and she is working and finding placement for him. Assessment: What happened this shift: Pt. sleeping at start of shift. Pt. awake for meds and ate all meals. 1:1 done at bedside. RN asked pt. about tatoo on his shoulder, pt. reports that it is his 's name, RN asked, where his is, pt. replied, "she's trying to get me out of here... at least I think she is". Pt. reporting restlessness and requested PRN Ativan and given with good effect. Pt. reports he does not want cogentin because of side effects. Pt. went to morning group but not afternoon group and slept instead. S/I, H/I: Denies A/VH: Denies ADL's: Independent with some prompting Sleep: 7 hrs. pt. naped x1 this afternoon. Group attendance: Attended morning group. Were meds taken: Medication compliant Any med S/E: None reported, none observed Mental Status Exam Appearance: Bearded, wearing same blue shirt and jeans from yesterday. Pt showered this shift. Eye contact: Fair Behavior: Cooperative, paces hallway, mostly isolative to self but pleasant and cooperative with treatment & staff Speech: Clear, poverty of speech Mood: Euthymic Affect: Blunted with some brightening Thought process: Linear - pt made no delusional statements this shift. Thought Content: Pt is bored. Cognition: A/O X 3 Insight: Poor Judgment: Poor Interventions PRN's used: Ativan Therapeutic interventions: 1:1 assessment, therapeutic conversation, active listening, encouraged pt to express his thoughts and feelings, medication administration/monitoring/education, encouragement to attend groups, encouragement to shower, Q 15 min checks. Restraints/seclusion/emergency medication: None Justification of Continued Inpatient Treatment: Pt is gravely disabled unable to verbalize a plan for food,clothing and fdc. Pt is at baseline and awaiting placement.
--- NOTE | 2018-11-25 17:17 | NUR ---
Discharge Planning: Phoned [facility] Office and spoke w/ Deena to inquire about pt's placement status. Deena said she spoke w/ See Mehta, the Oral Surgery Technician @ [facility] and he is willing to consider taking pt when MediCal is reinstated , also pt has some funding that may allow them to take pt in the interim. If MediCal is not active Wednesday Deena suggested phoning pt's Public Guardian, Heydi Song @ [phone], to get an idea of time frame. Packet was also sent to [facility], but they have not heard back from them. Lili Samsno, ACSW
[2018-11-25] MEDS: hydrOXYzine 25 MG tablet PO PRN (19:10)
[2018-11-25 20:00] VITALS: BP 110/70
[2018-11-25] MEDS: risperiDONE 2mg tablet PO SCH (20:06)
[2018-11-25] MEDS: amLODIPine 2.5mg tablet PO SCH (20:06)
--- NOTE | 2018-11-26 00:11 | NUR ---
Nursing Progress Note: Legal hold: LPS Client on involuntary status for GD Report received from nurse with use of SBAR: MACKENZIE Millan Why are they here: Pt. has a hx of Schizophrenia presents to the ED on a 5150 mental health hold. 5150 was written by a clinician due to the patient being unable to care for himself. Due to the 5150 report that patient was released from [facility] yesterday and attempted to go to his sisters house. It was proved that the patient is unable to provide food, custodial, or clothing for himself and is having grandiose delusions that he is a "driller multiple spindle going through time travel." Patient has no intentions for suicide or homicide. Per Natasha Robert's note, FOOD SERVICE WORKER, the patient is conserved by the state and she is working and finding placement for him. Assessment What has happened this shift: Pt. up pacing in the halls at the beginning of the shift, he is pleasant and greets this insurance underwriter when greeted. Later, he approaches and requests PRN Ativan, states, "I need it to help me relax." Pt. educated by this insurance underwriter, that it is not yet time for a repeat dose of Ativan as it had been given earlier. PRN Atrax administered and pt. educated to notify staff if ineffective. Pt. voiced understanding, and later when asked reported Atrax to be effective. 1:1 completed at bedside, pt. presents as cooperative, however guarded. He denies any H/A or feelings of paranoia. He is A&O except when questioned regarding why he is here, pt. states, "I don't know." He goes on to talk about how he used to live at the [facility] and he feels he was able to care for himself there; however admits, "Sometimes I needed help from my sister, but she was busy taking care of herself." When questioned regarding if he consistently took his medication, he agrees, and reports that he used to see a doctor, but he did such a good job taking meds that the doctor released him. S/I, H/I: N/A A/VH: Denies, and does not appear to be responding to internal stimuli. Sleep: Reports he has been sleeping well ADL's: Requires some direction from staff (i.e. changing his clothing or putting his washed clothing away) Group attendance: Goes to groups Were meds taken: Yes Any med S/E: None Mental Status Exam Appearance: Wearing fresh clothing, neat, and continues to wear tate beanie hat on head Eye contact: Good Behavior: Cooperative, however guarded, and restlessly pacing halls Speech: WNL, minimal, responds only to questions Mood: Pleasant, anxious Affect: Blunted Thought process: Poverty of thought Thought Content: Delusions and on-going anxiety Cognition: A&O X3 (reports doesn't know why he's here) Insight: Poor Judgment: Fair Interventions PRN's used: Atrax X1 Therapeutic interventions: Introduced self and established rapport, maintained a safe and therapeutic environment, provided clear and simple instructions, reoriented to reality as needed, encouraged independent performance of ADLs and provided direction as needed, and maintained Q 15 min safety checks. Restraints/seclusion/emergency medication: N/A Justification of Continued Inpatient Treatment: Pt. is unable to provide for his own food, clothing, or custodial and is awaiting placement by [facility].
[2018-11-26 07:57] VITALS: BP 106/55
[2018-11-26] MEDS: lisinopril 10 MG tablet PO SCH (08:02)
[2018-11-26] MEDS: lactulose 20gm/30ml cup PO SCH ×2 (08:03→20:18)
--- NOTE | 2018-11-26 14:45 | NUR ---
Nursing Progress Note Legal hold: LPS conserved Client on involuntary status for GD, Psychosis Report received from Sol Cazares RN with use of SBAR Why are they here: 68 year old male with hx of Schizophrenia presents to the ED on a 5150 mental health hold. 5150 was written by a clinician due to the patient being unable to care for himself. Due to the 5150 report that patient was released from prison yesterday and attempted to go to his sisters house. It was proved that the patient is unable to provide food, prison, or clothing for himself and is having grandiose delusions that he is a "lip reading teacher going through time travel." Patient has no intentions for suicide or homicide. Per Natasha Robert's note, ARM REST BUILDER, the patient is conserved by the state and she is working and finding placement for him. Assessment: What happened this shift: Patient awake for breakfast and medications. Patient states that all this started when he was having problems with his and that they were , but are "back together now". Asked if she comes and visits, he stated that she hadn't, asked if he has contacted her by phone, states that he hasn't had communication with her. Clearly, believes that they are back together even though she moved to [place] to be with her parents. States that he has been several dozens of times. 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 Eats 100% of food, sleeps good, regular bowel movements. S/I, H/I: Denies A/VH: Denies ADL's: Independent with some prompting Sleep: States that he slept well and took nap after a.m. group. Group attendance: Yes. Were meds taken: Medication compliant Any med S/E: None reported, none observed Mental Status Exam Appearance: Bearded, wearing same blue shirt and jeans from yesterday. Eye contact: Fair Behavior: Cooperative, paces hallway, mostly isolative to self but pleasant and cooperative with treatment & staff Speech: soft, difficult to understand at times due to pt. being edentulous. Mood: Euthymic Affect: Blunted. Thought process: Pt makes grandiose statements about career and (s). Thought Content: Pt is biding his time here. Cognition: A/O X 3 Insight: Poor Judgment: Poor Interventions PRN's used: None. Therapeutic interventions: 1:1 assessment, therapeutic conversation, active listening, encouraged pt to express his thoughts and feelings, medication administration/monitoring/education, encouragement to attend groups, encouragement to shower, Q 15 min checks. Restraints/seclusion/emergency medication: None Justification of Continued Inpatient Treatment: Pt is gravely disabled on LPS conservatorship, awaiting conservator and SW to find suitable placement.
[2018-11-26 20:00] VITALS: BP 120/54
[2018-11-26] MEDS: amLODIPine 2.5mg tablet PO SCH (20:18)
[2018-11-26] MEDS: risperiDONE 2mg tablet PO SCH (20:19)
--- NOTE | 2018-11-27 02:35 | NUR ---
Nursing Progress Note: Legal hold: LPS Client on involuntary status for GD Report received from nurse with use of SBAR: MACKENZIE Millan Why are they here: Pt. has a hx of Schizophrenia presents to the ED on a 5150 mental health hold. 5150 was written by a clinician due to the patient being unable to care for himself. Due to the 5150 report that patient was released from retirement yesterday and attempted to go to his sisters house. It was proved that the patient is unable to provide food, retirement, or clothing for himself and is having grandiose delusions that he is a "linseed oil temperer going through time travel." Patient has no intentions for suicide or homicide. Per Natasha Robert's note, CREAM CHEESE MAKER, the patient is conserved by the state and she is working and finding placement for him. Assessment What has happened this shift: Pt. sleeping in bed at the beginning of the shift, continued to isolate here throughout the shift. 1:1 completed at bedside, pt. presents as cooperative, fatigued, and guarded. He continues to deny any H/A, and does not appear to be responding to internal stimuli. No delusional statements made this shift. Also, pt. denies any depression or anxiety, although appears to be somewhat sad this shift. When questioned by this proposal lead writer, pt. states, "I'm fine, I'm just tired. I slept good last night with that medication you gave me." Pt. attends HS snack and then returns back to bed, will continue to monitor. S/I, H/I: N/A A/VH: Denies, and does not appear to be responding to internal stimuli. Sleep: Reports he has been sleeping well ADL's: Requires some direction from staff (i.e. changing his clothing or putting his washed clothing away) Group attendance: Goes to groups Were meds taken: Yes Any med S/E: None Mental Status Exam Appearance: Neat, continues to wear tate beanie hat on head Eye contact: Good Behavior: Cooperative, however guarded, and fatigued Speech: WNL, minimal, responds only to questions Mood: Pleasant, withdrawn Affect: Blunted Thought process: Poverty of thought Thought Content: Linear with grandiose delusions at times Cognition: A&O X3 (reports doesn't know why he's here) Insight: Poor Judgment: Fair Interventions PRN's used: None Therapeutic interventions: Maintained a safe and therapeutic environment, provided clear and simple instructions, reoriented to reality as needed, encouraged independent performance of ADLs and provided direction as needed, and maintained Q 15 min safety checks. Restraints/seclusion/emergency medication: N/A Justification of Continued Inpatient Treatment: Pt. is unable to provide for his own food, clothing, or retirement and is awaiting placement by [facility].
[2018-11-27 08:00] VITALS: BP 126/71
[2018-11-27] MEDS: lactulose 20gm/30ml cup PO SCH ×2 (08:11→20:26)
[2018-11-27] MEDS: lisinopril 10 MG tablet PO SCH (08:12)
--- NOTE | 2018-11-27 18:28 | NUR ---
Nursing Progress Note Legal hold: LPS conserved Client on involuntary status for GD, Psychosis Report received from Sol Cazares RN with use of SBAR Why are they here: 68 year old male with hx of Schizophrenia presents to the ED on a 5150 mental health hold. 5150 was written by a clinician due to the patient being unable to care for himself. Due to the 5150 report that patient was released from prison yesterday and attempted to go to his sisters house. It was proved that the patient is unable to provide food, residential, or clothing for himself and is having grandiose delusions that he is a "leasing assistant going through time travel." Patient has no intentions for suicide or homicide. Per Natasha Robert's note, CRYOGENICS REPAIRER, the patient is conserved by the state and she is working and finding placement for him. Assessment: What happened this shift: Patient is alert and oriented, but also believes it is 1982 and that he is 31 years old. 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 States he and his "get along just fine", even though no contact for months, and she moved to [place] with parents. S/I, H/I: Denies A/VH: Denies ADL's: Independent with some prompting Sleep: 7 hrs. at [facility], took nap after a.m. group. Group attendance: Yes. Were meds taken: Medication compliant Any med S/E: None reported, none observed Mental Status Exam Appearance: Bearded, wearing same blue shirt, beanie, and jeans from yesterday. Eye contact: Fair Behavior: Cooperative, paces hallway, mostly isolative to self but pleasant and cooperative with treatment & staff Speech: soft, difficult to understand at times due to pt. being edentulous. Mood: "Pretty good, lousy". Lousy that he is still here. Affect: Blunted. 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 Pt. 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 Cognition: A/O X 3, but also believes in previous time that he is 31 and it is 1981. Insight: Poor Judgment: Poor Interventions PRN's used: None. Therapeutic interventions: 1:1 assessment, therapeutic conversation, active listening, encouraged pt to express his thoughts and feelings, medication administration/monitoring/education, encouragement to attend groups, encouragement to shower, Q 15 min checks. Restraints/seclusion/emergency medication: None Justification of Continued Inpatient Treatment: Pt is gravely disabled on LPS conservatorship, awaiting conservator and SW to find suitable placement.
[2018-11-27 19:55] VITALS: BP 157/86
[2018-11-27] MEDS: risperiDONE 2mg tablet PO SCH (20:27)
[2018-11-27] MEDS: amLODIPine 2.5mg tablet PO SCH (20:27)
--- NOTE | 2018-11-27 22:01 | NUR ---
Nursing Progress Note Legal hold: LPS conserved Client on involuntary status for GD, Psychosis Report received from Yana MANN with use of SBAR Why are they here: 68 year old male with hx of Schizophrenia presents to the ED on a 5150 mental health hold. 5150 was written by a clinician due to the patient being unable to care for himself. Due to the 5150 report that patient was released from [facility] yesterday and attempted to go to his sisters house. It was proved that the patient is unable to provide food, half-way, or clothing for himself and is having grandiose delusions that he is a "corn husker machine operator going through time travel." Patient has no intentions for suicide or homicide. Per Natasha Robert's note, HORSE SHOW JUDGE, the patient is conserved by the state and she is working and finding placement for him. Assessment: What happened this shift: Patient is alert and oriented, but Per report believes it is 1983 and that he is 31 years old. 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 States he and his "get along just fine", even though no contact for months, and she moved to [place] with parents. 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 He is pacing the [facility] waiting to go home. S/I, H/I: Denies A/VH: Denies ADL's: Independent with some prompting Sleep: 7 hrs. at [facility], took nap after a.m. group. Group attendance: Yes. Were meds taken: Medication compliant Any med S/E: None reported, none observed Mental Status Exam Appearance: Bearded, wearing same blue shirt, beanie, and jeans from yesterday. Eye contact: Fair Behavior: Cooperative, paces hallway, mostly isolative to self but pleasant and cooperative with treatment & staff Speech: soft, difficult to understand at times due to pt. being edentulous. Mood: "Pretty good, lousy". Lousy that he is still here. Affect: Blunted. 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 Pt. 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 Cognition: A/O X 3, but also believes in previous time that he is 31 and it is 1981. Insight: Poor Judgment: Poor Interventions PRN's used: None. Therapeutic interventions: 1:1 assessment, therapeutic conversation, active listening, encouraged pt to express his thoughts and feelings, medication administration/monitoring/education, encouragement to attend groups, encouragement to shower, Q 15 min checks. Restraints/seclusion/emergency medication: None Justification of Continued Inpatient Treatment: Pt is gravely disabled on LPS conservatorship, awaiting conservator and SW to find suitable placement.
[2018-11-28] MEDS: lactulose 20gm/30ml cup PO SCH ×2 (07:59→20:33)
[2018-11-28] MEDS: lisinopril 10 MG tablet PO SCH (07:59)
[2018-11-28 08:05] VITALS: BP 140/82
--- NOTE | 2018-11-28 16:50 | NUR ---
Nursing Progress Note Legal hold: LPS conserved Client on involuntary status for GD, Psychosis Report received from MACKENZIE Bella with use of SBAR Why are they here: 68 year old male with hx of Schizophrenia presents to the ED on a 5150 mental health hold. 5150 was written by a clinician due to the patient being unable to care for himself. Due to the 5150 report that patient was released from nursing home yesterday and attempted to go to his sisters house. It was proved that the patient is unable to provide food, halfway, or clothing for himself and is having grandiose delusions that he is a "deck steward going through time travel." Patient has no intentions for suicide or homicide. Per Natasha Robert's note, TAKE UP OPERATOR, the patient is conserved by the state and she is working and finding placement for him. Assessment: What happened this shift: Received patient sleeping in bed. Patient got up just in time for breakfast and had breakfast in his pajamas. After breakfast patient in room self up and got dressed in clothes for the day. Pt denies depression and S.I. Patient continues to pace the unit and attends group with minimal participation. Patient does not initiate interaction with others but engages when approached. Patient states he is ready to get out of here. S/I, H/I: Denies A/VH: Denies ADL's: Independent with some prompting Sleep: 7.5 hrs. at NOC, took nap after a.m. group. Group attendance: Yes. Were meds taken: Medication compliant Any med S/E: None reported, none observed Mental Status Exam Appearance: Bearded, wearing same blue shirt, beanie, and jeans from yesterday. Eye contact: Fair Behavior: Cooperative, paces hallway, mostly isolative to self but pleasant and cooperative with treatment & staff Speech: soft, difficult to understand at times due to pt. being edentulous. Mood: "Pretty good, lousy". Lousy that he is still here. Affect: Blunted. 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 Pt. 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 Cognition: A/O X 3, but also believes in previous time that he is 31 and it is 1982. Insight: Poor Judgment: Poor Interventions PRN's used: None. Therapeutic interventions: 1:1 assessment, therapeutic conversation, active listening, encouraged pt to express his thoughts and feelings, medication administration/monitoring/education, encouragement to attend groups, encouragement to shower, Q 15 min checks. Restraints/seclusion/emergency medication: None Justification of Continued Inpatient Treatment: Pt is gravely disabled on LPS conservatorship, awaiting conservator and SW to find suitable placement.
[2018-11-28 20:00] VITALS: BP 141/77
[2018-11-28] MEDS: risperiDONE 2mg tablet PO SCH (20:34)
[2018-11-28] MEDS: amLODIPine 2.5mg tablet PO SCH (20:34)
--- NOTE | 2018-11-28 23:48 | NUR ---
Nursing Progress Note Legal hold: LPS conserved Client on involuntary status for GD, Psychosis Report received from MACKENZIE Millan with use of SBAR Why are they here: 68 year old male with hx of Schizophrenia presents to the ED on a 5150 mental health hold. 5150 was written by a clinician due to the patient being unable to care for himself. Due to the 5150 report that patient was released from [facility] yesterday and attempted to go to his sisters house. It was proved that the patient is unable to provide food, residential, or clothing for himself and is having grandiose delusions that he is a "diving judge going through time travel." Patient has no intentions for suicide or homicide. Per Natasha Robert's note, HEALTH AND SAFETY TECHNICIAN, the patient is conserved by the state and she is working and finding placement for him. Assessment: What happened this shift: Received patient Pacing in the [place]. Patient up for snack then laid down in room. Pt denies depression and S.I. Patient continues to pace the unit and attends group with minimal participation. Patient does not initiate interaction with others but engages when approached. Patient reports feeling well but is tired of being here and feels he is ready to get out of here. S/I, H/I: Denies A/VH: Denies ADL's: Independent with some prompting Sleep: 7.5 hrs. at NOC, took nap after a.m. group. Group attendance: Yes. Were meds taken: Medication compliant Any med S/E: None reported, none observed Mental Status Exam Appearance: Bearded, wearing same blue shirt, beanie, and jeans from yesterday. Eye contact: Fair Behavior: Cooperative, paces hallway, mostly isolative to self but pleasant and cooperative with treatment & staff Speech: soft, difficult to understand at times due to pt. being edentulous. Mood: "Pretty good, lousy". Lousy that he is still here. Affect: Blunted. 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 Pt. 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 Cognition: A/O X 3, but also believes in previous time that he is 31 and it is 1982. Insight: Poor Judgment: Poor Interventions PRN's used: None. Therapeutic interventions: 1:1 assessment, therapeutic conversation, active listening, encouraged pt to express his thoughts and feelings, medication administration/monitoring/education, encouragement to attend groups, encouragement to shower, Q 15 min checks. Restraints/seclusion/emergency medication: None Justification of Continued Inpatient Treatment: Pt is gravely disabled on LPS conservatorship, awaiting conservator and SW to find suitable placement.
[2018-11-29 07:13] VITALS: BP 122/60
[2018-11-29] MEDS: lactulose 20gm/30ml cup PO SCH ×2 (08:11→20:48)
[2018-11-29] MEDS: lisinopril 10 MG tablet PO SCH (08:12)
--- NOTE | 2018-11-29 17:39 | NUR ---
Nursing Progress Note Legal hold: LPS conserved Client on involuntary status for GD, Psychosis Report received from ABHISHEK Montano with use of SBAR Why are they here: 68 year old male with hx of Schizophrenia presents to the ED on a 5150 mental health hold. 5150 was written by a clinician due to the patient being unable to care for himself. Due to the 5150 report that patient was released from [facility] yesterday and attempted to go to his sisters house. It was proved that the patient is unable to provide food, longterm, or clothing for himself and is having grandiose delusions that he is a "dressage judge going through time travel." Patient has no intentions for suicide or homicide. Per Natasha Robert's note, MANAGER COLLEGE, the patient is conserved by the state and she is working and finding placement for him. Assessment: What happened this shift: Pt sleeping in his bed awoke for assessment and am medications. Pt denies pain and endorses a good night of sleep. He paces the halls changes from wearing shoes to not wearing shoes wearing a hat then not wearing a hat. Pt up for all meals and attends groups does not participate. Expresses his desire to leave more than once this shift. S/I, H/I: Denies A/VH: Denies ADL's: Independent with some prompting Sleep: 8.5 hrs. at [facility], nap in the am Group attendance: Yes. Were meds taken: Medication compliant Any med S/E: None reported, none observed Mental Status Exam Appearance: older gentleman w/strong nicely dressed occasionally wears a beanie Eye contact: Fair Behavior: Cooperative, paces hallway, isolates Speech: low volume normal rate and rhythm Mood: Smiles as he paces the hallway Affect: Blunted. Thought process: leaving here Thought Content: leaving Cognition: A/Ox3 Insight: Poor Judgment: Poor Interventions PRN's used: None. Therapeutic interventions: 1:1 assessment, therapeutic communication and active listening, encouraged pt to shower, medication administration/monitoring/education, encouragement to attend groups, monitor Q 15 min for safety. Restraints/seclusion/emergency medication: None Justification of Continued Inpatient Treatment: Pt is gravely disabled on [facility] conservatorship, awaiting conservator and [place] [facility] to find suitable placement.
[2018-11-29 20:00] VITALS: BP 123/71
[2018-11-29] MEDS: risperiDONE 2mg tablet PO SCH (20:49)
[2018-11-29] MEDS: amLODIPine 2.5mg tablet PO SCH (20:49)
--- NOTE | 2018-11-29 21:59 | NUR ---
Nursing Progress Note Legal hold: LPS conserved Client on involuntary status for GD, Psychosis Report received from MACKENZIE Long with use of SBAR Why are they here: 68 year old male with hx of Schizophrenia presents to the ED on a 5150 mental health hold. 5150 was written by a clinician due to the patient being unable to care for himself. Due to the 5150 report that patient was released from assisted yesterday and attempted to go to his sisters house. It was proved that the patient is unable to provide food, penitentiary, or clothing for himself and is having grandiose delusions that he is a "senior label specialist going through time travel." Patient has no intentions for suicide or homicide. Per Natasha Robert's note, COMPUTER GRAPHIC DESIGNER, the patient is conserved by the state and she is working and finding placement for him. Assessment: What happened this shift: Pt sleeping in his bed awoke for assessment and am medications. Pt denies pain and endorses a good night of sleep. He paces the halls changes from wearing shoes to not wearing shoes wearing a hat then not wearing a hat. Pt up for all meals and attends groups does not participate. Expresses his desire to leave more than once this shift. S/I, H/I: Denies A/VH: Denies ADL's: Independent with some prompting Sleep: 8.5 hrs. at [facility], nap in the am Group attendance: Yes. Were meds taken: Medication compliant Any med S/E: None reported, none observed Mental Status Exam Appearance: older gentleman w/strong nicely dressed occasionally wears a beanie Eye contact: Fair Behavior: Cooperative, paces hallway, isolates Speech: low volume normal rate and rhythm Mood: Smiles as he paces the hallway Affect: Blunted. Thought process: leaving here Thought Content: leaving Cognition: A/Ox3 Insight: Poor Judgment: Poor Interventions PRN's used: None. Therapeutic interventions: 1:1 assessment, therapeutic communication and active listening, encouraged pt to shower, medication administration/monitoring/education, encouragement to attend groups, monitor Q 15 min for safety. Restraints/seclusion/emergency medication: None Justification of Continued Inpatient Treatment: Pt is gravely disabled on [facility] conservatorship, awaiting conservator and [place] [facility] to find suitable placement.
[2018-11-29] MEDS: LORazepam 1 MG tablet PO PRN (22:40)
[2018-11-30 08:00] VITALS: BP 126/67
[2018-11-30] MEDS: lactulose 20gm/30ml cup PO SCH ×2 (08:30→21:05)
[2018-11-30] MEDS: lisinopril 10 MG tablet PO SCH (08:31)
--- NOTE | 2018-11-30 16:28 | NUR ---
Nursing Progress Note Legal hold: LPS conserved Client on involuntary status for GD, Psychosis Report received from ABHISHEK Montano with use of SBAR Why are they here: 68 year old male with hx of Schizophrenia presents to the ED on a 5150 mental health hold. 5150 was written by a clinician due to the patient being unable to care for himself. Due to the 5150 report that patient was released from longterm yesterday and attempted to go to his sisters house. It was proved that the patient is unable to provide food, prison, or clothing for himself and is having grandiose delusions that he is a "diving judge going through time travel." Patient has no intentions for suicide or homicide. Per Natasha Robert's note, MILK RUNNER, the patient is conserved by the state and she is working and finding placement for him. Assessment: What happened this shift: Pt sleeping in his bed awoke for assessment and am medications. Pt paced the hallways in his [facility] for most of the morning. He attended afternoon group for 15min. S/I, H/I: Denies A/VH: Denies ADL's: Independent with some prompting Sleep: Napped prior to lunch Group attendance: 15 minutes Were meds taken: Medication compliant Any med S/E: None reported, none observed Mental Status Exam Appearance: older gentleman w/strong nicely dressed occasionally wears a beanie Eye contact: Fair Behavior: Cooperative, paces hallway, isolates Speech: low volume normal rate and rhythm Mood: Smiles as he paces the hallway Affect: Blunted. Thought process: leaving here Thought Content: leaving Cognition: A/Ox3 Insight: Poor Judgment: Poor Interventions PRN's used: None. Therapeutic interventions: 1:1 assessment, therapeutic communication and active listening, encouraged pt to shower, medication administration/monitoring/education, encouragement to attend groups, monitor Q 15 min for safety. Restraints/seclusion/emergency medication: None Justification of Continued Inpatient Treatment: Pt is gravely disabled on [facility] conservatorship, awaiting conservator and [place] [facility] to find suitable placement.
[2018-11-30 19:53] VITALS: BP 141/72
[2018-11-30] MEDS: amLODIPine 2.5mg tablet PO SCH (21:05)
[2018-11-30] MEDS: risperiDONE 2mg tablet PO SCH (21:07)
[2018-11-30] MEDS: hydrOXYzine 25 MG tablet PO PRN (21:11)
--- NOTE | 2018-12-01 04:13 | NUR ---
Nursing Progress Note Legal hold: LPS conserved Client on involuntary status for GD, Psychosis Report received from ABHISHEK Singletary with use of SBAR Why are they here: 68 year old male with hx of Schizophrenia presents to the ED on a 5150 mental health hold. 5150 was written by a clinician due to the patient being unable to care for himself. Due to the 5150 report that patient was released from longterm yesterday and attempted to go to his sisters house. It was proved that the patient is unable to provide food, residential, or clothing for himself and is having grandiose delusions that he is a "windows consultant going through time travel." Patient has no intentions for suicide or homicide. Per Natasha Robert's note, SUBMARINE WORKER, the patient is conserved by the state and she is working and finding placement for him. Assessment: What happened this shift: Pt ambulating hallway at the beginning of shift. Patient initiated conversation with this group underwriter. With a smile he asked if this group underwriter was "the modoc" and continued to chuckle. When asked about how he was feeling he stated "alright, just ready to go." He continued to explain that he was wanting a family member that lived in the [facility] area to take conservatorship of him, unclear to who the family member is. Patient also explained that the family member had their own home. Patient denies depression, SI, HI. Patient took all medications and requested his PRN Atarax to decrease anxiousness and allow him to get sleep. S/I, H/I: Denies A/VH: Denies ADL's: Independent with some prompting Sleep: Asleep at this time Group attendance: No Were meds taken: Yes Any med S/E: None reported, none observed Mental Status Exam Appearance: Change into pajamas and continues to wear beanie Eye contact: Fair Behavior: Cooperative, paces hallway, isolates Speech: low volume normal rate and rhythm Mood: Smiles as he paces the hallway Affect: Blunted. Thought process: leaving the unit Thought Content: leaving the unit Cognition: A/Ox3 Insight: Poor Judgment: Poor Interventions PRN's used: None. Therapeutic interventions: 1:1 assessment, therapeutic communication and active listening, encouraged pt to shower, medication administration/monitoring/education, encouragement to attend groups, monitor Q 15 min for safety. Restraints/seclusion/emergency medication: None Justification of Continued Inpatient Treatment: Pt is gravely disabled on LPS conservatorship, awaiting conservator and [facility] to find suitable placement.
[2018-12-01 07:42] VITALS: BP 134/63
[2018-12-01] MEDS: lactulose 20gm/30ml cup PO SCH ×2 (08:20→20:27)
[2018-12-01] MEDS: lisinopril 10 MG tablet PO SCH (08:21)
--- NOTE | 2018-12-01 12:02 | NUR ---
Reassessment: Patient continues with 75-100% PO intake meeting nutrient needs. Wt back down to 83 kg, likely previous wt was inaccurate d/t being outlier with bed scale. LBM 11/30. Will continue to follow. Recommendations: 1) Continue with regular diet 2) antihyperlipidemic per MD approval for TG 186 3) Weekly wts Addendum: 12/01/18 at [address] Amended: Links added.
[2018-12-01] MEDS: acetaminophen 325mg tablet PO PRN (13:39)
--- NOTE | 2018-12-01 14:46 | NUR ---
Discharge Planning: Phoned pt's P.G., Heydi Song @ [phone], for update on pt's MediCal status. Ms Song explained they are working on pt's MediCal and some other stuff and it will probably be some time next week before he is ready for placement. Phoned [facility] office and LM asking if they would like this life insurance underwriter to send updated weekly placement notes. Prakash, from [facility] office phoned and LM not to send any updated notes for Aldo Lee at this time as having issues getting his MediCal reinstated. They had a meeting with Eduardo and Karla yesterday-working on the problem and when they figure out how to resolve and his MediCal is reinstated she will notify this life insurance underwriter. Lili Samson, [facility]
[2018-12-01] MEDS: ibuprofen tablet 400 MG TABLET PO SCH (17:30)
--- NOTE | 2018-12-01 18:08 | NUR ---
Client on involuntary status for GD, Psychosis Report received from ABHISHEK Montano with use of SBAR Why are they here: 68 year old male with hx of Schizophrenia presents to the ED on a 5150 mental health hold. 5150 was written by a clinician due to the patient being unable to care for himself. Due to the 5150 report that patient was released from assisted yesterday and attempted to go to his sisters house. It was proved that the patient is unable to provide food, snf, or clothing for himself and is having grandiose delusions that he is a "cable ferry operator going through time travel." Patient has no intentions for suicide or homicide. Per Natasha Robert's note, ONCOLOGY PHYSICIAN ASSISTANT, the patient is conserved by the state and she is working and finding placement for him. Assessment: What happened this shift: Pt sleeping in his bed awoke for assessment and am medications. Pt paced the hallways in his [facility] for most of the morning. He attended afternoon group for 15min. S/I, H/I: Denies A/VH: Denies ADL's: Independent with some prompting Sleep: Napped prior to lunch Group attendance: 15 minutes Were meds taken: Medication compliant Any med S/E: None reported, none observed Mental Status Exam Appearance: older gentleman w/strong nicely dressed occasionally wears a beanie Eye contact: Fair Behavior: Cooperative, paces hallway, isolates Speech: low volume normal rate and rhythm Mood: Smiles as he paces the hallway Affect: Blunted. Thought process: leaving here Thought Content: leaving Cognition: A/Ox3 Insight: Poor Judgment: Poor Interventions PRN's used: None. Therapeutic interventions: 1:1 assessment, therapeutic communication and active listening, encouraged pt to shower, medication administration/monitoring/education, encouragement to attend groups, monitor Q 15 min for safety. Restraints/seclusion/emergency medication: None Justification of Continued Inpatient Treatment: Pt is gravely disabled on [facility] conservatorship, awaiting conservator and [facility] to find suitable placement.
[2018-12-01 19:15] VITALS: BP 118/76
[2018-12-01] MEDS: risperiDONE 2mg tablet PO SCH (20:26)
[2018-12-01] MEDS: amLODIPine 2.5mg tablet PO SCH (20:27)
[2018-12-01] MEDS: hydrOXYzine 25 MG tablet PO PRN (21:34)
--- NOTE | 2018-12-01 23:56 | NUR ---
Client on involuntary status for GD, Psychosis Report received from ABHISHEK Gonzalez with use of SBAR Why are they here: 68 year old male with hx of Schizophrenia presents to the ED on a 5150 mental health hold. 5150 was written by a clinician due to the patient being unable to care for himself. Due to the 5150 report that patient was released from care home yesterday and attempted to go to his sisters house. It was proved that the patient is unable to provide food, long term, or clothing for himself and is having grandiose delusions that he is a "anatomy professor going through time travel." Patient has no intentions for suicide or homicide. Per Natasha Robert's note, SOUP PERSON, the patient is conserved by the state and she is working and finding placement for him. Assessment: What happened this shift: Patient was ambulating at the beginning of shift. When asked how he was doing he stated "fine, just ready to leave, ready to see friends and family." When this nurse asked about his family, asking about brothers and sisters he shared that he has one brother and three sisters but he was talking abot a specific sister, unclear which one, and stated he did not want to "burden her." This nurse asked the patient if he had any children and he explained he has one daughter and one son, both reside in [place]. Patient denied depression, SI, HI. Patient sat in rec room for a while and this nurse noticed a small smile on his face, this nurse jokingly said "I see that smile" causing a much bigger smile. This nurse was talking to his room mate also, and the patient joking back says to his room mate, "she's the green devil today" and began to chuckle. Patient attended group room for snack and went to bed shortly after. S/I, H/I: Denies A/VH: Denies ADL's: Independent with some prompting Sleep: Asleep at this time Group attendance: group room for snack Were meds taken: Yes Any med S/E: None reported, none observed Mental Status Exam Appearance: nicely dressed wears a beanie Eye contact: Fair Behavior: Cooperative, paces hallway, isolates Speech: low volume normal rate and rhythm Mood: Smiles as he paces the hallway Affect: Blunted. Thought process: leaving the unit Thought Content: discharge, being with friends and family Cognition: A/Ox3 Insight: Poor Judgment: Poor Interventions PRN's used: Atarax for some agitation not allowing him to get to sleep, effective. Therapeutic interventions: 1:1 assessment, therapeutic communication and active listening, encouraged pt to shower, medication administration/monitoring/education, encouragement to attend groups, monitor Q 15 min for safety. Restraints/seclusion/emergency medication: None Justification of Continued Inpatient Treatment: Pt is gravely disabled on LPS conservatorship, awaiting conservator and [place] [facility] to find suitable placement.
[2018-12-02] MEDS: ibuprofen tablet 400 MG TABLET PO SCH ×3 (07:47→17:56)
[2018-12-02] MEDS: lactulose 20gm/30ml cup PO SCH ×2 (07:47→20:46)
[2018-12-02] MEDS: lisinopril 10 MG tablet PO SCH (07:52)
[2018-12-02 08:00] VITALS: BP 133/74
--- NOTE | 2018-12-02 17:21 | NUR ---
Nursing Progress Note Legal hold: LPS conserved Client on involuntary status for GD, Psychosis Report received from ABHISHEK Claire with use of SBAR Why are they here: 68 year old male with hx of Schizophrenia presents to the ED on a 5150 mental health hold. 5150 was written by a clinician due to the patient being unable to care for himself. Due to the 5150 report that patient was released from [facility] yesterday and attempted to go to his sisters house. It was proved that the patient is unable to provide food, nursing home, or clothing for himself and is having grandiose delusions that he is a "stores assistant going through time travel." Patient has no intentions for suicide or homicide. Per Natasha Robert's note, CELL ATTENDANT, the patient is conserved by the state and she is working and finding placement for him. Assessment: What happened this shift: Patient is observed pacing the [place] at change of shift. He smiles and states that he is feelin ok. He says that he feels like it will be much quiter around theunit with his roommate gone. He smiles, laughs and says that he doesnt think he can fill in for his roommate because he doesnt talk that much. He reports that he used to talk a lot more often but someone told him he talks too much. He complains of pain in his knees and reports that the motrin is the best medicaiton for relieving his pain. Patient has no needs or complaints throughout the day. S/I, H/I: Denies A/VH: Denies ADL's: Independent Sleep: 7hrs NOC Group attendance: yes Were meds taken: yes Any med S/E: None reported, none observed Mental Status Exam Appearance: clean blue button up shirt, strong and a beenie Eye contact: direct Behavior: friendly and cooperative, paces hallway, isolates Speech: low volume, soft tone, normal rate and rhythm Mood: good Affect: restricted with brightening Thought process: linear Thought Content: no delusional thought content expressed to this RN today Cognition: A/Ox3 Insight: Poor Judgment: Poor Interventions PRN's used: None. Therapeutic interventions: 1:1 therapeutic assessment, maintained safe therapeutic milieu, provided active listening with positive reinforcement, provided medication administration/education/monitoring as needed; Q15 safety checks. Restraints/seclusion/emergency medication: None Justification of Continued Inpatient Treatment: Pt is gravely disabled on LPS conservatorship, awaiting conservator and [place] [facility] to find suitable placement.Therapeutic support and medication management needed to provide stabilization, and prevent decompensation decreasing risk to patient for readmittance to inpatient unit.
[2018-12-02 20:00] VITALS: BP 139/69
[2018-12-02] MEDS: risperiDONE 2mg tablet PO SCH (20:47)
[2018-12-02] MEDS: amLODIPine 2.5mg tablet PO SCH (20:47)
--- NOTE | 2018-12-02 23:14 | NUR ---
Nursing Progress Note Legal hold: LPS conserved Client on involuntary status for GD, Psychosis Report received from Carlos MANN, with use of SBAR Why are they here: 68 year old male with hx of Schizophrenia presents to the ED on a 5150 mental health hold. 5150 was written by a clinician due to the patient being unable to care for himself. Due to the 5150 report that patient was released from custodial yesterday and attempted to go to his sisters house. It was proved that the patient is unable to provide food, detention, or clothing for himself and is having grandiose delusions that he is a "bridge gang worker going through time travel." Patient has no intentions for suicide or homicide. Per Natasha Robert's note, SMOKE JUMPER, the patient is conserved by the state and she is working and finding placement for him. Assessment: What happened this shift: Patient is visible on unit at shift change. As usually the patient is pacing the halls. Pt is cooperative with 1:1 assessment. Pt misses his roommate that was discharge today. Pt anxiously awaiting for his discharge,"I just want to get out of here." "I have a lot of people working on it for me." Pt med compliant, able to make needs known. Pt up for HS snack then retires to bed. S/I, H/I: None reported or observed A/VH: None reported or observed ADL's: Independent Sleep: Currently sleeing with no distress noted. Group attendance: shift lab technician, no group Were meds taken: Yes Any med S/E: None reported, none observed Mental Status Exam Appearance: Clean blue button up shirt, strong and a beanie Eye contact: Good Behavior: Friendly and cooperative, paces hallway, isolates Speech: Low volume, soft tone, normal rate and rhythm Mood: Good Affect: Restricted with brightening Thought process: Linear Thought Content: Discharge Cognition: A/Ox3 Insight: Poor Judgment: Poor Interventions PRN's used: None. Therapeutic interventions: 1:1 therapeutic assessment, maintained safe therapeutic milieu, provided active listening with positive reinforcement, provided medication administration/education/monitoring as needed; Q15 safety checks. Restraints/seclusion/emergency medication: None Justification of Continued Inpatient Treatment: Pt is gravely disabled on LPS conservatorship, awaiting conservator and [facility] to find suitable placement.Therapeutic support and medication management needed to provide stabilization, and prevent decompensation decreasing risk to patient for readmittance to inpatient unit.
[2018-12-03 08:00] VITALS: BP 132/67
[2018-12-03] MEDS: ibuprofen tablet 400 MG TABLET PO SCH ×3 (08:08→17:44)
[2018-12-03] MEDS: lisinopril 10 MG tablet PO SCH (08:09)
[2018-12-03] MEDS: lactulose 20gm/30ml cup PO SCH ×2 (08:09→21:09)
--- NOTE | 2018-12-03 16:06 | NUR ---
Nursing Progress Note Legal hold: LPS conserved Client on involuntary status for GD, Psychosis Report received from ABHISHEK Claire with use of SBAR Why are they here: 68 year old male with hx of Schizophrenia presents to the ED on a 5150 mental health hold. 5150 was written by a clinician due to the patient being unable to care for himself. Due to the 5150 report that patient was released from halfway yesterday and attempted to go to his sisters house. It was proved that the patient is unable to provide food, group home, or clothing for himself and is having grandiose delusions that he is a "flight inspector going through time travel." Patient has no intentions for suicide or homicide. Per Natasha Robert's note, SCRAP CARRIER, the patient is conserved by the state and she is working and finding placement for him. Assessment: What happened this shift: The patient was awake at change of shift. He was up for breakfast and compliant with all medications. he is slightly "down" today due to roommate being discharged yesterday. he continues to pace the hallway. He is eating and taking plenty of fluids. His mood is contented and affect is constricted with brightening. No other changes. S/I, H/I: Denies A/VH: Denies ADL's: Independent Sleep: None Group attendance: No Were meds taken: yes Any med S/E: None reported, none observed Mental Status Exam Appearance: clean and neat Eye contact: direct Behavior: friendly and cooperative, paces hallway, isolates Speech: low volume, soft tone, normal rate and rhythm Mood: good Affect: restricted with brightening Thought process: linear Thought Content: no delusional thought content expressed to this RN today Cognition: A/Ox3 Insight: Poor Judgment: Poor Interventions PRN's used: None. Therapeutic interventions: 1:1 therapeutic assessment, maintained safe therapeutic milieu, provided active listening with positive reinforcement, provided medication administration/education/monitoring as needed; Q15 safety checks. Restraints/seclusion/emergency medication: None Justification of Continued Inpatient Treatment: Pt is gravely disabled on LPS conservatorship, awaiting conservator and [place] [facility] to find suitable placement.Therapeutic support and medication management needed to provide stabilization, and prevent decompensation decreasing risk to patient for readmittance to inpatient unit.
[2018-12-03 20:00] VITALS: BP 159/81
[2018-12-03] MEDS: amLODIPine 2.5mg tablet PO SCH (21:09)
[2018-12-03] MEDS: risperiDONE 2mg tablet PO SCH (21:10)
--- NOTE | 2018-12-04 04:29 | NUR ---
Nursing Progress Note Legal hold: LPS conserved Client on involuntary status for GD, Psychosis Report received from MACKENZIE Gonzalez with use of SBAR Why are they here: 68 year old male with hx of Schizophrenia presents to the ED on a 5150 mental health hold. 5150 was written by a clinician due to the patient being unable to care for himself. Due to the 5150 report that patient was released from nursing home yesterday and attempted to go to his sisters house. It was proved that the patient is unable to provide food, fpc, or clothing for himself and is having grandiose delusions that he is a "vp clinical going through time travel." Patient has no intentions for suicide or homicide. Per Natasha Robert's note, MECHANICAL ENGINEERING SPECIALIST, the patient is conserved by the state and she is working and finding placement for him. Assessment: What happened this shift: This patient is pacing the halls at shift change. Shortly later he retired to his room. This patient presents as relaxed. He states "My day is ok I guess. Walking tires me out but it relaxes me." Patient went to group on days but states "I never have much to say. I'm just burned out, being stuck here." Patient denies S/I or H/I. I'm looking forward to getting out of here, to an apartment. Patient has been medication compliant. He is cooperative with staff. S/I, H/I: Denies A/VH: Denies ADL's: Independent Sleep: None Group attendance: No Were meds taken: yes Any med S/E: None reported, none observed Mental Status Exam Appearance: clean and neat Eye contact: direct Behavior: friendly and cooperative, paces hallway, isolates Speech: low volume, soft tone, normal rate and rhythm Mood: good Affect: restricted with brightening Thought process: linear Thought Content: no delusional thought content expressed to this RN today Cognition: A/Ox3 Insight: Poor Judgment: Poor Interventions PRN's used: None. Therapeutic interventions: 1:1 therapeutic assessment, maintained safe therapeutic milieu, provided active listening with positive reinforcement, provided medication administration/education/monitoring as needed; Q15 safety checks. Restraints/seclusion/emergency medication: None Justification of Continued Inpatient Treatment: Pt is gravely disabled on LPS conservatorship, awaiting conservator and [facility] to find suitable placement.Therapeutic support and medication management needed to provide stabilization, and prevent decompensation decreasing risk to patient for readmittance to inpatient unit.
[2018-12-04 08:00] VITALS: BP 145/71
[2018-12-04] MEDS: ibuprofen tablet 400 MG TABLET PO SCH ×3 (08:00→17:58)
[2018-12-04] MEDS: lactulose 20gm/30ml cup PO SCH ×2 (08:03→20:48)
[2018-12-04] MEDS: lisinopril 10 MG tablet PO SCH (08:03)
--- NOTE | 2018-12-04 16:43 | NUR ---
Nursing Progress Note Legal hold: LPS conserved Client on involuntary status for GD, Psychosis Report received from ABHISHEK Claire with use of SBAR Why are they here: 68 year old male with hx of Schizophrenia presents to the ED on a 5150 mental health hold. 5150 was written by a clinician due to the patient being unable to care for himself. Due to the 5150 report that patient was released from detention yesterday and attempted to go to his sisters house. It was proved that the patient is unable to provide food, fpc, or clothing for himself and is having grandiose delusions that he is a "engineering teacher going through time travel." Patient has no intentions for suicide or homicide. Per Natasha Robert's note, LEGAL BILLER, the patient is conserved by the state and she is working and finding placement for him. Assessment: What happened this shift: The patient was awake at change of shift. He was up for breakfast and compliant with all medications. Patient feels somewhat depressed because his roommate, who was full of life, was discharged and he feels lonely. Patient continues to pace the halls. Patient is pleasant and affect is flat. Patient is pending placement for IMD. S/I, H/I: Denies A/VH: Denies ADL's: Independent Sleep: None Group attendance: No Were meds taken: yes Any med S/E: None reported, none observed Mental Status Exam Appearance: clean and neat Eye contact: direct Behavior: friendly and cooperative, paces hallway, isolates Speech: low volume, soft tone, normal rate and rhythm Mood: good Affect: restricted with brightening Thought process: linear Thought Content: no delusional thought content expressed to this RN today Cognition: A/Ox3 Insight: Poor Judgment: Poor Interventions PRN's used: None. Therapeutic interventions: 1:1 therapeutic assessment, maintained safe therapeutic milieu, provided active listening with positive reinforcement, provided medication administration/education/monitoring as needed; Q15 safety checks. Restraints/seclusion/emergency medication: None Justification of Continued Inpatient Treatment: Pt is gravely disabled on LPS conservatorship, awaiting conservator and [facility] to find suitable placement.Therapeutic support and medication management needed to provide stabilization, and prevent decompensation decreasing risk to patient for readmittance to inpatient unit.
[2018-12-04 19:50] VITALS: BP 155/80
[2018-12-04] MEDS: amLODIPine 2.5mg tablet PO SCH (20:23)
[2018-12-04] MEDS: risperiDONE 2mg tablet PO SCH (20:24)
--- NOTE | 2018-12-04 22:16 | NUR ---
Nursing Progress Note Legal hold: LPS conserved Client on involuntary status for GD, Psychosis Report received from Carlos MANN with use of SBAR Why are they here: 68 year old male with hx of Schizophrenia presents to the ED on a 5150 mental health hold. 5150 was written by a clinician due to the patient being unable to care for himself. Due to the 5150 report that patient was [facility] yesterday and attempted to go to his sisters house. It was proved that the patient is unable to provide food, correction, or clothing for himself and is having grandiose delusions that he is a "welder tool and die going through time travel." Patient has no intentions for suicide or homicide. Per Natasha Robert's note, JUNIOR SYSTEMS ENGINEER, the patient is conserved by the state and she is working and finding placement for him. Assessment: What happened this shift: The patient was awake at change of shift. He was up for breakfast and compliant with all medications. Patient feels somewhat depressed because of being here states he needs to return to work. Patient continues to pace the halls. Patient is pleasant and affect is flat. Patient is pending placement for IMD. S/I, H/I: Denies A/VH: Denies ADL's: Independent Sleep: None Group attendance: No Were meds taken: yes Any med S/E: None reported, none observed Mental Status Exam Appearance: clean and neat Eye contact: direct Behavior: friendly and cooperative, paces hallway, isolates Speech: low volume, soft tone, normal rate and rhythm Mood: good Affect: restricted with brightening Thought process: linear Thought Content: no delusional thought content expressed to this RN today Cognition: A/Ox3 Insight: Poor Judgment: Poor Interventions PRN's used: None. Therapeutic interventions: 1:1 therapeutic assessment, maintained safe therapeutic milieu, provided active listening with positive reinforcement, provided medication administration/education/monitoring as needed; Q15 safety checks. Restraints/seclusion/emergency medication: None Justification of Continued Inpatient Treatment: Pt is gravely disabled on LPS conservatorship, awaiting conservator and [place] [facility] to find suitable placement.Therapeutic support and medication management needed to provide stabilization, and prevent decompensation decreasing risk to patient for readmittance to inpatient unit.
[2018-12-05] MEDS: lactulose 20gm/30ml cup PO SCH ×2 (07:56→20:21)
[2018-12-05] MEDS: lisinopril 10 MG tablet PO SCH (07:57)
[2018-12-05 08:01] VITALS: BP 142/71
[2018-12-05] MEDS: ibuprofen tablet 400 MG TABLET PO SCH ×3 (10:26→18:18)
--- NOTE | 2018-12-05 17:30 | NUR ---
Nursing Progress Note Legal hold: LPS conserved Client on involuntary status for GD, Psychosis Report received from ABHISHEK Claire with use of SBAR Why are they here: 68 year old male with hx of Schizophrenia presents to the ED on a 5150 mental health hold. 5150 was written by a clinician due to the patient being unable to care for himself. Due to the 5150 report that patient was released from shelter yesterday and attempted to go to his sisters house. It was proved that the patient is unable to provide food, senior care, or clothing for himself and is having grandiose delusions that he is a "block mason going through time travel." Patient has no intentions for suicide or homicide. Per Natasha Robert's note, PATTERN ILLUSTRATOR, the patient is conserved by the state and she is working and finding placement for him. Assessment: What happened this shift: The patient was sleeping at change of shift and up for breakfast. Patient compliant with all medications. Patient denies depression today. Patient took a shower and had his clothes washed. Patient continues to pace the halls. Patient is pleasant with a flat flat affect. Patient is pending placement for IMD. S/I, H/I: Denies A/VH: Denies ADL's: Independent Sleep: None Group attendance: yes Were meds taken: yes Any med S/E: None reported, none observed Mental Status Exam Appearance: clean and neat Eye contact: direct Behavior: friendly and cooperative, paces hallway, isolates Speech: low volume, soft tone, normal rate and rhythm Mood: good Affect: restricted with brightening Thought process: linear Thought Content: no delusional thought content expressed to this RN today Cognition: A/Ox3 Insight: Poor Judgment: Poor Interventions PRN's used: None. Therapeutic interventions: 1:1 therapeutic assessment, maintained safe therapeutic milieu, provided active listening with positive reinforcement, provided medication administration/education/monitoring as needed; Q15 safety checks. Restraints/seclusion/emergency medication: None Justification of Continued Inpatient Treatment: Pt is gravely disabled on [facility] conservatorship, awaiting conservator and [place] [facility] to find suitable placement.Therapeutic support and medication management needed to provide stabilization, and prevent decompensation decreasing risk to patient for readmittance to inpatient unit.
[2018-12-05] MEDS: risperiDONE 2mg tablet PO SCH (20:21)
[2018-12-05] MEDS: amLODIPine 2.5mg tablet PO SCH (20:22)
[2018-12-05 20:30] VITALS: BP 157/74
--- NOTE | 2018-12-05 20:53 | NUR ---
Nursing Progress Note Legal hold: LPS conserved Client on involuntary status for GD, Psychosis Report received from ABHISHEK Gonzalez with use of SBAR Why are they here: 68 year old male with hx of Schizophrenia presents to the ED on a 5150 mental health hold. 5150 was written by a clinician due to the patient being unable to care for himself. Due to the 5150 report that patient was released from retirement yesterday and attempted to go to his sisters house. It was proved that the patient is unable to provide food, senior living, or clothing for himself and is having grandiose delusions that he is a "corn press operator going through time travel." Patient has no intentions for suicide or homicide. Per Natasha Robert's note, CHEMIST PHARMACEUTICAL, the patient is conserved by the state and she is working and finding placement for him. Assessment: What happened this shift: The patient was up pacing at change of shift. Patient compliant with all medications. Patient denies depression today. Patient took a shower and had his clothes washed. Patient continues to pace the halls. Patient is pleasant with a flat flat affect. Patient is pending placement for IMD. S/I, H/I: Denies A/VH: Denies ADL's: Independent Sleep: None Group attendance: yes Were meds taken: yes Any med S/E: None reported, none observed Mental Status Exam Appearance: clean and neat Eye contact: direct Behavior: friendly and cooperative, paces hallway, isolates Speech: low volume, soft tone, normal rate and rhythm Mood: good Affect: restricted with brightening Thought process: linear Thought Content: no delusional thought content expressed to this RN today Cognition: A/Ox3 Insight: Poor Judgment: Poor Interventions PRN's used: None. Therapeutic interventions: 1:1 therapeutic assessment, maintained safe therapeutic milieu, provided active listening with positive reinforcement, provided medication administration/education/monitoring as needed; Q15 safety checks. Restraints/seclusion/emergency medication: None Justification of Continued Inpatient Treatment: Pt is gravely disabled on LPS conservatorship, awaiting conservator and [facility] to find suitable placement.Therapeutic support and medication management needed to provide stabilization, and prevent decompensation decreasing risk to patient for readmittance to inpatient unit.
[2018-12-06 07:39] VITALS: BP 141/80
[2018-12-06] MEDS: ibuprofen tablet 400 MG TABLET PO SCH ×3 (07:58→17:52)
[2018-12-06] MEDS: lactulose 20gm/30ml cup PO SCH ×2 (07:58→20:27)
[2018-12-06] MEDS: lisinopril 10 MG tablet PO SCH (08:00)
--- NOTE | 2018-12-06 16:08 | NUR ---
Nursing Progress Note Legal hold: LPS conserved Client on involuntary status for GD, Psychosis Report received from ABHISHEK Claire with use of SBAR Why are they here: 68 year old male with hx of Schizophrenia presents to the ED on a 5150 mental health hold. 5150 was written by a clinician due to the patient being unable to care for himself. Due to the 5150 report that patient was released from group home yesterday and attempted to go to his sisters house. It was proved that the patient is unable to provide food, intermediate, or clothing for himself and is having grandiose delusions that he is a "battery charger tester going through time travel." Patient has no intentions for suicide or homicide. Per Natasha Robert's note, SENIOR TRAINING SPECIALIST, the patient is conserved by the state and she is working and finding placement for him. Assessment: What happened this shift: The patient was sleeping at change of shift and up for breakfast. Patient compliant with all medications. Patient denies depression today. Hospitalist saw patient today. Patient continues to pace the halls. Patient is pleasant with a flat affect. Patient is pending placement for IMD. S/I, H/I: Denies A/VH: Denies ADL's: Independent Sleep: None Group attendance: morning group but paced during afternoon group. Were meds taken: yes Any med S/E: None reported, none observed Mental Status Exam Appearance: clean and neat Eye contact: direct Behavior: friendly and cooperative, paces hallway, isolates Speech: low volume, soft tone, normal rate and rhythm Mood: good Affect: restricted with brightening Thought process: linear Thought Content: no delusional thought content expressed to this RN today Cognition: A/Ox3 Insight: Poor Judgment: Poor Interventions PRN's used: None. Therapeutic interventions: 1:1 therapeutic assessment, maintained safe therapeutic milieu, provided active listening with positive reinforcement, provided medication administration/education/monitoring as needed; Q15 safety checks. Restraints/seclusion/emergency medication: None Justification of Continued Inpatient Treatment: Pt is gravely disabled on LPS conservatorship, awaiting conservator and [facility] to find suitable placement.Therapeutic support and medication management needed to provide stabilization, and prevent decompensation decreasing risk to patient for readmittance to inpatient unit.
[2018-12-06 20:00] VITALS: BP 121/78
[2018-12-06] MEDS: amLODIPine 2.5mg tablet PO SCH (20:27)
[2018-12-06] MEDS: risperiDONE 2mg tablet PO SCH (20:28)
--- NOTE | 2018-12-06 22:32 | NUR ---
Nursing Progress Note Legal hold: LPS conserved Client on involuntary status for GD, Psychosis Report received from ABHISHEK Gonzalez with use of SBAR Why are they here: 68 year old male with hx of Schizophrenia presents to the ED on a 5150 mental health hold. 5150 was written by a clinician due to the patient being unable to care for himself. Due to the 5150 report that patient was released from skilled nursing yesterday and attempted to go to his sisters house. It was proved that the patient is unable to provide food, half-way, or clothing for himself and is having grandiose delusions that he is a "um nurse going through time travel." Patient has no intentions for suicide or homicide. Per Natasha Robert's note, HOUSEPERSON, the patient is conserved by the state and she is working and finding placement for him. Assessment: What happened this shift: The patient was up and pacing at change of shift. Patient compliant with all medications. Patient denies depression today. Hospitalist saw patient today. Patient continues to pace the halls. Patient is pleasant with a flat affect. Patient is pending placement for IMD. S/I, H/I: Denies A/VH: Denies ADL's: Independent Sleep: None Group attendance: morning group but paced during afternoon group. Were meds taken: yes Any med S/E: None reported, none observed Mental Status Exam Appearance: clean and neat Eye contact: direct Behavior: friendly and cooperative, paces hallway, isolates Speech: low volume, soft tone, normal rate and rhythm Mood: good Affect: restricted with brightening Thought process: linear Thought Content: no delusional thought content expressed to this RN today Cognition: A/Ox3 Insight: Poor Judgment: Poor Interventions PRN's used: None. Therapeutic interventions: 1:1 therapeutic assessment, maintained safe therapeutic milieu, provided active listening with positive reinforcement, provided medication administration/education/monitoring as needed; Q15 safety checks. Restraints/seclusion/emergency medication: None Justification of Continued Inpatient Treatment: Pt is gravely disabled on LPS conservatorship, awaiting conservator and [facility] to find suitable placement.Therapeutic support and medication management needed to provide stabilization, and prevent decompensation decreasing risk to patient for readmittance to inpatient unit.
[2018-12-06 22:35] VITALS: BP 122/78
[2018-12-07 07:24] VITALS: BP 126/71
[2018-12-07] MEDS: lactulose 20gm/30ml cup PO SCH ×2 (08:28→20:49)
[2018-12-07] MEDS: lisinopril 10 MG tablet PO SCH (08:28)
[2018-12-07] MEDS: ibuprofen tablet 400 MG TABLET PO SCH ×3 (08:28→18:03)
--- NOTE | 2018-12-07 08:53 | NUR ---
Discharge Planning: Phoned Pt's P.GGriffin, Heydi Song, and left message inquiring to the status of reestablishing pt's MediCal , and if she could please call back w/ an update. Lili Samson, ACSW
--- NOTE | 2018-12-07 16:58 | NUR ---
Nursing Progress Note Legal hold: LPS conserved Client on involuntary status for GD, Psychosis Report received from ABHISHEK Montano with use of SBAR Why are they here: 68 year old male with hx of Schizophrenia presents to the ED on a 5150 mental health hold. 5150 was written by a clinician due to the patient being unable to care for himself. Due to the 5150 report that patient was released from [facility] yesterday and attempted to go to his sisters house. It was proved that the patient is unable to provide food, correction, or clothing for himself and is having grandiose delusions that he is a "tribal judge going through time travel." Patient has no intentions for suicide or homicide. Per Natasha Robert's note, PREPARER, the patient is conserved by the state and she is working and finding placement for him. Assessment: What happened this shift: Patient is up pacing the ellsworth at shift change. When asked, patient states the he is not doing well, he states Im ready to get out of here, Im bored. His affect is flat. He calmly states I dont need to be here any longer. Patient takes all his morning medications without issue and then returns to pacing the ellsworth. After morning meeting patient is told that we are still awaiting for insurance issues to clear up. He is kind and patient about the news. He returns to pacing the ellsworth. S/I, H/I: none reported A/VH: none reported ADL's: Independent Sleep: 7.5 hrs NOC Group attendance: no Were meds taken: yes Any med S/E: None reported, none observed Mental Status Exam Appearance: clean, dressed in own clothing Eye contact: direct Behavior: friendly and cooperative, paces hallway, isolates Speech: low volume, soft tone, normal rate and rhythm Mood: good Affect: restricted with brightening Thought process: linear Thought Content: no delusional thought content expressed to this RN today Cognition: A/Ox3 Insight: Poor Judgment: Poor Interventions PRN's used: None. Therapeutic interventions: 1:1 therapeutic assessment, maintained safe therapeutic milieu, provided active listening with positive reinforcement, provided medication administration/education/monitoring as needed; Q15 safety checks. Restraints/seclusion/emergency medication: None Justification of Continued Inpatient Treatment: Pt is gravely disabled on LPS conservatorship, awaiting conservator and [place] to find suitable placement.Therapeutic support and medication management needed to provide stabilization, and prevent decompensation decreasing risk to patient for readmittance to inpatient unit.
[2018-12-07 20:00] VITALS: BP 152/73
[2018-12-07] MEDS: risperiDONE 2mg tablet PO SCH (20:51)
[2018-12-07] MEDS: amLODIPine 2.5mg tablet PO SCH (20:52)
--- NOTE | 2018-12-08 03:07 | NUR ---
Nursing Progress Note Legal hold: LPS conserved Client on involuntary status for GD, Psychosis Report received from ABHISHEK Singletary with use of SBAR Why are they here: 68 year old male with hx of Schizophrenia presents to the ED on a 5150 mental health hold. 5150 was written by a clinician due to the patient being unable to care for himself. Due to the 5150 report that patient was released from [facility] yesterday and attempted to go to his sisters house. It was proved that the patient is unable to provide food, longterm, or clothing for himself and is having grandiose delusions that he is a "butcher scullion going through time travel." Patient has no intentions for suicide or homicide. Per Natasha Robert's note, BAR MACHINE OPERATOR, the patient is conserved by the state and she is working and finding placement for him. Assessment: What happened this shift: Patient pacing hallway at the beginning of shift. Patient smiling, making eye contact. When asked about his day he stated, "lousy" This aligner typewriter asked what made it lousy and he stated "just ready to get out of here, not much to do." He also expressed his desire to have a cigarette but when asked about the possibility of a nicotine patch he declined and stated they do not work for him. Patient remains cooperative and pleasant, compliant with all medication. Denied SI, HI, depression, A/VH. S/I, H/I: denied A/VH: denied ADL's: Independent Sleep: asleep at this time Group attendance: group room for snack Were meds taken: yes Any med S/E: None reported, none observed Mental Status Exam Appearance: clean, dressed in own clothing Eye contact: direct Behavior: friendly and cooperative, paces hallway, isolates Speech: low volume, soft tone, normal rate and rhythm Mood: good Affect: restricted with brightening Thought process: linear Thought Content: wants to leave the unit Cognition: A/Ox3 Insight: Poor Judgment: Poor Interventions PRN's used: Tylenol for foot pain, effective. Therapeutic interventions: 1:1 therapeutic assessment, maintained safe therapeutic milieu, provided active listening with positive reinforcement, provided medication administration/education/monitoring as needed; Q15 safety checks. Restraints/seclusion/emergency medication: None Justification of Continued Inpatient Treatment: Pt is gravely disabled on LPS conservatorship, awaiting conservator and [employer] to find suitable placement.Therapeutic support and medication management needed to provide stabilization, and prevent decompensation decreasing risk to patient for readmittance to inpatient unit.
[2018-12-08 07:53] VITALS: BP 149/70
[2018-12-08] MEDS: lactulose 20gm/30ml cup PO SCH ×2 (08:15→20:39)
[2018-12-08] MEDS: lisinopril 10 MG tablet PO SCH (08:18)
[2018-12-08] MEDS: ibuprofen tablet 400 MG TABLET PO SCH ×3 (08:18→17:38)
--- NOTE | 2018-12-08 08:53 | NUR ---
Reassessment: Pt PO 75-100% meals meeting needs. LBM 12/06. No nutrition concerns at this time. Recommendations: 1) Continue with regular diet 2) antihyperlipidemic per MD approval for TG 186 3) Weekly wts Addendum: 12/08/18 at [address] Amended: Links added.
--- NOTE | 2018-12-08 14:48 | NUR ---
Nursing Progress Note Legal hold: LPS conserved Client on involuntary status for GD, Psychosis Report received from ABHISHEK Singletary with use of SBAR Why are they here: 68 year old male with hx of Schizophrenia presents to the ED on a 5150 mental health hold. 5150 was written by a clinician due to the patient being unable to care for himself. Due to the 5150 report that patient was released from assisted yesterday and attempted to go to his sisters house. It was proved that the patient is unable to provide food, halfway, or clothing for himself and is having grandiose delusions that he is a "spanish interpreter going through time travel." Patient has no intentions for suicide or homicide. Per Natasha Robert's note, RADIO ELECTRICIAN, the patient is conserved by the state and she is working and finding placement for him. Assessment: What happened this shift: Patient is observed resting at change of shift. He states that he is still just waiting to get off the unit and asks he we can just send him out to the street. Patient is anxious to leave the unit. He takes all his medications without issue. He paces the ellsworth throughout the day. S/I, H/I: denied A/VH: denied ADL's: Independent Sleep: 7.25hrs NOC Group attendance: no Were meds taken: yes Any med S/E: None reported, none observed Mental Status Exam Appearance: clean, dressed in own clothing Eye contact: direct Behavior: friendly and cooperative, paces hallway, isolative Speech: soft tone, normal rate and rhythm Mood: reports not good, wants to leave Affect: restricted with brightening Thought process: linear Thought Content: wants to leave the unit Cognition: A/Ox3 Insight: Poor Judgment: Poor Interventions PRN's used: no Therapeutic interventions: 1:1 therapeutic assessment, maintained safe therapeutic milieu, provided active listening with positive reinforcement, provided medication administration/education/monitoring as needed; Q15 safety checks. Restraints/seclusion/emergency medication: None Justification of Continued Inpatient Treatment: Pt is gravely disabled on LPS conservatorship, awaiting conservator and [facility] to find suitable placement.Therapeutic support and medication management needed to provide stabilization, and prevent decompensation decreasing risk to patient for readmittance to inpatient unit.
[2018-12-08 19:00] VITALS: BP 173/76
[2018-12-08] MEDS: amLODIPine 2.5mg tablet PO SCH (20:30)
[2018-12-08] MEDS: risperiDONE 2mg tablet PO SCH (20:32)
--- NOTE | 2018-12-08 21:18 | NUR ---
Nursing Progress Note Legal hold: LPS conserved Client on involuntary status for GD, Psychosis Report received from ABHISHEK Millan with use of SBAR Why are they here: 68 year old male with hx of Schizophrenia presents to the ED on a 5150 mental health hold. 5150 was written by a clinician due to the patient being unable to care for himself. Due to the 5150 report that patient was released from assisted yesterday and attempted to go to his sisters house. It was proved that the patient is unable to provide food, halfway, or clothing for himself and is having grandiose delusions that he is a "wood strip block floor installer going through time travel." Patient has no intentions for suicide or homicide. Per Natasha Robert's note, RESERVATION AGENT, the patient is conserved by the state and she is working and finding placement for him. Assessment: What happened this shift: Patient ambulating the hallway at the beginning of shift. When asked how he is doing he stated he felt "depressed" adding that he is ready to "get out of here." Patient denied PRN medication and proceeded pacing the ellsworth. Patient expressed his desire to have a cigarette. He denies SI, HI, and A/VH. S/I, H/I: denied A/VH: denied ADL's: Independent Sleep: not able to assess at this time Group attendance: group room for snack Were meds taken: yes Any med S/E: None reported, none observed Mental Status Exam Appearance: clean, dressed in pajamas Eye contact: direct Behavior: friendly and cooperative, paces hallway, isolative Speech: soft tone, normal rate and rhythm Mood: "depressed" Affect: restricted with brightening Thought process: linear Thought Content: wants to leave the unit Cognition: A/Ox3 Insight: Poor Judgment: Poor Interventions PRN's used: no Therapeutic interventions: 1:1 therapeutic assessment, maintained safe therapeutic milieu, provided active listening with positive reinforcement, provided medication administration/education/monitoring as needed; Q15 safety checks. Restraints/seclusion/emergency medication: None Justification of Continued Inpatient Treatment: Pt is gravely disabled on LPS conservatorship, awaiting conservator and [employer] to find suitable placement.Therapeutic support and medication management needed to provide stabilization, and prevent decompensation decreasing risk to patient for readmittance to inpatient unit.
[2018-12-09 08:00] VITALS: BP 147/88
[2018-12-09] MEDS: lactulose 20gm/30ml cup PO SCH ×2 (08:29→20:02)
[2018-12-09] MEDS: lisinopril 10 MG tablet PO SCH (08:30)
[2018-12-09] MEDS: ibuprofen tablet 400 MG TABLET PO SCH ×3 (08:30→17:22)
--- NOTE | 2018-12-09 18:05 | NUR ---
Nursing Progress Note Legal hold: LPS conserved Client on involuntary status for GD, Psychosis Report received from ABHISHEK Claire with use of SBAR Why are they here: 68 year old male with hx of Schizophrenia presents to the ED on a 5150 mental health hold. 5150 was written by a clinician due to the patient being unable to care for himself. Due to the 5150 report that patient was released from shelter yesterday and attempted to go to his sisters house. It was proved that the patient is unable to provide food, retirement, or clothing for himself and is having grandiose delusions that he is a "municipal court judge going through time travel." Patient has no intentions for suicide or homicide. Per Natasha Robert's note, BEAD CUTTER, the patient is conserved by the state and she is working and finding placement for him. Assessment: What happened this shift: Patient is observed sleeping at change of shift. When he wakes he reports that he did not sleep well because his roommate was snoring. He takes his medications without issue. He continues to politely express his upset with still being on the unit. He does well remaining calm and courteous. He states I was homeless and thats why they brought me in here, I dont need this. Is it against the law to be homeless? He paces the ellsworth throughout the day. S/I, H/I: denied A/VH: denied ADL's: Independent Sleep: 7hrs NOC Group attendance: no Were meds taken: yes Any med S/E: None reported, none observed Mental Status Exam Appearance: clean, dressed in own clothing Eye contact: direct Behavior: polite and cooperative, paces hallway, isolative Speech: soft tone, normal rate and rhythm Mood: frustrated Affect: restricted Thought process: linear Thought Content: wants to leave the unit Cognition: A/Ox3 Insight: Poor Judgment: Poor Interventions PRN's used: no Therapeutic interventions: 1:1 therapeutic assessment, maintained safe therapeutic milieu, provided active listening with positive reinforcement, provided medication administration/education/monitoring as needed; Q15 safety checks. Restraints/seclusion/emergency medication: None Justification of Continued Inpatient Treatment: Pt is gravely disabled on [facility] conservatorship, awaiting conservator and [place] [facility] to find suitable placement.Therapeutic support and medication management needed to provide stabilization, and prevent decompensation decreasing risk to patient for readmittance to inpatient unit.
[2018-12-09 19:36] VITALS: BP 112/79
[2018-12-09] MEDS: risperiDONE 2mg tablet PO SCH (20:00)
[2018-12-09] MEDS: amLODIPine 2.5mg tablet PO SCH (20:01)
[2018-12-09] MEDS: acetaminophen 325mg tablet PO PRN (20:10)
--- NOTE | 2018-12-10 01:56 | NUR ---
Nursing Progress Note Legal hold: LPS conserved Client on involuntary status for GD, Psychosis Report received from ABHISHEK Millan with use of SBAR Why are they here: 68 year old male with hx of Schizophrenia presents to the ED on a 5150 mental health hold. 5150 was written by a clinician due to the patient being unable to care for himself. Due to the 5150 report that patient was released from [facility] yesterday and attempted to go to his sisters house. It was proved that the patient is unable to provide food, fdc, or clothing for himself and is having grandiose delusions that he is a "regulator assembler going through time travel." Patient has no intentions for suicide or homicide. Per Natasha Robert's note, FRONT OFFICE HELP, the patient is conserved by the state and she is working and finding placement for him. Assessment: What happened this shift: Patient ambulating the unit. When asked about how his day was he stated "good" but when asked how he was feeling he stated "lousy." This automobile service writer asked him to explain what made him feel lousy and he replied "just want to get out of here." ABHISHEK made arrangements for patients to go outside on the patio but he refused and when staff asked why not he just says "I don't want to" and continued to pace the ellsworth. Patient c/o foot pain and received PRN Tylenol, patient reported effective. Patient went to sleep shortly after snack. He paces the ellsworth throughout the day. S/I, H/I: denied A/VH: denied ADL's: Independent Sleep: asleep at this time Group attendance: no Were meds taken: yes Any med S/E: None reported, none observed Mental Status Exam Appearance: clean, dressed in own clothing Eye contact: direct Behavior: polite and cooperative, paces hallway, isolative Speech: soft tone, normal rate and rhythm Mood: frustrated Affect: restricted Thought process: linear Thought Content: wants to leave the unit Cognition: A/Ox3 Insight: Poor Judgment: Poor Interventions PRN's used: Tylenol for foot pain, effective Therapeutic interventions: 1:1 therapeutic assessment, maintained safe therapeutic milieu, provided active listening with positive reinforcement, provided medication administration/education/monitoring as needed; Q15 safety checks. Restraints/seclusion/emergency medication: None Justification of Continued Inpatient Treatment: Pt is gravely disabled on LPS conservatorship, awaiting conservator and [place] to find suitable placement.Therapeutic support and medication management needed to provide stabilization, and prevent decompensation decreasing risk to patient for readmittance to inpatient unit.
[2018-12-10 07:44] VITALS: BP 153/72
[2018-12-10] MEDS: lactulose 20gm/30ml cup PO SCH ×2 (08:16→21:24)
[2018-12-10] MEDS: lisinopril 10 MG tablet PO SCH (08:16)
[2018-12-10] MEDS: ibuprofen tablet 400 MG TABLET PO SCH ×3 (08:30→18:01)
--- NOTE | 2018-12-10 17:06 | NUR ---
Nursing Progress Note Legal hold: LPS conserved Client on involuntary status for GD, Psychosis Report received from ABHISHEK Claire with use of SBAR Why are they here: 68 year old male with hx of Schizophrenia presents to the ED on a 5150 mental health hold. 5150 was written by a clinician due to the patient being unable to care for himself. Due to the 5150 report that [facility] and attempted to go to his sisters house. It was proved that the patient is unable to provide food, chcf, or clothing for himself and is having grandiose delusions that he is a "arabic linguist going through time travel." Patient has no intentions for suicide or homicide. Per Natasha Robert's note, CLAM GROWER, the patient is conserved by the state and she is working and finding placement for him. Assessment: What happened this shift: Patient continues to spend most of his free time pacing the unit. Patient attends meals but does not go to any groups today. Patient denies auditory hallucinations and minimizes depression; though, he does say being stuck here is making him depressed. Patient denies suicidal thoughts. Patient is calm and cooperative. Patient does not initiate interaction with others. Patient will interact when approached, but affect remains flat. S/I, H/I: denied A/VH: denied ADL's: Independent Sleep: asleep at this time Group attendance: no Were meds taken: yes Any med S/E: None reported, none observed Mental Status Exam Appearance: clean, dressed in own clothing Eye contact: direct Behavior: polite and cooperative, paces hallway, isolative Speech: soft tone, normal rate and rhythm Mood: frustrated Affect: restricted Thought process: linear Thought Content: wants to leave the unit Cognition: A/Ox3 Insight: Poor Judgment: Poor Interventions PRN's used: Tylenol for foot pain, effective Therapeutic interventions: 1:1 therapeutic assessment, maintained safe therapeutic milieu, provided active listening with positive reinforcement, provided medication administration/education/monitoring as needed; Q15 safety checks. Restraints/seclusion/emergency medication: None Justification of Continued Inpatient Treatment: Pt is gravely disabled on LPS conservatorship, awaiting conservator and [place] [facility] to find suitable placement.Therapeutic support and medication management needed to provide stabilization, and prevent decompensation decreasing risk to patient for readmittance to inpatient unit.
[2018-12-10 20:00] VITALS: BP 170/74
[2018-12-10] MEDS: amLODIPine 2.5mg tablet PO SCH (21:24)
[2018-12-10] MEDS: risperiDONE 2mg tablet PO SCH (21:24)
--- NOTE | 2018-12-11 01:22 | NUR ---
Nursing Progress Note Legal hold: LPS conserved Client on involuntary status for GD, Psychosis Report received from MACKENZIE Millan with use of SBAR Why are they here: 68 year old male with hx of Schizophrenia presents to the ED on a 5150 mental health hold. 5150 was written by a clinician due to the patient being unable to care for himself. Due to the 5150 report that patient was released from residential yesterday and attempted to go to his sisters house. It was proved that the patient is unable to provide food, residential, or clothing for himself and is having grandiose delusions that he is a "control systems engineer going through time travel." Patient has no intentions for suicide or homicide. Per Natasha Robert's note, MRB ENGINEER, the patient is conserved by the state and she is working and finding placement for him. Assessment: What happened this shift: Patient is pacing halls after shift change. He denies S/I, H/I, or hallucinations. Patient states he feels aok except for being quite bored. "I can't wait to get out of here. I need something to keep me busy." The patient is medication compliant. He ate his meals. S/I, H/I: Denies. A/VH: Denies ADL's: Independent Sleep: Sleeping well tonight. Group attendance: Did not attend on days. Were meds taken: Yes, patient is medication compliant. Any med S/E: None reported, none observed Mental Status Exam Appearance: Clean and appropriate. Eye contact: Direct. Behavior: Polite and cooperative. He paces and sometimes isolates. Speech: Normal Mood: Frustration with still being in BH. Affect: restricted Thought process: Linear. Thought Content: Patient states he is ready to leave. Cognition: Oriented to person, place, time, and situation. Insight: Poor Judgment: Poor Interventions PRN's used: Tylenol for foot pain, effective Therapeutic interventions: 1:1 therapeutic assessment, maintained safe therapeutic milieu, provided active listening with positive reinforcement, provided medication administration/education/monitoring as needed; Q15 safety checks. Restraints/seclusion/emergency medication: None Justification of Continued Inpatient Treatment: Pt is gravely disabled on [facility] conservatorship, awaiting conservator and [place] [facility] to find suitable placement.Therapeutic support and medication management needed to provide stabilization, and prevent decompensation decreasing risk to patient for readmittance to inpatient unit.
[2018-12-11] MEDS: lactulose 20gm/30ml cup PO SCH ×2 (07:55→20:40)
[2018-12-11] MEDS: lisinopril 10 MG tablet PO SCH (07:55)
[2018-12-11 08:00] VITALS: BP 114/69
[2018-12-11] MEDS: ibuprofen tablet 400 MG TABLET PO SCH ×3 (08:30→17:35)
--- NOTE | 2018-12-11 09:12 | NUR ---
Nursing note: Client was resting at the start of the shift and woke for medications and meal. Client was compliant with medications and meal. Vital signs are stable. Client paced in hallway briefly after breakfast and then returned to his room where he is resting with eyes closed and respirations even and unlabored. No somatic complaints so far this shift.
--- NOTE | 2018-12-11 12:25 | NUR ---
Nursing Progress Note Legal hold: LPS conserved Client on involuntary status for GD, Psychosis Report received from night5 shift RN Why are they here: 68 year old male with hx of Schizophrenia presents to the ED on a 5150 mental health hold. 5150 was written by a clinician due to the patient being unable to care for himself. Due to the 5150 report that patient was released [facility] and attempted to go to his sisters house. It was proved that the patient is unable to provide food, [facility], or clothing for himself and is having grandiose delusions that he is a "pin worker going through time travel." Patient has no intentions for suicide or homicide. Per Natasha Robert's note, TRAVEL DIRECTOR, the patient is conserved by the state and she is working and finding placement for him. Assessment: Client is alert and oriented x 4 and compliant with all aspects of his care. Client was visible on unit and also attended morning group. No somatic complaints as of this writing. Client has very little insight as it pertains to discharge and follow-up but states, " I am ready to get out of here". What happened this shift: Patient is pacing halls after shift change. He denies S/I, H/I, or hallucinations. Patient states he feels aok except for being quite bored. "I can't wait to get out of here. I need something to keep me busy." The patient is medication compliant. He ate his meals. S/I, H/I: Denies. A/VH: Denies ADL's: Independent Sleep: Sleeping well tonight. Group attendance: attended Were meds taken: Yes, patient is medication compliant. Any med S/E: None reported, none observed Mental Status Exam Appearance: Clean and appropriate. Eye contact: Direct. Behavior: Polite and cooperative. He paces and sometimes isolates. Speech: Normal Mood: Frustration with still being in BH. Affect: restricted Thought process: Linear. Thought Content: Patient states he is ready to leave. Cognition: Oriented to person, place, time, and situation. Insight: Poor Judgment: Poor Interventions PRN's used: none Therapeutic interventions: 1:1 therapeutic assessment, maintained safe therapeutic milieu, provided active listening with positive reinforcement, provided medication administration/education/monitoring as needed; Q15 safety checks. Restraints/seclusion/emergency medication: None Justification of Continued Inpatient Treatment: Pt is gravely disabled on LPS conservatorship, awaiting conservator and [place] [facility] to find suitable placement.Therapeutic support and medication management needed to provide stabilization, and prevent decompensation decreasing risk to patient for readmittance to inpatient unit.
[2018-12-11 19:55] VITALS: BP 164/79
[2018-12-11] MEDS: amLODIPine 2.5mg tablet PO SCH (20:41)
[2018-12-11] MEDS: risperiDONE 2mg tablet PO SCH (20:41)
--- NOTE | 2018-12-11 20:59 | NUR ---
DISCHARGE PLANNING: Spoke w/pt's Eduardo Song late on12/08/18 and she said she was waiting to contact one more person as she needed one more piece of information before she could get everything in place for pt. She was also going to reach out to Earlene from [facility]. On 12/08/18 Earlene from [facility] came to this specification writer's office. She needed documents signed but as pt is conserved she needs pt's Public Guardian, Heydi Duncan to sign. She will try to contact Ms. Song. Heydi Song's direct line is [phone] Lili Samson [facility]
--- NOTE | 2018-12-12 02:22 | NUR ---
Nursing Progress Note: Legal hold: LPS conserved Client on involuntary status for GD, psychosis Report received from ABHISHEK Millan with use of SBAR Why are they here: 68 year old male with hx of schizophrenia presents to the ED on a 5150 mental health hold. 5150 was written by a clinician due to the patient being unable to care for himself. Due to the 5150 report that [facility] and attempted to go to his sisters house. It was proved that the patient is unable to provide food, care home, or clothing for himself and is having grandiose delusions that he is a "doweler going through time travel." Patient has no intentions for suicide or homicide. Per Natasha Robert's note, TRAY DRIER, the patient is conserved by the state and she is working and finding placement for him. Assessment What happened this shift: The patient was seen at bedside for 1:1. He had been pacing the halls. The patients doesn't speak much, but does say that he is tired of being here, and wants to move on. The patient continues to isolate himself in his room, laying down on his bed looking at the ceiling or pace halls. He responds to questions, but does not initiate. Continues to wait for housing. S/I, H/I: Denies. A/VH: Denies. Sleep: Asleep since HS med pass. ADL's: Independent. Sometimes needs prompting. Group attendance: No groups at night. Were meds taken: Yes. Any med S/E: None reported or observed Mental Status Exam Appearance: Disheveled, unshaven, wearing own clothes with a Beanie. Eye contact: Good Behavior: Pleasant, cooperative, isolates. Speech: Normal volume, rate and rhythm, poverty of speech Mood: Pleasant Affect: Blunted. Thought process: Linear. Thought Content: Poverty of thought, pt responds when spoken to, but does not initiate Cognition: A&O. Insight: Poor Judgment: Poor Interventions PRN's used: None Therapeutic interventions: 1:1 assessment at the bedside. Provided therapeutic communication and active listening, medication administration/monitoring/education, reality orientation, Q 15 min checks. Restraints/seclusion/emergency medication: None Justification of Continued Inpatient Treatment: Pt is gravely disabled unable to verbalize a plan for food,clothing and care home. Pt is at baseline and awaiting placement.
[2018-12-12] MEDS: lactulose 20gm/30ml cup PO SCH ×2 (07:57→20:28)
[2018-12-12 08:00] VITALS: BP 142/69
[2018-12-12] MEDS: lisinopril 10 MG tablet PO SCH (08:00)
[2018-12-12] MEDS: ibuprofen tablet 400 MG TABLET PO SCH ×3 (08:00→17:10)
--- NOTE | 2018-12-12 15:10 | NUR ---
Nursing Progress Note: Aldo Lee Legal hold: LPS conserved Client on involuntary status for GD, psychosis Report received from ABHISHEK Millan with use of SBAR Why are they here: 68 year old male with hx of schizophrenia presents to the ED on a 5150 mental health hold. 5150 was written by a clinician due to the patient being unable to care for himself. Due to the 5150 report that [facility] was [facility] from [facility] yesterday and attempted to go to his sisters house. It was proved that the patient is unable to provide food, longterm, or clothing for himself and is having grandiose delusions that he is a "shearer operator going through time travel." Patient has no intentions for suicide or homicide. Per Natasha Robert's note, FORENSIC TECHNICIAN, the patient is conserved by the state and she is working and finding placement for him. Assessment What happened this shift: The patient was seen at bedside for 1:1. He then began his daily pacing the halls. The patients doesn't speak much, but does say that he is tired of being here, and wants to move on. The patient continues to isolate himself in his room, laying down on his bed looking at the ceiling or pace halls. He responds to questions, but does not initiate. Continues to wait for housing. S/I, H/I: Denies. A/VH: Denies. Sleep: 8.25. ADL's: Independent. Sometimes needs prompting. Group attendance: No. Were meds taken: Yes. Any med S/E: None reported or observed Mental Status Exam Appearance: Disheveled, unshaven, wearing own clothes with a Beanie. Eye contact: Good Behavior: Pleasant, cooperative, isolates. Speech: Normal volume, rate and rhythm, poverty of speech Mood: Pleasant Affect: Blunted. Thought process: Linear. Thought Content: Poverty of thought, pt responds when spoken to, but does not initiate Cognition: A&O. Insight: Poor Judgment: Poor Interventions PRN's used: None Therapeutic interventions: 1:1 assessment at the bedside. Provided therapeutic communication and active listening, medication administration/monitoring/education, reality orientation, Q 15 min checks. Restraints/seclusion/emergency medication: None Justification of Continued Inpatient Treatment: Pt is gravely disabled unable to verbalize a plan for food,clothing and longterm. Pt is at baseline and awaiting placement,
[2018-12-12] MEDS: amLODIPine 2.5mg tablet PO SCH (20:29)
[2018-12-12] MEDS: risperiDONE 2mg tablet PO SCH (20:29)
[2018-12-12 20:42] VITALS: BP 131/78
--- NOTE | 2018-12-13 01:39 | NUR ---
Nursing Progress Note: Legal hold: LPS conserved Client on involuntary status for GD, psychosis Report received from ABHISHEK Millan with use of SBAR Why are they here: 68 year old male with hx of schizophrenia presents to the ED on a 5150 mental health hold. 5150 was written by a clinician due to the patient being unable to care for himself. Due to the 5150 report that patient was released from skilled nursing yesterday and attempted to go to his sisters house. It was proved that the patient is unable to provide food, alf, or clothing for himself and is having grandiose delusions that he is a "independent living advisor going through time travel." Patient has no intentions for suicide or homicide. Per Natasha Robert's note, MINE SUPERVISOR, the patient is conserved by the state and she is working and finding placement for him. Assessment What happened this shift: The patient continues to spend time sitting in his room looking out the windows or staring at the ceiling. If he's not in his room, he can be seen pacing the halls. "I just want to leave, I been here too long." He continues to answer questions, but will not initiate conversation. He's waiting for placement. S/I, H/I: Denies. A/VH: Denies. Sleep: Asleep since HS med pass. ADL's: Independent. Sometimes needs prompting. Group attendance: No groups at night. Were meds taken: Yes. Any med S/E: None reported or observed Mental Status Exam Appearance: Disheveled, unshaven, wearing own clothes with a Beanie. Eye contact: Good Behavior: Pleasant, cooperative, isolates. Speech: Normal volume, rate and rhythm, poverty of speech Mood: Pleasant Affect: Blunted. Thought process: Linear. Thought Content: Poverty of thought, pt responds when spoken to, but does not initiate Cognition: A&O. Insight: Poor Judgment: Poor Interventions PRN's used: None Therapeutic interventions: 1:1 assessment at the bedside. Provided therapeutic communication and active listening, medication administration/monitoring/education, reality orientation, Q 15 min checks. Restraints/seclusion/emergency medication: None Justification of Continued Inpatient Treatment: Pt is gravely disabled unable to verbalize a plan for food,clothing and alf. Pt is at baseline and awaiting placement.
[2018-12-13] MEDS: lactulose 20gm/30ml cup PO SCH ×2 (07:36→20:14)
[2018-12-13] MEDS: ibuprofen tablet 400 MG TABLET PO SCH ×3 (07:37→17:04)
[2018-12-13] MEDS: lisinopril 10 MG tablet PO SCH (07:37)
[2018-12-13 08:20] VITALS: BP 144/81
--- NOTE | 2018-12-13 15:49 | NUR ---
Nursing Progress Note: Aldo Lee Legal hold: LPS conserved Client on involuntary status for GD, psychosis Report received from ABHISHEK Millan with use of SBAR Why are they here: 68 year old male with hx of schizophrenia presents to the ED on a 5150 mental health hold. 5150 was written by a clinician due to the patient being unable to care for himself. Due to the 5150 report that patient was released from alf yesterday and attempted to go to his sisters house. It was proved that the patient is unable to provide food, usp, or clothing for himself and is having grandiose delusions that he is a "aircraft ordnance systems mechanic going through time travel." Patient has no intentions for suicide or homicide. Per Natasha Robert's note, DRESSMAKER GARMENT FITTER, the patient is conserved by the state and she is working and finding placement for him. Assessment What happened this shift: Patient sleeping at change of shift. Compliant with medication. Seen briefly pacing the halls, then returned to bed. "I may have to hurt someone to let me out", said with a grin. While frustrated with his delayed dischaged, does verbalize understanding that the staff are working diligently to discharge him to an appropriate, safe facility. S/I, H/I: Denies. A/VH: Denies. Sleep: 8.5 ADL's: Independent. Sometimes needs prompting. Group attendance: No Were meds taken: Yes. Any med S/E: None reported or observed Mental Status Exam Appearance: Disheveled, unshaven, wearing own clothes with a Beanie. Eye contact: Good Behavior: Pleasant, cooperative, isolates. Speech: Normal volume, rate and rhythm, poverty of speech Mood: Pleasant Affect: Blunted. Thought process: Linear. Thought Content: Poverty of thought, pt responds when spoken to, but does not initiate Cognition: A&O. Insight: Poor Judgment: Poor Interventions PRN's used: None Therapeutic interventions: 1:1 assessment at the bedside. Provided therapeutic communication and active listening, medication administration/monitoring/education, reality orientation, Q 15 min checks. Restraints/seclusion/emergency medication: None Justification of Continued Inpatient Treatment: Pt is gravely disabled unable to verbalize a plan for food,clothing and usp. Pt is at baseline and awaiting placement.
[2018-12-13] MEDS: amLODIPine 2.5mg tablet PO SCH (20:14)
[2018-12-13] MEDS: risperiDONE 2mg tablet PO SCH (20:14)
[2018-12-13 20:50] VITALS: BP 137/73
--- NOTE | 2018-12-14 01:25 | NUR ---
Nursing Progress Note: Legal hold: LPS conserved Client on involuntary status for GD, psychosis Report received from ABHISHEK Millan with use of SBAR Why are they here: 68 year old male with hx of schizophrenia presents to the ED on a 5150 mental health hold. 5150 was written by a clinician due to the patient being unable to care for himself. Due to the 5150 report that patient was released from senior living yesterday and attempted to go to his sisters house. It was proved that the patient is unable to provide food, care home, or clothing for himself and is having grandiose delusions that he is a "bridal consultant going through time travel." Patient has no intentions for suicide or homicide. Per Natasha Robert's note, PUPIL PERSONNEL SERVICES DIRECTOR, the patient is conserved by the state and she is working and finding placement for him. Assessment What happened this shift: The patient continues to spend time sitting in his room looking out the windows or staring at the ceiling. If he's not in his room, he can be seen pacing the halls. "I just want to leave, I been here too long." He continues to answer questions, but will not initiate conversation. He's waiting for placement. S/I, H/I: Denies. A/VH: Denies. Sleep: Asleep since HS med pass. ADL's: Independent. Sometimes needs prompting. Group attendance: No groups at night. Were meds taken: Yes. Any med S/E: None reported or observed Mental Status Exam Appearance: Disheveled, unshaven, wearing own clothes with a Beanie. Eye contact: Good Behavior: Pleasant, cooperative, isolates. Speech: Normal volume, rate and rhythm, poverty of speech Mood: Pleasant Affect: Blunted. Thought process: Linear. Thought Content: Poverty of thought, pt responds when spoken to, but does not initiate Cognition: A&O. Insight: Poor Judgment: Poor Interventions PRN's used: None Therapeutic interventions: 1:1 assessment at the bedside. Provided therapeutic communication and active listening, medication administration/monitoring/education, reality orientation, Q 15 min checks. Restraints/seclusion/emergency medication: None Justification of Continued Inpatient Treatment: Pt is gravely disabled unable to verbalize a plan for food,clothing and care home. Pt is at baseline and awaiting placement.
[2018-12-14 07:32] VITALS: BP 142/67
[2018-12-14] MEDS: lisinopril 10 MG tablet PO SCH (07:56)
[2018-12-14] MEDS: ibuprofen tablet 400 MG TABLET PO SCH ×3 (07:56→17:49)
[2018-12-14] MEDS: lactulose 20gm/30ml cup PO SCH ×2 (07:56→21:07)
--- NOTE | 2018-12-14 12:08 | NUR ---
Nursing Progress Note: Legal hold: LPS conserved Client on involuntary status for GD, psychosis Report received from ABHISHEK Montano with use of SBAR Why are they here: 68 year old male with hx of schizophrenia presents to the ED on a 5150 mental health hold. 5150 was written by a clinician due to the patient being unable to care for himself. Due to the 5150 report that [facility] was [facility] yesterday and attempted to go to his sisters house. It was proved that the patient is unable to provide food, mcfp, or clothing for himself and is having grandiose delusions that he is a "housing inspector going through time travel." Patient has no intentions for suicide or homicide. Per Natasha Robert's note, CANCER CENTER DIRECTOR, the patient is conserved by the state and she is working and finding placement for him. Assessment What happened this shift: Pt up for breakfast, pleasant and cooperative. Pt denies depression, anxiety, SI/HI/AH/VH. No delusional statements made. Pt states, "I'm just waitin' to get outta here." S/I, H/I: Pt denies A/VH: Pt denies Sleep: Pt slept 7.5 hours per noc shift report. ADL's: Independent, sometimes needs prompting for showers. Group attendance: Declined to attend am group today. Were meds taken: Yes Any med S/E: None reported or observed Mental Status Exam Appearance: Clean dressed in tate pants, red shirt and a tate beanie Eye contact: Good Behavior: Pleasant, cooperative, quiet, paces in the [place] with his hands in his front pant pockets, mostly isolative to self though pleasant during interactions. Speech: Normal volume, rate and rhythm, poverty of speech Mood: Pleasant Affect: Blunted. Thought process: Linear. Thought Content: Focused on discharge, waiting to get out of here. Cognition: A&O 4 Insight: Poor Judgment: Fair Interventions PRN's used: None Therapeutic interventions: 1:1 assessment, therapeutic conversation, medication administration/monitoring/education, encouragement to perfom personal hygiene, encouragement to attend groups, reality orientation, Q 15 min safety checks. Restraints/seclusion/emergency medication: None Justification of Continued Inpatient Treatment: Pt is gravely disabled unable to verbalize a plan for food,clothing and mcfp. Pt is at baseline and awaiting placement.
--- NOTE | 2018-12-14 17:32 | NUR ---
DISCHARGE PLANNING: Deena, from [facility], phoned to notify pt's MediCal had just been activated and if this customs entry writer could fax over updated pt placement pkt. Faxed updated patient placement packet to [facility], after fax was completed, phoned TAD office and Gricelda confirmed they did receive pt's placement pkt. [facility]ili Samson[facility]
[2018-12-14 20:00] VITALS: BP 142/76
[2018-12-14] MEDS: risperiDONE 2mg tablet PO SCH (21:08)
[2018-12-14] MEDS: amLODIPine 2.5mg tablet PO SCH (21:08)
--- NOTE | 2018-12-15 02:16 | NUR ---
Nursing Progress Note: Legal hold: LPS Client on involuntary status for GD Report received from nurse with use of SBAR: MACKENZIE Singletary Why are they here: Pt. has a hx of Schizophrenia presents to the ED on a 5150 mental health hold. 5150 was written by a clinician due to the patient being unable to care for himself. Due to the 5150 report that patient was released from prison yesterday and attempted to go to his sisters house. It was proved that the patient is unable to provide food, fpc, or clothing for himself and is having grandiose delusions that he is a "privacy officer going through time travel." Patient has no intentions for suicide or homicide. Per Natasha Robert's note, SCHOOL RESOURCE OFFICER, the patient is conserved by the state and she is working and finding placement for him. Assessment What has happened this shift: Pt. up pacing the [place] at the beginning of the shift, he continues to do so throughout the shift. 1:1 completed at bedside, pt. presents as cooperative, restless, and somewhat guarded. He continues to deny any H/A, and does not appear to be responding to internal stimuli. No delusional statements made this shift. When questioned by this radio script writer in regards to any depression or anxiety, pt. denies, states, "I just want to get out of here. They can put me out on the streets if they have to." This radio script writer assures pt. that the social workers continue to work on his placement. He smiles and reports understanding. S/I, H/I: N/A A/VH: Denies, and does not appear to be responding to internal stimuli. Sleep: Reports he has been sleeping well ADL's: Independent Group attendance: Reports he attends groups sometimes, but he has been here for so long that a lot of the material he has already heard Were meds taken: Yes Any med S/E: None Mental Status Exam Appearance: Neat, dressed appropriately Eye contact: Good Behavior: Cooperative, restless, slightly guarded Speech: WNL, minimal, responds only to questions Mood: Pleasant Affect: Blunted, however animates with conversation Thought process: Poverty of thought Thought Content: Preoccupation with desire to discharge Cognition: A&O X4 Insight: Fair Judgment: Fair Interventions PRN's used: None Therapeutic interventions: Maintained a safe and therapeutic environment, provided clear and simple instructions, reoriented to reality as needed, encouraged independent performance of ADLs, and maintained Q 15 min safety checks. Restraints/seclusion/emergency medication: N/A Justification of Continued Inpatient Treatment: Pt. is unable to provide for his own food, clothing, or fpc and is awaiting placement by [facility].
[2018-12-15] MEDS: lactulose 20gm/30ml cup PO SCH ×2 (07:25→20:49)
[2018-12-15] MEDS: lisinopril 10 MG tablet PO SCH (07:26)
[2018-12-15 08:00] VITALS: BP 151/73
[2018-12-15] MEDS: ibuprofen tablet 400 MG TABLET PO SCH ×3 (08:35→18:10)
--- NOTE | 2018-12-15 12:02 | NUR ---
Reassessment: Pt continues meeting nutrient needs with documented 75-100% PO intake on regular diet. [facility] 12/14. No nutrition diagnosis at this time. Will continue to follow. Recommendations: 1) Continue with regular diet 2) antihyperlipidemic per MD approval for TG 186 3) Weekly wts Addendum: 12/15/18 at [address] Amended: Links added.
--- NOTE | 2018-12-15 14:04 | NUR ---
Nursing Progress Note: Aldo Lee Legal hold: LPS Client on involuntary status for GD Report received from [facility] nurse with use of SBAR: Why are they here: Pt. has a hx of Schizophrenia presents to the ED on a 5150 mental health hold. 5150 was written by a clinician due to the patient being unable to care for himself. Due to the 5150 report that patient was released from nursing home yesterday and attempted to go to his sisters house. It was proved that the patient is unable to provide food, care home, or clothing for himself and is having grandiose delusions that he is a "superior court judge going through time travel." Patient has no intentions for suicide or homicide. Per Natasha Robert's note, SOCIAL SECURITY ASSESSOR, the patient is conserved by the state and she is working and finding placement for him. Assessment What has happened this shift: Client was resting at start of this shift. Client slept for 7.5 hours. Awoke for vitals and medications and was compliant with both. No c/o pain or problems this shift. No delusional statements as of this writing. Client stated, " I am ready to leave here soon, maybe today?". Ate well for breakfast and walking in [address]. Client currently waiting for placement. Client stated, "I want to smoke cigarettes so I need to go". Majority of shift has been spent walking in hallway. S/I, H/I: N/A A/VH: Denies, and does not appear to be responding to internal stimuli. Sleep: Reports he has been sleeping well ADL's: Independent Group attendance: Came late to group but participated. Were meds taken: Yes meds S/E: none noted Mental Status Exam Appearance: Neat, dressed appropriately Eye contact: Good Behavior: Cooperative, restless, slightly guarded Speech: WNL, minimal, responds only to questions Mood: Pleasant Affect: Blunted, however animates with conversation Thought process: Poverty of thought Thought Content: Preoccupation with desire to discharge Cognition: A&O X4 Insight: Fair Judgment: Fair Interventions PRN's used: None Therapeutic interventions: Maintained a safe and therapeutic environment, provided clear and simple instructions, reoriented to reality as needed, encouraged independent performance of ADLs, and maintained Q 15 min safety checks. Restraints/seclusion/emergency medication: N/A Justification of Continued Inpatient Treatment: Pt. is unable to provide for his own food, clothing, or care home and is awaiting placement by [facility].
[2018-12-15 19:51] VITALS: BP 130/74
[2018-12-15] MEDS: amLODIPine 2.5mg tablet PO SCH (20:49)
[2018-12-15] MEDS: risperiDONE 2mg tablet PO SCH (20:49)
--- NOTE | 2018-12-15 23:18 | NUR ---
Nursing Progress Note: Legal hold: LPS Client on involuntary status for GD Report received from nurse with use of SBAR: MACKENZIE Gonzalez Why are they here: Pt. has a hx of Schizophrenia presents to the ED on a 5150 mental health hold. 5150 was written by a clinician due to the patient being unable to care for himself. Due to the 5150 report that patient was released from long term yesterday and attempted to go to his sisters house. It was proved that the patient is unable to provide food, halfway, or clothing for himself and is having grandiose delusions that he is a "channel director going through time travel." Patient has no intentions for suicide or homicide. Per Natasha Robert's note, AREA REPRESENTATIVE, the patient is conserved by the state and she is working and finding placement for him. Assessment What has happened this shift: Pt. up pacing the [place] at the beginning of the shift and throughout the shift, attends HS snack. 1:1 completed at bedside, pt. continues to present as cooperative, restless, and somewhat guarded. He does smile and joke with this flex o writer operator at times, however at other times appears frustrated about the fact that he is still awaiting discharge placement. This flex o writer operator assures pt. that staff continue to work on his discharge plans, however when questioned by this flex o writer operator regarding where he would like to discharge to, pt. begins making delusional statements. He states, "I want to go to [place], [place]. That's where the [employer] I work for is. I could stay at the yard there." S/I, H/I: N/A A/VH: Denies, and does not appear to be responding to internal stimuli. Sleep: Reports he has been sleeping well ADL's: Independent Group attendance: Reports he attends groups sometimes Were meds taken: Yes Any med S/E: None Mental Status Exam Appearance: Neat, dressed appropriately Eye contact: Good Behavior: Cooperative, restless, slightly guarded Speech: WNL, minimal, responds only to questions Mood: Pleasant Affect: Blunted, however animates with conversation Thought process: Poverty of thought Thought Content: Preoccupation with desire to discharge and is pleasantly delusional Cognition: A&O X4 Insight: Fair Judgment: Fair Interventions PRN's used: None Therapeutic interventions: Maintained a safe and therapeutic environment, provided clear and simple instructions, reoriented to reality as needed, encouraged independent performance of ADLs, provided positive encouragement, and maintained Q 15 min safety checks. Restraints/seclusion/emergency medication: N/A Justification of Continued Inpatient Treatment: Pt. is unable to provide for his own food, clothing, or halfway and is awaiting placement at an [facility].
[2018-12-16 08:13] VITALS: BP 131/73
[2018-12-16 08:19] VITALS: BP 131/73
[2018-12-16] MEDS: ibuprofen tablet 400 MG TABLET PO SCH ×3 (08:20→17:46)
[2018-12-16] MEDS: lactulose 20gm/30ml cup PO SCH ×2 (08:20→21:16)
[2018-12-16] MEDS: lisinopril 10 MG tablet PO SCH (08:21)
--- NOTE | 2018-12-16 16:14 | NUR ---
Nursing Progress Note: Legal hold: [facility] conservatorship Client on involuntary status for GD Report received from nurse with use of SBAR: ABHISHEK Dimas Why are they here: Pt. has a hx of Schizophrenia presents to the ED on a 5150 mental health hold. 5150 was written by a clinician due to the patient being unable to care for himself. Per the 5150 report the patient was released from group home the day before coming to the ED and attempted to go to his sister's house. The patient is unable to provide food, fpc, or clothing for himself and was having grandiose delusions that he was a "grounds and nursery specialist going through time travel." Patient has no intentions for suicide or homicide. Per Natasha Robert's note, STAINED GLASS GLAZIER HELPER, the patient is conserved by the state and she is working and finding placement for him. Assessment What has happened this shift: The pt was sleeping at the change of shift. He was compliant with medication administration. Pleasant and cooperative with assessment. His affect is constricted. When asked how things are going, he stated, "fine." He denied depression, SI, HI, and A/V H. He indicated he was anxious saying, "I want to get out of here." He talked about walking 20 miles to his sister's house in [place]. He said his vehicle is parked there. He frequently paced the halls. S/I, H/I: Denies A/VH: Denies. Sleep: No issues reported ADL's: Independent Group attendance: No Were meds taken: Yes Any med S/E: None noted or reported Mental Status Exam Appearance: Neat Eye contact: Direct Behavior: Appropriate, cooperative Speech: Normal rate and rhythm, minimal communication Mood: Anxious to leave Affect: Constricted Thought process: Poverty of thought Thought Content: Wants to leave and go live with his sister. Cognition: A&O X4 Insight: Fair Judgment: Fair Interventions PRN's used: None Therapeutic interventions: Performed 1:1 therapeutic assessment, active listening, maintained a safe and therapeutic environment, provided clear and simple instructions, encouraged independent performance of ADLs, provided positive encouragement, and maintained Q 15 min safety checks. Restraints/seclusion/emergency medication: N/A Justification of Continued Inpatient Treatment: Pt. is unable to provide for his own food, clothing, or fpc and is awaiting placement at an D.
[2018-12-16 20:00] VITALS: BP 158/74
[2018-12-16] MEDS: amLODIPine 2.5mg tablet PO SCH (21:16)
[2018-12-16] MEDS: risperiDONE 2mg tablet PO SCH (21:16)
--- NOTE | 2018-12-16 23:08 | NUR ---
Nursing Progress Note: Legal hold: LPS Client on involuntary status for GD Report received from nurse with use of SBAR: MACKENZIE Gonzalez Why are they here: Pt. has a hx of Schizophrenia presents to the ED on a 5150 mental health hold. 5150 was written by a clinician due to the patient being unable to care for himself. Due to the 5150 report that patient was released from nursing home yesterday and attempted to go to his sisters house. It was proved that the patient is unable to provide food, longterm, or clothing for himself and is having grandiose delusions that he is a "java j2ee application developer going through time travel." Patient has no intentions for suicide or homicide. Per Natasha Robert's note, SAFETY NET MAKER, the patient is conserved by the state and she is working and finding placement for him. Assessment What has happened this shift: Pt. up pacing the [place] at the beginning of the shift and throughout the shift, attends HS snack. 1:1 completed at bedside, pt. continues to present as cooperative, restless, and somewhat guarded. He does smile and interact intermittently with staff, and states his mood is "Ok." No delusional statements made this shift, however pt. continues to be somewhat frustrated regarding awaiting discharge placement. He reports that he does not want to go to an IMD or [facility], states, "I'd rather just be put outside and let go. I can find my own way around." S/I, H/I: N/A A/VH: Denies, and does not appear to be responding to internal stimuli. Sleep: Reports he has been sleeping well ADL's: Independent Group attendance: Reports he attends groups sometimes Were meds taken: Yes Any med S/E: None Mental Status Exam Appearance: Neat, dressed appropriately, and continues to wear beanie on head Eye contact: Good Behavior: Cooperative, restless, slightly guarded Speech: WNL, minimal, responds only to questions Mood: Pleasant Affect: Blunted, however animates with conversation Thought process: Poverty of thought Thought Content: Preoccupation with desire to discharge and is pleasantly delusional at times Cognition: A&O X4 Insight: Fair Judgment: Fair Interventions PRN's used: None Therapeutic interventions: Maintained a safe and therapeutic environment, provided clear and simple instructions, reoriented to reality as needed, encouraged independent performance of ADLs, provided positive encouragement, and maintained Q 15 min safety checks. Restraints/seclusion/emergency medication: N/A Justification of Continued Inpatient Treatment: Pt. is unable to provide for his own food, clothing, or longterm and is awaiting placement by Guardian.
[2018-12-17] MEDS: lisinopril 10 MG tablet PO SCH (07:54)
[2018-12-17] MEDS: lactulose 20gm/30ml cup PO SCH ×2 (07:55→20:24)
[2018-12-17 08:00] VITALS: BP 136/69
[2018-12-17] MEDS: ibuprofen tablet 400 MG TABLET PO SCH ×3 (08:24→18:02)
--- NOTE | 2018-12-17 14:07 | NUR ---
Nursing Progress Note: Legal hold: [facility] status for GD Report received from nurse ABHISHEK Long with use of SBAR Why are they here: Pt. has a hx of Schizophrenia presents to the ED on a 5150 for GD. Per written 5150 patient was released from [facility] the day before coming to the ER. The patient is unable to provide food, custodial, or clothing for himself and was having grandiose delusions that he was a "harvesting contractor going through time travel." Patient has no intentions of suicide or homicide. Per Natasha Robert's note, FAUCETS ASSEMBLER, the patient is conserved by the state and she is working at finding placement for him. Assessment What has happened this shift: Pt up pacing the halls throughout most of the shift. He ate all his meals in the group room. He is compliant w/treatment taking his medications as prescribed. He reports he slept "restlessly" but did not want to do anything about that. He also continues to share he is tired of being in this place. Pt is communicating better advocating for his needs as needed. Requires prompts for showers and self care. S/I, H/I: Denies A/VH: Denies. Sleep: Reports "restless last night." Did not nap today ADL's: Independent Group attendance: No Were Meds taken: Yes Any med S/E: None noted or reported Mental Status Exam Appearance: Stains on clothing same clothing as yesterday Eye contact: Direct Behavior: Appropriate, cooperative Speech: Normal rate and rhythm, minimal communication Mood: Anxious to leave Affect: Constricted Thought process: Poverty of thought Thought Content: Wants to leave and go live with his sister. Cognition: A&O X4 Insight: Fair Judgment: Fair Interventions PRN's used: None Therapeutic interventions: Performed 1:1 therapeutic assessment, provided clear and simple instructions, encouraged independent performance of ADLs, maintained Q 15 min safety checks. Restraints/seclusion/emergency medication: N/A Justification of Continued Inpatient Treatment: Pt. is unable to provide for his own food, clothing, or custodial and is awaiting placement at an IMD.
[2018-12-17 20:00] VITALS: BP 125/54
[2018-12-17] MEDS: amLODIPine 2.5mg tablet PO SCH (20:24)
[2018-12-17] MEDS: risperiDONE 2mg tablet PO SCH (20:24)
--- NOTE | 2018-12-18 02:07 | NUR ---
Nursing Progress Note: Legal hold: [facility] conserved Client on involuntary status for GD, psychosis Report received from ABHISHEK Gonzalez with use of SBAR Why are they here: 68 year old male with hx of schizophrenia presents to the ED on a 5150 mental health hold. 5150 was written by a clinician due to the patient being unable to care for himself. Due to the 5150 report that patient was released from alf yesterday and attempted to go to his sisters house. It was proved that the patient is unable to provide food, group home, or clothing for himself and is having grandiose delusions that he is a "signal circuit designer going through time travel." Patient has no intentions for suicide or homicide. Per Natasha Robert's note, SKIRT TRIMMER, the patient is conserved by the state and she is working and finding placement for him. Assessment: What happened this shift: Pt paces the hallway at shift change, smiling and keeping to himself. He is pleasant on approach and cooperative with physical assessment. Stable Cleaner encouraged him to take a shower tonight but he politely declined. PT did change his pants. He denies feeling depressed at this time. He also denies SI/HI/AH/VH. S/I, H/I: "no" A/VH: "no" Sleep: see sleep assessment notation ADL's: Independent. Pt. needs prompting. Group attendance: caustic cresylate shift superintendent, no group Were meds taken: Medication compliant Any med S/E: None reported or observed Mental Status Exam Appearance: Clean, wearing street clothes and a beanie Eye contact: Fair Behavior: Pleasant, paces the halls Speech: Clear, poverty of speech Mood: Pleasant Affect: Blunted, with some brightening Thought process: Bored, trying to keep self busy with music Thought Content: Poverty of thought, will engage if spoken to first Cognition: A&Ox 2. Insight: Poor Judgment: Poor Interventions PRN's used: Ativan x1 Therapeutic interventions: 1:1 assessment at the bedside. Provided therapeutic communication and active listening, medication administration/monitoring/education, reality orientation, Q 15 min checks. Restraints/seclusion/emergency medication: None Justification of Continued Inpatient Treatment: Pt is gravely disabled unable to verbalize a plan for food,clothing and group home. Pt is at baseline and awaiting placement.
[2018-12-18 08:00] VITALS: BP 143/68
[2018-12-18] MEDS: lactulose 20gm/30ml cup PO SCH ×2 (08:00→20:25)
[2018-12-18] MEDS: lisinopril 10 MG tablet PO SCH (08:05)
[2018-12-18] MEDS: ibuprofen tablet 400 MG TABLET PO SCH ×3 (09:18→17:20)
--- NOTE | 2018-12-18 15:47 | NUR ---
Nursing Progress Note: Legal hold: [facility] Client [facility] status for GD Report received from nurse ABHISHEK Long with use of SBAR Why are they here: Pt. has a hx of Schizophrenia presents to the ED on a 5150 for GD. Per written 5150 patient was released from alf the day before coming to the ER. The patient is unable to provide food, skilled nursing, or clothing for himself and was having grandiose delusions that he was a "international sourcing manager going through time travel." Patient has no intentions of suicide or homicide. Per Natasha Robert's note, HARD ROCK MINER, the patient is conserved by the state and she is working at finding placement for him. Assessment What has happened this shift: Pt paces the hallways throughout the day. He took all his medications as prescribed. He shared with this fiction writer that he would "like to go back to live with his sister." He also shared he use to have an apartment and would like to live alone again. He states he should not be here. S/I, H/I: Denies A/VH: Denies. Sleep: Up all shift ADL's: Independent; requires prompting Group attendance: No Were Meds taken: Yes Any med S/E: None noted or reported Mental Status Exam Appearance: Changed his clothes today Eye contact: Direct Behavior: Appropriate, cooperative Speech: Normal rate and rhythm, minimal communication Mood: Anxious to leave Affect: Constricted Thought process: Poverty of thought Thought Content: Wants to leave and go live with his sister. Cognition: A&O X4 Insight: Fair Judgment: Fair Interventions PRN's used: None Therapeutic interventions: Performed 1:1 therapeutic assessment, provided clear and simple instructions, encouraged independent performance of ADLs, maintained Q 15 min safety checks. Restraints/seclusion/emergency medication: N/A Justification of Continued Inpatient Treatment: Pt. is unable to provide for his own food, clothing, or skilled nursing and is awaiting placement at an IMD.
[2018-12-18 19:55] VITALS: BP 142/68
[2018-12-18] MEDS: risperiDONE 2mg tablet PO SCH (20:25)
[2018-12-18] MEDS: amLODIPine 2.5mg tablet PO SCH (20:25)
--- NOTE | 2018-12-19 03:16 | NUR ---
Nursing Progress Note: Legal hold: [facility] conserved Client on involuntary status for GD, psychosis Report received from Carlos WEISS with use of SBAR Why are they here: 68 year old male with hx of schizophrenia presents to the ED on a 5150 mental health hold. 5150 was written by a clinician due to the patient being unable to care for himself. Due to the 5150 report that patient was released from [facility] yesterday and attempted to go to his sisters house. It was proved that the patient is unable to provide food, skilled nursing, or clothing for himself and is having grandiose delusions that he is a "national account executive going through time travel." Patient has no intentions for suicide or homicide. Per Natasha Robert's note, BAR STEWARD, the patient is conserved by the state and she is working and finding placement for him. Assessment: What happened this shift: Pt walks the unit during the evening, smiling and keeping to himself. Pt denies SI/HI/AH/VH. Pt is cooperative with 1:1 assessment, and medication compliant. When asked how his day was he replied, "good." When asked how he has been sleeping he replies, "good." He is pleasant and answers questions but does not expand on any point. S/I, H/I: "no" A/VH: "no" Sleep: see sleep assessment notation ADL's: Independent. Pt. needs prompting. Group attendance: shift engineer, no group Were meds taken: Medication compliant Any med S/E: None reported or observed Mental Status Exam Appearance: Clean, wearing street clothes and a beanie Eye contact: Fair Behavior: Pleasant, paces the halls Speech: Clear, poverty of speech Mood: Pleasant Affect: Blunted, with some brightening Thought process: Bored, trying to keep self busy with music Thought Content: Poverty of thought, will engage if spoken to first Cognition: A&Ox 2. Insight: Poor Judgment: Poor Interventions PRN's used: NA Therapeutic interventions: 1:1 assessment at the bedside. Provided therapeutic communication and active listening, medication administration/monitoring/education, reality orientation, Q 15 min checks. Restraints/seclusion/emergency medication: None Justification of Continued Inpatient Treatment: Pt is gravely disabled unable to verbalize a plan for food,clothing and skilled nursing. Pt is at baseline and awaiting placement.
[2018-12-19 08:00] VITALS: BP 145/63
[2018-12-19] MEDS: lactulose 20gm/30ml cup PO SCH ×2 (08:02→21:06)
[2018-12-19] MEDS: lisinopril 10 MG tablet PO SCH (08:03)
[2018-12-19] MEDS: ibuprofen tablet 400 MG TABLET PO SCH ×3 (10:09→18:19)
--- NOTE | 2018-12-19 16:02 | NUR ---
Nursing Progress Note: Legal hold[facility] Report received from nurse ABHISHEK Ball with use of SBAR Why are they here: Pt. has a hx of Schizophrenia presents to the ED on a 5150 for GD. Per written 5150 [facility] before coming to the ER. The patient is unable to provide food, mcc, or clothing for himself and was having grandiose delusions that he was a "italian teacher going through time travel." Patient has no intentions of suicide or homicide. Per Natasha Robert's note, LIVESTOCK COUNTER, the patient is conserved by the state and she is working at finding placement for him. Assessment What has happened this shift: Pt paces hallways throughout the day. He laid down for his usual morning nap about an hour. He reports normal BM's and denies all mental health symptoms. He is medication compliant. Smiles and greets staff walking up and down the halls. Pt will talk to staff more now then he did on admit. S/I, H/I: Denies A/VH: Denies. Sleep: Up all shift ADL's: Independent; requires prompting Group attendance: No Were Meds taken: Yes Any med S/E: None noted or reported Mental Status Exam Appearance: Same clothes as he wore yesterday Eye contact: Direct Behavior: Appropriate, cooperative Speech: Normal rate and rhythm, minimal communication Mood: Anxious to leave Affect: Constricted Thought process: Poverty of thought Thought Content: Wants to leave and go live with his sister. Cognition: A&O X4 Insight: Fair Judgment: Fair Interventions PRN's used: None Therapeutic interventions: 1:1 assessment, provided therapeutic communication with active listening, medication administration/monitoring/education, encouragement to perform self care/personal hygiene and attend groups, Q 15 min safety checks. Restraints/seclusion/emergency medication: N/A Justification of Continued Inpatient Treatment: Pt. is unable to provide for his own food, clothing, or mcc and is awaiting placement at an IMD.
[2018-12-19 20:00] VITALS: BP_SYST 140; BP_SYST 142; BP_DIAS 68; BP_DIAS 75
[2018-12-19] MEDS: amLODIPine 2.5mg tablet PO SCH (21:06)
[2018-12-19] MEDS: risperiDONE 2mg tablet PO SCH (21:07)
--- NOTE | 2018-12-19 23:15 | NUR ---
Nursing Progress Note: Legal hold: [facility] conserved Client on involuntary status for GD, psychosis Report received from ABHISHEK Gonzalez with use of SBAR Why are they here: 68 year old male with hx of schizophrenia presents to the ED on a 5150 mental health hold. 5150 was written by a clinician due to the patient being unable to care for himself. Due to the 5150 report that patient was released from detention yesterday and attempted to go to his sisters house. It was proved that the patient is unable to provide food, halfway, or clothing for himself and is having grandiose delusions that he is a "personal care worker going through time travel." Patient has no intentions for suicide or homicide. Per Natasha Robert's note, HYDROSTATIC TUBING TESTER, the patient is conserved by the state and she is working and finding placement for him. Assessment: What happened this shift: Pt isolates to his room majority of the shift. He lays down quietly in the dark. Pt says he had a "lousy day" but when sba underwriter asks why it was lousy he just replies, "just one of those miserable days." "just anxious genny day." Element Winding Machine Tender asks if he is still feeling anxious and he says, "no not anymore I feel better now." He is medication compliant and cooperative with 1:1 assessment. He denies SI/HI/AH/VH. S/I, H/I: "no" A/VH: "no" Sleep: see sleep assessment notation ADL's: Independent. Pt. needs prompting. Group attendance: weight shifter, no group Were meds taken: Medication compliant Any med S/E: None reported or observed Mental Status Exam Appearance: Clean, wearing street clothes and a beanie Eye contact: Fair Behavior: Pleasant, paces the halls Speech: Clear, poverty of speech Mood: Pleasant Affect: Blunted, with some brightening Thought process: Bored, trying to keep self busy with music Thought Content: Poverty of thought, will engage if spoken to first Cognition: A&Ox 2. Insight: Poor Judgment: Poor Interventions PRN's used: NA Therapeutic interventions: 1:1 assessment at the bedside. Provided therapeutic communication and active listening, medication administration/monitoring/education, reality orientation, Q 15 min checks. Restraints/seclusion/emergency medication: None Justification of Continued Inpatient Treatment: Pt is gravely disabled unable to verbalize a plan for food,clothing and halfway. Pt is at baseline and awaiting placement.
[2018-12-20] MEDS: lactulose 20gm/30ml cup PO SCH ×2 (07:58→20:04)
[2018-12-20] MEDS: lisinopril 10 MG tablet PO SCH (07:58)
[2018-12-20] MEDS: ibuprofen tablet 400 MG TABLET PO SCH ×3 (07:59→17:00)
[2018-12-20 08:00] VITALS: BP 154/76
--- NOTE | 2018-12-20 13:38 | NUR ---
Nursing Progress Note: Legal hold[facility] for GD Report received from nurse Sun RN with use of SBAR Why are they here: Pt. has a hx of Schizophrenia presents to the ED on a 5150 for GD. Per written 5150 patient was released from halfway the day before coming to the ER. The patient is unable to provide food, usp, or clothing for himself and was having grandiose delusions that he was a "internet sales consultant going through time travel." Patient has no intentions of suicide or homicide. Per Natasha Robert's note, FACSIMILE OPERATOR, the patient is conserved by the state and she is working at finding placement for him. Assessment What has happened this shift: The patient is awake at change of shift walking in the hallway in his [facility]. He gets dressed for breakfast when asked to d so. He is medication compliant. Denies any suicidal thoughts or hallucinations. He is personable when spoken to and answers all questions. Eating well and having regular BM's.States his mood is "good." Blunted affect. S/I, H/I: Denies A/VH: Denies. Sleep: Napped ADL's: Independent; requires prompting Group attendance: No Were Meds taken: Yes Any med S/E: None noted or reported Mental Status Exam Appearance: wnl Eye contact: Direct Behavior: Appropriate, cooperative Speech: Normal rate and rhythm, minimal communication Mood: Calm Affect: Blunted Thought process: Poverty of thought Thought Content: Wants to leave and go live with his sister. Cognition: A&O X4 Insight: Fair Judgment: Fair Interventions PRN's used: None Therapeutic interventions: 1:1 assessment, provided therapeutic communication with active listening, medication administration/monitoring/education, encouragement to perform self care/personal hygiene and attend groups, Q 15 min safety checks. Restraints/seclusion/emergency medication: N/A Justification of Continued Inpatient Treatment: Pt. is unable to provide for his own food, clothing, or usp and is awaiting placement at an IMD.
[2018-12-20 19:30] VITALS: BP 141/73
[2018-12-20] MEDS: amLODIPine 2.5mg tablet PO SCH (20:05)
[2018-12-20] MEDS: risperiDONE 2mg tablet PO SCH (20:05)
--- NOTE | 2018-12-20 22:32 | NUR ---
Nursing Progress Note: Legal hold: [facility] for GD Report received from nurse Lindsay RN with use of SBAR Why are they here: Pt. has a hx of Schizophrenia presents to the ED on a 5150 for GD. Per written 5150 patient was released from correction the day before coming to the ER. The patient is unable to provide food, senior living, or clothing for himself and was having grandiose delusions that he was a "systems qa analyst going through time travel." Patient has no intentions of suicide or homicide. Per Natasha Robert's note, ABSORPTION PLANT OPERATOR, the patient is conserved by the state and she is working at finding placement for him. Assessment What has happened this shift: The patient has been up on the unit and observed pacing in the hallway. He was very friendly and cooperative during the evening assessment. 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 He was oriented to day and date. He reports his appetite was good. S/I, H/I: Denies A/VH: Denies. Sleep: ADL's: Independent; requires prompting Group attendance: No Were Meds taken: Yes Any med S/E: excessive oral movement. 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 Restraints/seclusion/emergency medication: N/A Justification of Continued Inpatient Treatment: Pt. is unable to provide for his own food, clothing, or senior living and is awaiting placement at an IMD. He does not have a realistic plan for food, senior living or clothing if he leaves the structure of the inpatient unit.
[2018-12-21] MEDS: ibuprofen tablet 400 MG TABLET PO SCH ×3 (07:47→17:09)
[2018-12-21] MEDS: lisinopril 10 MG tablet PO SCH (07:48)
[2018-12-21] MEDS: lactulose 20gm/30ml cup PO SCH ×2 (07:48→20:39)
[2018-12-21 08:00] VITALS: BP 133/80
[2018-12-21 08:19] VITALS: BP 133/80
--- NOTE | 2018-12-21 11:51 | NUR ---
Reassessment: Pt PO 75-100% meals meeting needs. LBM 12/20. No nutrition concerns at this time. Recommendations: 1) Continue with regular diet 2) antihyperlipidemic per MD approval for TG 186 3) Weekly wts Addendum: 12/21/18 at [address] Amended: Links added.
--- NOTE | 2018-12-21 15:21 | NUR ---
Nursing Progress Note: Aldo Lee Legal hold: [facility] status for GD Report received from nurse Sun MANN with use of SBAR Why are they here: Pt. has a hx of Schizophrenia presents to the ED on a 5150 for GD. Per written 5150 patient was released from skilled nursing the day before coming to the ER. The patient is unable to provide food, residential, or clothing for himself and was having grandiose delusions that he was a "data processing operator going through time travel." Patient has no intentions of suicide or homicide. Per Natasha Robert's note, PUTTY MIXER AND APPLIER, the patient is conserved by the state and she is working at finding placement for him. Assessment What has happened this shift: Patient was in bed at change of shift. Ambulated to Community room and waited for breakfast. Patient is pleasant and compliant with medications and unit routine. Does state that he is more than done with being here. Compliant with both physical and MH assessment with no changes observed. S/I, H/I: Denies A/VH: Denies. Sleep: 8.0 ADL's: Independent; requires prompting Group attendance: No Were Meds taken: Yes Any med S/E: excessive oral movement. Hands tremors and some pill rolling Mental Status Exam Appearance: clean, neat Eye contact: Direct Behavior: Appropriate, cooperative Speech: Normal rate and rhythm, minimal communication Mood: Calm Affect: Blunted Thought process: Poverty of thought Thought Content: tired of being here Cognition: A&O X4 Insight: poor Judgment: poor Interventions PRN's used: None Therapeutic interventions: 1:1 assessment, provided therapeutic communication with active listening, medication administration/monitoring/education, encouragement to perform self care/personal hygiene and attend groups, Q 15 min safety checks. Restraints/seclusion/emergency medication: N/A Justification of Continued Inpatient Treatment: Pt. is unable to provide for his own food, clothing, or residential and is awaiting placement at an [facility]. He does not have a realistic plan for food, residential or clothing if he leaves the structure of the inpatient unit.
[2018-12-21 19:25] VITALS: BP 143/89
[2018-12-21 19:30] VITALS: BP 157/77
[2018-12-21] MEDS: amLODIPine 2.5mg tablet PO SCH (20:39)
[2018-12-21] MEDS: risperiDONE 2mg tablet PO SCH (20:40)
--- NOTE | 2018-12-22 00:17 | NUR ---
Nursing Progress Note: Legal hold: LPS Client on involuntary status for GD Report received from nurse with use of SBAR: MACKENZIE Lizama Why are they here: Pt. has a hx of Schizophrenia presents to the ED on a 5150 mental health hold. 5150 was written by a clinician due to the patient being unable to care for himself. Due to the 5150 report that patient was released from fpc yesterday and attempted to go to his sisters house. It was proved that the patient is unable to provide food, fpc, or clothing for himself and is having grandiose delusions that he is a "probate judge going through time travel." Patient has no intentions for suicide or homicide. Per Natasha Robert's note, STAINED GLASS ARTIST, the patient is conserved by the state and she is working and finding placement for him. Assessment What has happened this shift: Pt. up pacing the [place]sworth at the beginning of the shift and throughout the shift, he smiles and greets this process description writer. 1:1 completed, pt. continues to present as somewhat restless and guarded, however is pleasant and smiling during the assessment. When questioned in regard to mood, he denies depression or anxiety, states, "I don't feel anything, I just want to leave." Pt. reports that he wishes his friend, "Aldo," would come and get him,; when this process description writer attempted to question pt. further regarding this person and to assess for any delusional thinking, pt. stated, "It's just an old friend of mine." He then stated, "I know they are working on my discharge, they said just a few more days." S/I, H/I: N/A A/VH: Denies, and does not appear to be responding to internal stimuli. Sleep: Reports he has been sleeping well ADL's: Independent Group attendance: Reports he attends groups sometimes Were meds taken: Yes Any med S/E: None Mental Status Exam Appearance: Neat, dressed appropriately, and continues to wear beanie on head Eye contact: Good Behavior: Cooperative, restless, slightly guarded Speech: WNL, minimal, responds only to questions Mood: Pleasant Affect: Blunted, however animates with conversation Thought process: Poverty of thought Thought Content: Preoccupation with desire to discharge and is pleasantly delusional at times Cognition: A&O X4 Insight: Fair Judgment: Fair Interventions PRN's used: None Therapeutic interventions: Maintained a safe and therapeutic environment, provided clear and simple instructions, reoriented to reality as needed, encouraged independent performance of ADLs, provided positive encouragement, and maintained Q 15 min safety checks. Restraints/seclusion/emergency medication: N/A Justification of Continued Inpatient Treatment: Pt. is unable to provide for his own food, clothing, or fpc and is awaiting placement by [facility].
[2018-12-22] MEDS: lactulose 20gm/30ml cup PO SCH ×2 (07:52→21:08)
[2018-12-22] MEDS: lisinopril 10 MG tablet PO SCH (07:52)
[2018-12-22 08:00] VITALS: BP 142/75
[2018-12-22] MEDS: ibuprofen tablet 400 MG TABLET PO SCH ×3 (09:08→17:25)
--- NOTE | 2018-12-22 14:02 | NUR ---
Nursing Progress Note: Aldo Lee Legal hold: LPS Client on involuntary status for GD Report received from nurse with use of SBAR: MACKENZIE Ball Why are they here: Pt. has a hx of Schizophrenia presents to the ED on a 5150 mental health hold. 5150 was written by a clinician due to the patient being unable to care for himself. Due to the 5150 report that patient was released from correction yesterday and attempted to go to his sisters house. It was proved that the patient is unable to provide food, prison, or clothing for himself and is having grandiose delusions that he is a "creative strategist going through time travel." Patient has no intentions for suicide or homicide. Per Natasha Robert's note, MULTICULTURAL SERVICES LIBRARIAN, the patient is conserved by the state and she is working and finding placement for him. Assessment What has happened this shift: Patient was sleeping at change of shift. Woke up for breakfast, ate and then began pacing the halls. When offered a shower patient responded that he had taken a shower the evening prior. He then returned to his room, changed into clothing and continued to pace the [place]sworth. Patient relates that he previously lived near the [facility] off of [place], but was forced to leave because of loud partying. He stated he liked it there because he could help his daughter when she needed him. States his daughters name is Morenita and she is 5. When asked earlier about friends and family he denied having children but said he did have a sister. S/I, H/I: N/A A/VH: Denies, and does not appear to be responding to internal stimuli. Sleep: 7.75 ADL's: Independent Group attendance: Were meds taken: Yes Any med S/E: None Mental Status Exam Appearance: Neat, dressed appropriately, and continues to wear beanie on head Eye contact: Good Behavior: Cooperative, restless, slightly guarded Speech: WNL, minimal, responds only to questions Mood: Pleasant Affect: Blunted, however animates with conversation Thought process: Poverty of thought Thought Content: Preoccupation with desire to discharge and is pleasantly delusional at times Cognition: A&O X4 Insight: Fair Judgment: Fair Interventions PRN's used: None Therapeutic interventions: Maintained a safe and therapeutic environment, provided clear and simple instructions, reoriented to reality as needed, encouraged independent performance of ADLs, provided positive encouragement, and maintained Q 15 min safety checks. Restraints/seclusion/emergency medication: N/A Justification of Continued Inpatient Treatment: Pt. is unable to provide for his own food, clothing, or prison and is awaiting placement by Guardian.
[2018-12-22 20:00] VITALS: BP 147/79
[2018-12-22] MEDS: risperiDONE 2mg tablet PO SCH (21:07)
[2018-12-22] MEDS: amLODIPine 2.5mg tablet PO SCH (21:08)
--- NOTE | 2018-12-23 00:04 | NUR ---
Nursing Progress Note: Legal hold: LPS Client on involuntary status for GD Report received from nurse with use of SBAR: MACKENZIE Millan Why are they here: Pt. has a hx of Schizophrenia presents to the ED on a 5150 mental health hold. 5150 was written by a clinician due to the patient being unable to care for himself. Due to the 5150 report that patient was released from long term yesterday and attempted to go to his sisters house. It was proved that the patient is unable to provide food, alf, or clothing for himself and is having grandiose delusions that he is a "federal judge going through time travel." Patient has no intentions for suicide or homicide. Per Natasha Robert's note, IMMIGRATION SPECIALIST, the patient is conserved by the state and she is working and finding placement for him. Assessment What has happened this shift: Pt. up pacing the [place] at the beginning of the shift and throughout the shift, he smiles and jokes with staff. 1:1 completed, when questioned by this telegraphic typewriter installer in regard to how his day was, pt. stated with a smile, "It was terrible, every day is." He continues to eagerly await discharge, and reports that he is hopeful that it will be within the next couple of days. Pt. continues to deny any depression, anxiety, or H/A, and no delusional statements made this shift. S/I, H/I: N/A A/VH: Denies, and does not appear to be responding to internal stimuli. Sleep: Reports he has been sleeping well ADL's: Independent Group attendance: Pt. reports that he attended groups today Were meds taken: Yes Any med S/E: None Mental Status Exam Appearance: Neat, dressed appropriately, and continues to wear beanie on head Eye contact: Good Behavior: Cooperative, restless, slightly guarded Speech: WNL, minimal, responds only to questions Mood: Pleasant Affect: Blunted, however animates with conversation Thought process: Poverty of thought Thought Content: Preoccupation with desire to discharge and is pleasantly delusional at times Cognition: A&O X4 Insight: Fair Judgment: Fair Interventions PRN's used: None Therapeutic interventions: Maintained a safe and therapeutic environment, provided clear and simple instructions, reoriented to reality as needed, encouraged independent performance of ADLs, provided positive encouragement, and maintained Q 15 min safety checks. Restraints/seclusion/emergency medication: N/A Justification of Continued Inpatient Treatment: Pt. is unable to provide for his own food, clothing, or alf and is awaiting placement by Guardian.
[2018-12-23] MEDS: ibuprofen tablet 400 MG TABLET PO SCH ×2 (07:48→12:28)
[2018-12-23] MEDS: lactulose 20gm/30ml cup PO SCH (07:48)
[2018-12-23] MEDS: lisinopril 10 MG tablet PO SCH (07:49)
[2018-12-23 08:00] VITALS: BP 136/74
[2018-12-23] MEDS ORDERED: AMLO2.5T4 PO (12:22)
[2018-12-23] MEDS ORDERED: RISP2TAB3 PO (12:22)
--- NOTE | 2018-12-23 15:01 | NUR ---
Nursing Discharge Note Patient discharged at 1400, left [facility] ambulatory, accompanied by [facility] jukebox route driver and will be transported to [facility]. Psychiatric and therapeutic services will be provided with the placement facility. Patients belongings inventoried and all valuables are taken with patient. No S&S of distress. Discharge instructions provided to patient, patient denies having any questions. Community Crisis service information and national suicide hotline handout given. Patient has improved since admit and is not under any acute physical or emotional distress. Offered Nicotine replacement, patient refused.
== END 2018-12-23 14:00 | DRG 885 ==
LOC: UNDOADMIN 17:29 → ADULT MH 17:29
PROVIDERS: ADMIT Psychiatry & Neurology Psychiatry; ATTEND Psychiatry & Neurology Psychiatry
DX: F20.0 Paranoid schizophrenia (principal); F10.10 Alcohol abuse, uncomplicated; D69.6 Thrombocytopenia, unspecified; F32.9 Major depressive disorder, single episode, unspecified; I10 Essential (primary) hypertension; F17.210 Nicotine dependence, cigarettes, uncomplicated; M19.90 Unspecified osteoarthritis, unspecified site; Z79.899 Other long term (current) drug therapy; Z71.41 Alcohol abuse counseling and surveillance of alcoholic; Z59.0 Homelessness; Z91.14 Patient's other noncompliance with medication regimen
CPT/HCPCS: 36415; 80061; 83036; 84443; 87081; Z7610

== ENCOUNTER 2019-01-22 21:24 | Inpatient (IN) | payer MEDICARE, MEDICAID ==
[~2019-01-22] VITALS: Ht 172.7 cm; Wt 83.0 kg
[~2019-01-22 21:24] MED LIST changes: +AMLO2.5T4 PO; -AMLO5TAB4 PO; -OLAN5TAB3 PO; +RISP2TAB3 PO; -RISP3TAB11 PO
[2019-01-22] MEDS ORDERED: MULT-933 PO (21:50)
[2019-01-22] MEDS ORDERED: OMEP20TA23 PO (21:50)
[2019-01-22] MEDS ORDERED: PALI3TAB PO (21:50)
[2019-01-22] MEDS ORDERED: RISP2TAB97 PO (21:51)
[2019-01-22] MEDS ORDERED: ACET-2119 PO (21:57)
[2019-01-22] MEDS ORDERED: BISA10SU60 RC (21:57)
[2019-01-22] MEDS ORDERED: ONDA4TAB6 PO (21:57)
[2019-01-22] MEDS ORDERED: IBUP-24 PO (21:57)
[2019-01-22] MEDS ORDERED: OLAN5TAB3 PO (21:57)
[2019-01-22] MEDS ORDERED: NA P230E RC (21:57)
[2019-01-22 22:03] LABS: BASOPHILS # (AUTO) 0.1 X10'3 (0-0.2); BASOPHILS % (AUTO) 0.4 % (0-1); EOSINOPHILS % (AUTO) 0.1 % (0-6); HEMATOCRIT 43.5 % (42.0-52.0); HEMOGLOBIN 14.7 g/dl (14.0-17.9); LYMPHOCYTES % (AUTO) 7.1 % (21-51); MEAN CORPUSCULAR HEMOGLOBIN 30.9 PG (27.0-31.0); MEAN CORPUSCULAR HGB CONC 33.7 g/dL (33.0-36.5); MEAN CORPUSCULAR VOLUME 91.7 FL (78-98); MEAN PLATELET VOLUME 10.2 FL (7.4-10.4); MONOCYTES # (AUTO) 1.8 X10'3 (0-0.9); MONOCYTES % (AUTO) 12.2 % (2-12); NEUTROPHILS # (AUTO) 11.7 X10'3 (1.8-7.7); NEUTROPHILS % (AUTO) 80.2 % (42-75); PLATELET COUNT 76 X10'3 (140-440); RED BLOOD COUNT 4.75 X10'6 (4.70-6.10); WHITE BLOOD COUNT 14.5 X10'3 (4.5-11.0)
[2019-01-22 22:04] LABS: PARTIAL THROMBOPLASTIN TIME 32 SECONDS (22-32)
[2019-01-22 22:05] LABS: ALANINE AMINOTRANSFERASE 45 U/L (12-78); ALBUMIN 3.2 G/DL (3.4-5.0); ALBUMIN/GLOBULIN RATIO 0.7 (1.1-1.5); ALKALINE PHOSPHATASE 59 IU/L (46-116); ANION GAP 10 (8-16); ASPARTATE AMINO TRANSFERASE 31 U/L (10-37); BILIRUBIN,TOTAL 1.8 MG/DL (0.1-1.0); BLOOD UREA NITROGEN 28 MG/DL (7-18); BUN/CREATININE RATIO 18.2 (5.4-32.0); CALCIUM 8.1 MG/DL (8.5-10.1); CHLORIDE 103 MMOL/L (99-107); CREATININE 1.54 MG/DL (0.60-1.10); GLUCOSE 160 MG/DL (70-104); POTASSIUM 3.9 MMOL/L (3.5-5.1); SODIUM 137 MMOL/L (135-145); TOTAL CARBON DIOXIDE 24.4 MMOL/L (24-32); TOTAL PROTEIN 7.5 G/DL (6.4-8.2); eGFR 45 ML/MIN
[2019-01-22 22:45] LABS: CLARITY,URINE CLEAR (Clear); COLOR,URINE AMBER (Yellow); GLUCOSE, URINE NEGATIVE (Neg); KETONES,URINE TRACE mg/dl (Neg); LEUKOCYTE ESTERASE ,URINE NEGATIVE (Neg); NITRITES, URINE NEGATIVE (Neg); OCCULT BLOOD,URINE TRACE-INTACT (Neg); PH,URINE 5.5 (4.8-8.0); PROTEIN,URINE 100 mg/dl (Neg); UROBILINOGEN,URINE >=8.0 E.U/dL (0.2-1.0)
[2019-01-22] MEDS ORDERED: normal saline 1000ML IV soln IV ONE (22:45)
[2019-01-22] MEDS ORDERED: metroNIDAZOLE-Flagyl 500mg/NS 100 ML IV ONE (22:45)
[2019-01-22] MEDS ORDERED: CefTRIAXone 2gm/D5W 50ml 50 ML IV ONE (22:45)
[2019-01-22 22:48] LABS: UA COLLECTION TYPE CLN CATCH MIDSTREAM
[2019-01-22 23:12] LABS: FINE GRANULAR CAST 0-3 /LPF (NEGATIVE); HYALINE CASTS 0-3 /LPF (NEGATIVE)
[2019-01-22 23:13] LABS: RBC,URINE 0-2 /HPF (0-2); WBC,URINE 0-4 /HPF (0-4)
[2019-01-22 23:14] LABS: BACTERIA,URINE NONE SEEN /HPF (Neg); MUCUS STRANDS MANY /LPF (Neg); SQUAMOUS EPITHELIAL CELL,UR FEW /LPF (FEW)
--- NOTE | 2019-01-23 00:14 | NUR ---
ULTRASOUND IS DONE AT BEDSIDE
[2019-01-23] MEDS ORDERED: HYDROmorphone inj. 0.5 MG/0.5 ML DISP.SYRIN IV PRN (00:40)
[2019-01-23] MEDS ORDERED: ondansetron/PF 4mg/2ml inj IV PRN (00:40)
[2019-01-23] MEDS ORDERED: HYDROmorphone 1 mg/ml syringe IV PRN (00:40)
[2019-01-23] MEDS: normal saline 1000ml 1,000 ML IV SCH ×3 (01:23→20:38)
--- NOTE | 2019-01-23 02:16 | NUR ---
Received report from MACKENZIE Pena. Awaiting patient arrival to the unit.
--- NOTE | 2019-01-23 02:30 | NUR ---
Patient arrived to the floor via wheelchair, accompanied by MACKENZIE Gates. Placed in room 350A. Patient is awake and alert on room air, in no apparent distress. Appears to be slightly confused; baseline confused. Reoriented patient to person, place, event and environment. Will put on tabs alarm. Call light and items of frequent use within reach. Will continue to monitor.
[2019-01-23 02:35] VITALS: BP 143/83
--- NOTE | 2019-01-23 03:25 | NUR ---
JULIANNE Landry (Billiard Table Mechanic today at [place]) called for update on patient. Report given, questions answered to the best of my knowledge. JULIANNE stated that an RN/Billiard Table Mechanic will be calling on a daily basis to receive updates about patient. Patient is conserved by the state.
[2019-01-23 06:01] LABS: ALANINE AMINOTRANSFERASE 32 U/L (12-78); ALBUMIN 2.7 G/DL (3.4-5.0); ALBUMIN/GLOBULIN RATIO 0.8 (1.1-1.5); ALKALINE PHOSPHATASE 50 IU/L (46-116); ANION GAP 12 (8-16); ASPARTATE AMINO TRANSFERASE 25 U/L (10-37); BILIRUBIN,TOTAL 1.3 MG/DL (0.1-1.0); BLOOD UREA NITROGEN 22 MG/DL (7-18); BUN/CREATININE RATIO 17.9 (5.4-32.0); CALCIUM 7.4 MG/DL (8.5-10.1); CHLORIDE 106 MMOL/L (99-107); CREATININE 1.23 MG/DL (0.60-1.10); GLUCOSE 121 MG/DL (70-104); POTASSIUM 3.8 MMOL/L (3.5-5.1); SODIUM 139 MMOL/L (135-145); TOTAL CARBON DIOXIDE 21.1 MMOL/L (24-32); TOTAL PROTEIN 6.3 G/DL (6.4-8.2); eGFR 58 ML/MIN
--- NOTE | 2019-01-23 06:12 | NUR ---
Patient in room SHARON 350. I have received report from Angie MANN and had the opportunity to ask questions and assume patient care.
--- NOTE | 2019-01-23 06:38 | NUR ---
Problems reprioritized. Patient report given, questions answered & plan of care reviewed with MACKENZIE Pino.
[2019-01-23] MEDS: CefTRIAXone/D5W-Rocephin 1gm 50 ML IV SCH (07:26)
[2019-01-23] MEDS: lisinopril 10 MG tablet PO SCH (07:32)
[2019-01-23] MEDS: amLODIPine 2.5mg tablet PO SCH (07:32)
[2019-01-23 08:00] VITALS: BP 148/76
[2019-01-23] MEDS: metroNIDAZOLE-Flagyl 500mg/NS 100 ML IV SCH ×2 (08:00→15:37)
--- NOTE | 2019-01-23 09:08 | NUR ---
Message sent to pharmacy for medications needed for the 0800 dose; Zyprexa and Paliperidone
[2019-01-23] MEDS: OLANZAPINE 5 MG TABLET PO SCH ×3 (10:30→20:11)
[2019-01-23] MEDS: PALIPERIDONE 3 MG TAB.ER.24 PO SCH (10:30)
[2019-01-23 11:51] VITALS: BP 127/69
[2019-01-23 16:06] VITALS: BP 127/69
--- NOTE | 2019-01-23 16:12 | NUR ---
+ Blood Cultures Gram - rods Addendum: 01/23/19 at 1613 by Odette Bacon RN Amended: Links added.
--- NOTE | 2019-01-23 18:09 | NUR ---
Problems reprioritized. Patient report given, questions answered & plan of care reviewed with Adiel MANN.
--- NOTE | 2019-01-23 18:30 | NUR ---
Patient in room SHARON 354. I have received report from BELTRAN MANN and had the opportunity to ask questions and assume patient care.
[2019-01-23 20:00] VITALS: BP 120/54
[2019-01-23] MEDS: lactobacillus rhamnosus 10,000 MMU CELLS/CAPSULE PO SCH (20:11)
[2019-01-23] MEDS: risperiDONE 2mg tablet PO SCH (20:11)
[2019-01-24] VITALS (17 sets, daily range): BP systolic 105–141; BP diastolic 49–88
[2019-01-24] MEDS: metroNIDAZOLE-Flagyl 500mg/NS 100 ML IV SCH ×3 (00:38→20:42)
[2019-01-24 05:18] LABS: BASOPHILS % (AUTO) 0.2 % (0-1); EOSINOPHILS % (AUTO) 0.2 % (0-6); HEMOGLOBIN 11.4 g/dl (14.0-17.9); LYMPHOCYTES # (AUTO) 0.8 X10'3 (1.1-4.8); LYMPHOCYTES % (AUTO) 8.1 % (21-51); MEAN CORPUSCULAR HEMOGLOBIN 31.5 PG (27.0-31.0); MEAN CORPUSCULAR HGB CONC 34.4 g/dL (33.0-36.5); MEAN CORPUSCULAR VOLUME 91.6 FL (78-98); MEAN PLATELET VOLUME 10.1 FL (7.4-10.4); MONOCYTES # (AUTO) 1.2 X10'3 (0-0.9); MONOCYTES % (AUTO) 12.5 % (2-12); NEUTROPHILS # (AUTO) 7.9 X10'3 (1.8-7.7); PLATELET COUNT 80 X10'3 (140-440); RED BLOOD COUNT 3.61 X10'6 (4.70-6.10); RED CELL DISTRIBUTION WIDTH 12.9 % (11.5-14.5)
[2019-01-24 05:33] LABS: PARTIAL THROMBOPLASTIN TIME 28 SECONDS (22-32)
[2019-01-24 05:37] LABS: ALANINE AMINOTRANSFERASE 31 U/L (12-78); ALBUMIN 2.4 G/DL (3.4-5.0); ALBUMIN/GLOBULIN RATIO 0.7 (1.1-1.5); ALKALINE PHOSPHATASE 41 IU/L (46-116); ANION GAP 9 (8-16); ASPARTATE AMINO TRANSFERASE 25 U/L (10-37); BLOOD UREA NITROGEN 19 MG/DL (7-18); BUN/CREATININE RATIO 15.3 (5.4-32.0); CHLORIDE 109 MMOL/L (99-107); CREATININE 1.24 MG/DL (0.60-1.10); GLUCOSE 114 MG/DL (70-104); MAGNESIUM 1.9 MG/DL (1.5-2.4); POTASSIUM 3.4 MMOL/L (3.5-5.1); SODIUM 140 MMOL/L (135-145); TOTAL CARBON DIOXIDE 21.7 MMOL/L (24-32); TOTAL PROTEIN 5.9 G/DL (6.4-8.2); eGFR 58 ML/MIN
[2019-01-24] MEDS: normal saline 1000ml 1,000 ML IV SCH ×2 (06:14→09:08)
--- NOTE | 2019-01-24 06:30 | NUR ---
Problems reprioritized. Patient report given, questions answered & plan of care reviewed with BELTRAN MANN.
[2019-01-24] MEDS ORDERED: potassium Cl 20 mEq SR tablet PO STA (07:12)
[2019-01-24] MEDS: PALIPERIDONE 3 MG TAB.ER.24 PO SCH (07:20)
[2019-01-24] MEDS: OLANZAPINE 5 MG TABLET PO SCH ×3 (07:20→20:53)
[2019-01-24] MEDS: CefTRIAXone/D5W-Rocephin 1gm 50 ML IV SCH (07:20)
[2019-01-24] MEDS ORDERED: potassium CL 10mEq/100ml bag 100 ML IV PRN (07:30)
[2019-01-24] MEDS ORDERED: magnesium Cl slow-release 64mg tablet PO PRN (07:30)
[2019-01-24] MEDS ORDERED: potassium Cl 20 mEq SR tablet PO PRN (07:30)
[2019-01-24] MEDS ORDERED: magnesium 4gm in 100ml NS 100 ML IV PRN (07:30)
[2019-01-24] MEDS: amLODIPine 2.5mg tablet PO SCH (07:44)
[2019-01-24] MEDS: lactobacillus rhamnosus 10,000 MMU CELLS/CAPSULE PO SCH ×2 (07:44→20:53)
[2019-01-24] MEDS: lisinopril 10 MG tablet PO SCH (07:45)
[2019-01-24] MEDS: acetaminophen 325mg tablet PO PRN ×2 (11:34→23:21)
[2019-01-24] MEDS ORDERED: INDOCYANINE GREEN 25 MG VIAL IV ONE (13:30)
[2019-01-24] MEDS ORDERED: ringers solution, lacted 1,000 ML IV SCH (14:56)
[2019-01-24] MEDS ORDERED: meperidine/PF 25mg/ml syringe IV PRN ×3 (15:00)
[2019-01-24] MEDS ORDERED: proCHLORperazine 10 MG/2 ml inj IV PRN (15:00)
[2019-01-24] MEDS ORDERED: ondansetron/PF 4mg/2ml inj IV PRN (15:00)
[2019-01-24] MEDS ORDERED: morphine 4 MG/ML inj SYRINge IV PRN ×2 (15:00)
[2019-01-24] MEDS ORDERED: midazolam 2 mg/2 ml injection ONE (16:39)
[2019-01-24] MEDS ORDERED: propofol inj 20 ML IV ONE (16:39)
[2019-01-24] MEDS ORDERED: BUPIVAcaine/PF 2.5 mg/ml (0.25%) 30ml vial ONE (16:39)
[2019-01-24] MEDS ORDERED: LIDOcaine 1% 30ml preserv. free vial ONE (16:39)
[2019-01-24] MEDS ORDERED: fentaNYL /PF 50mcg/ml 5ml ampule ONE (16:39)
[2019-01-24] MEDS ORDERED: rocuronium 10mg/ml inj IV ONE (16:39)
[2019-01-24] MEDS ORDERED: ceFOXitin 2 GM ADDVANTGE BAG 50 ML IV ONE (16:58)
--- NOTE | 2019-01-24 18:20 | NUR ---
I have received report from BELTRAN MANN and had the opportunity to ask questions and assume patient care. PATIENT IS STILL IN OR FOR LAP HOLLIS.
[2019-01-24] MEDS ORDERED: glycopyrrolate 0.2mg/ml inj ONE (18:30)
[2019-01-24] MEDS ORDERED: neostigmine methylsulfate 1 MG/ML 10ml vial ONE (18:30)
--- NOTE | 2019-01-24 18:32 | NUR ---
Received from OR via , accompanied by Anesthesiologist DR SORENSEN and report given by Anesthesiolgist. AWAKENS TO VOICE. VITALS STABLE. DRESSINGS DI. LAKE PAIN. SALMA WITH SEROSANG IN BULB. ABD SOFT.
[2019-01-24] MEDS ORDERED: HYDROmorphone 1 mg/ml syringe IV PRN (18:50)
--- NOTE | 2019-01-24 19:22 | NUR ---
Report called to receiving nurse. Transferred via BED Belongings . Special Issues communicated to receiving nurse. AWAKE AND ORIENTED. VITALS STABLE. DRESSINGS DI. LAKE PAIN. TO SURGICAL RM 358A AT THIS TIME.
--- NOTE | 2019-01-24 19:35 | NUR ---
PATIENT CAME BACK FROM RECOVERY ROOM AFTER LAP HOLLIS WAS DONE BY DR. KELSEY. PLACED COMFORTABLE IN BED. VITAL SIGNS MONITORED.
[2019-01-24] MEDS: risperiDONE 2mg tablet PO SCH (20:53)
[2019-01-25] VITALS: BP 112/42
--- NOTE | 2019-01-25 | NUR ---
DR. PIERCE WAS HERE IN THE FLOOR AND WAS INFORMED OF FEVER 102.7 CHECKED ON ANTIBIOTICS AND SAID JUST CONTINUE PRESENT ABT AND TYLENOL.
[2019-01-25] MEDS: metroNIDAZOLE-Flagyl 500mg/NS 100 ML IV SCH ×2 (01:15→07:52)
[2019-01-25] MEDS: normal saline 1000ml 1,000 ML IV SCH ×3 (01:18→22:38)
[2019-01-25 05:57] LABS: BASOPHILS % (AUTO) 0.1 % (0-1); EOSINOPHILS % (AUTO) 0.1 % (0-6); HEMATOCRIT 34.5 % (42.0-52.0); HEMOGLOBIN 11.7 g/dl (14.0-17.9); LYMPHOCYTES # (AUTO) 0.6 X10'3 (1.1-4.8); LYMPHOCYTES % (AUTO) 5.4 % (21-51); MEAN CORPUSCULAR HEMOGLOBIN 31.6 PG (27.0-31.0); MEAN CORPUSCULAR VOLUME 92.9 FL (78-98); MEAN PLATELET VOLUME 10.9 FL (7.4-10.4); MONOCYTES # (AUTO) 0.9 X10'3 (0-0.9); MONOCYTES % (AUTO) 8.6 % (2-12); NEUTROPHILS % (AUTO) 85.8 % (42-75); PLATELET COUNT 113 X10'3 (140-440); RED BLOOD COUNT 3.72 X10'6 (4.70-6.10); RED CELL DISTRIBUTION WIDTH 13.1 % (11.5-14.5); WHITE BLOOD COUNT 10.5 X10'3 (4.5-11.0)
[2019-01-25 06:10] LABS: ALANINE AMINOTRANSFERASE 31 U/L (12-78); ALBUMIN 2.5 G/DL (3.4-5.0); ALBUMIN/GLOBULIN RATIO 0.7 (1.1-1.5); ALKALINE PHOSPHATASE 51 IU/L (46-116); ANION GAP 12 (8-16); ASPARTATE AMINO TRANSFERASE 28 U/L (10-37); BILIRUBIN,TOTAL 0.7 MG/DL (0.1-1.0); BLOOD UREA NITROGEN 17 MG/DL (7-18); BUN/CREATININE RATIO 14.9 (5.4-32.0); CALCIUM 7.5 MG/DL (8.5-10.1); CHLORIDE 108 MMOL/L (99-107); CREATININE 1.14 MG/DL (0.60-1.10); GLUCOSE 122 MG/DL (70-104); MAGNESIUM 1.9 MG/DL (1.5-2.4); POTASSIUM 3.7 MMOL/L (3.5-5.1); SODIUM 139 MMOL/L (135-145); TOTAL CARBON DIOXIDE 19.5 MMOL/L (24-32); TOTAL PROTEIN 6.3 G/DL (6.4-8.2); eGFR 64 ML/MIN
--- NOTE | 2019-01-25 06:25 | NUR ---
Problems reprioritized. Patient report given, questions answered & plan of care reviewed with BLAINE MANN.
--- NOTE | 2019-01-25 06:28 | NUR ---
Patient in room SHARON 358. I have received report from Fela Chahal RN and had the opportunity to ask questions and assume patient care. Bed alarm on patient due to him forgetting he has an IV
[2019-01-25 07:00] VITALS: BP 142/66
[2019-01-25 07:24] LABS: LARGE PLATELETS FEW; PLATELET ESTIMATE DECREASED
[2019-01-25] MEDS: lactobacillus rhamnosus 10,000 MMU CELLS/CAPSULE PO SCH ×2 (07:52→21:21)
[2019-01-25] MEDS: amLODIPine 2.5mg tablet PO SCH (07:52)
[2019-01-25] MEDS: OLANZAPINE 5 MG TABLET PO SCH ×3 (07:52→21:20)
[2019-01-25] MEDS: PALIPERIDONE 3 MG TAB.ER.24 PO SCH (07:53)
[2019-01-25] MEDS: lisinopril 10 MG tablet PO SCH (07:53)
[2019-01-25] MEDS: CefTRIAXone/D5W-Rocephin 1gm 50 ML IV SCH (09:37)
[2019-01-25] MEDS ORDERED: HYDROcodone/acetaminophen 10/325mg tab PO PRN (10:20)
[2019-01-25 11:00] VITALS: BP 118/77
[2019-01-25] MEDS: HYDROcodone/acetaminophen 5mg/325mg tablet PO PRN (15:24)
--- NOTE | 2019-01-25 18:31 | NUR ---
Problems reprioritized. Patient report given, questions answered & plan of care reviewed with Morenita MANN.
[2019-01-25 19:00] VITALS: BP 133/71
[2019-01-25] MEDS: risperiDONE 2mg tablet PO SCH (21:21)
[2019-01-26] VITALS: BP 134/63
[2019-01-26] MEDS: acetaminophen 325mg tablet PO PRN (04:08)
--- NOTE | 2019-01-26 06:00 | NUR ---
Problems reprioritized. Patient report given, questions answered & plan of care reviewed with Cristy MANN. Addendum: 01/26/19 at 0659 by Morenita Boone RN Amended: Links added.
[2019-01-26 06:14] LABS: BASOPHILS % (AUTO) 0.2 % (0-1); EOSINOPHILS # (AUTO) 0.1 X10'3 (0-0.9); EOSINOPHILS % (AUTO) 1.2 % (0-6); HEMATOCRIT 29.8 % (42.0-52.0); HEMOGLOBIN 10.4 g/dl (14.0-17.9); LYMPHOCYTES # (AUTO) 0.7 X10'3 (1.1-4.8); MEAN CORPUSCULAR HGB CONC 34.8 g/dL (33.0-36.5); MEAN CORPUSCULAR VOLUME 91.8 FL (78-98); MEAN PLATELET VOLUME 10.7 FL (7.4-10.4); MONOCYTES # (AUTO) 0.8 X10'3 (0-0.9); MONOCYTES % (AUTO) 10.6 % (2-12); NEUTROPHILS # (AUTO) 5.7 X10'3 (1.8-7.7); PLATELET COUNT 94 X10'3 (140-440); RED BLOOD COUNT 3.25 X10'6 (4.70-6.10); RED CELL DISTRIBUTION WIDTH 13.5 % (11.5-14.5); WHITE BLOOD COUNT 7.3 X10'3 (4.5-11.0)
[2019-01-26 06:40] LABS: ALANINE AMINOTRANSFERASE 29 U/L (12-78); ALBUMIN 2.4 G/DL (3.4-5.0); ALBUMIN/GLOBULIN RATIO 0.7 (1.1-1.5); ALKALINE PHOSPHATASE 45 IU/L (46-116); ANION GAP 11 (8-16); ASPARTATE AMINO TRANSFERASE 28 U/L (10-37); BILIRUBIN,TOTAL 0.5 MG/DL (0.1-1.0); BLOOD UREA NITROGEN 9 MG/DL (7-18); BUN/CREATININE RATIO 9.3 (5.4-32.0); CALCIUM 7.1 MG/DL (8.5-10.1); CHLORIDE 109 MMOL/L (99-107); CREATININE 0.97 MG/DL (0.60-1.10); GLUCOSE 124 MG/DL (70-104); MAGNESIUM 1.9 MG/DL (1.5-2.4); POTASSIUM 3.3 MMOL/L (3.5-5.1); SODIUM 140 MMOL/L (135-145); TOTAL CARBON DIOXIDE 19.9 MMOL/L (24-32); eGFR 77 ML/MIN
--- NOTE | 2019-01-26 06:54 | NUR ---
Patient in room SHARON 358. I have received report from MACKENZIE Xavier and had the opportunity to ask questions and assume patient care.
[2019-01-26 07:19] VITALS: BP 146/75
[2019-01-26 08:09] LABS: LARGE PLATELETS FEW; PLATELET ESTIMATE DECREASED
[2019-01-26] MEDS: lactobacillus rhamnosus 10,000 MMU CELLS/CAPSULE PO SCH ×2 (10:06→21:13)
[2019-01-26] MEDS: OLANZAPINE 5 MG TABLET PO SCH ×3 (10:06→21:13)
[2019-01-26] MEDS: PALIPERIDONE 3 MG TAB.ER.24 PO SCH (10:06)
[2019-01-26] MEDS: amLODIPine 2.5mg tablet PO SCH (10:06)
[2019-01-26] MEDS: lisinopril 10 MG tablet PO SCH (10:06)
[2019-01-26 11:00] VITALS: BP 130/69
[2019-01-26] MEDS: dextrose 5%-water 1,000 ML IV SCH ×2 (12:08→21:13)
[2019-01-26] MEDS: levoFLOXACIN 750MG TABLET PO SCH (12:08)
[2019-01-26] MEDS: potassium Cl 20 mEq SR tablet PO PRN ×2 (12:08→21:22)
[2019-01-26 18:00] VITALS: BP 128/63
--- NOTE | 2019-01-26 18:39 | NUR ---
Patient in room SHARON 358. I have received report from Cristy MANN and had the opportunity to ask questions and assume patient care.
--- NOTE | 2019-01-26 18:40 | NUR ---
Problems reprioritized. Patient report given, questions answered & plan of care reviewed with MACKENZIE Avitia.
[2019-01-26] MEDS: risperiDONE 2mg tablet PO SCH (21:14)
[2019-01-27 00:41] VITALS: BP 130/67
[2019-01-27] MEDS: dextrose 5%-water 1,000 ML IV SCH (05:22)
--- NOTE | 2019-01-27 06:07 | NUR ---
Patient in room SHARON 358. I have received report from MACKENZIE Avitia and had the opportunity to ask questions and assume patient care.
[2019-01-27 06:14] LABS: BASOPHILS % (AUTO) 0.2 % (0-1); EOSINOPHILS # (AUTO) 0.1 X10'3 (0-0.9); EOSINOPHILS % (AUTO) 1.6 % (0-6); HEMOGLOBIN 10.9 g/dl (14.0-17.9); LYMPHOCYTES # (AUTO) 1.1 X10'3 (1.1-4.8); MEAN CORPUSCULAR VOLUME 91.5 FL (78-98); MEAN PLATELET VOLUME 9.5 FL (7.4-10.4); MONOCYTES % (AUTO) 11.6 % (2-12); NEUTROPHILS # (AUTO) 6.6 X10'3 (1.8-7.7); NEUTROPHILS % (AUTO) 74.6 % (42-75); PLATELET COUNT 147 X10'3 (140-440); RED BLOOD COUNT 3.39 X10'6 (4.70-6.10); RED CELL DISTRIBUTION WIDTH 13.3 % (11.5-14.5); WHITE BLOOD COUNT 8.8 X10'3 (4.5-11.0)
--- NOTE | 2019-01-27 06:19 | NUR ---
Problems reprioritized. Patient report given, questions answered & plan of care reviewed with Cristy MANN.
[2019-01-27 06:30] LABS: ALANINE AMINOTRANSFERASE 27 U/L (12-78); ALBUMIN 2.3 G/DL (3.4-5.0); ALBUMIN/GLOBULIN RATIO 0.6 (1.1-1.5); ALKALINE PHOSPHATASE 52 IU/L (46-116); ANION GAP 10 (8-16); ASPARTATE AMINO TRANSFERASE 26 U/L (10-37); BILIRUBIN,TOTAL 0.5 MG/DL (0.1-1.0); BLOOD UREA NITROGEN 5 MG/DL (7-18); BUN/CREATININE RATIO 5.4 (5.4-32.0); CALCIUM 7.3 MG/DL (8.5-10.1); CHLORIDE 104 MMOL/L (99-107); CREATININE 0.93 MG/DL (0.60-1.10); GLUCOSE 126 MG/DL (70-104); MAGNESIUM 1.8 MG/DL (1.5-2.4); POTASSIUM 3.5 MMOL/L (3.5-5.1); SODIUM 137 MMOL/L (135-145); eGFR 81 ML/MIN
[2019-01-27 06:58] VITALS: BP 145/66
[2019-01-27] MEDS: lisinopril 10 MG tablet PO SCH (08:54)
[2019-01-27] MEDS: amLODIPine 2.5mg tablet PO SCH (08:54)
[2019-01-27] MEDS: lactobacillus rhamnosus 10,000 MMU CELLS/CAPSULE PO SCH ×2 (08:54→20:18)
[2019-01-27] MEDS: OLANZAPINE 5 MG TABLET PO SCH ×3 (08:54→20:17)
[2019-01-27] MEDS: PALIPERIDONE 3 MG TAB.ER.24 PO SCH (08:54)
--- NOTE | 2019-01-27 10:30 | NUR ---
Initial: Pt admit with cholecystitis and cholelithiasis now s/p lap khanh. Pt with SALMA drain to abdomen with downtrending drainage per MD notes. Pt previously on liquid diet and tolerating per MD notes. Diet has just been advanced to regular, pending documentation of PO intake. LB 01/26. No nutrition diagnosis at this time. Will continue to follow. Recommendations: 1) Continue regular diet 2) Monitor need for ONS 3) Wt per rx Addendum: 01/27/19 at [address] Amended: Links added.
[2019-01-27 11:00] VITALS: BP 145/79
[2019-01-27] MEDS: levoFLOXACIN 750MG TABLET PO SCH (11:06)
[2019-01-27 18:00] VITALS: BP 154/77
--- NOTE | 2019-01-27 18:24 | NUR ---
Problems reprioritized. Patient report given, questions answered & plan of care reviewed with MACKENZIE Avitia.
--- NOTE | 2019-01-27 18:42 | NUR ---
Patient in room SHARON 358. I have received report from Cristy MANN and had the opportunity to ask questions and assume patient care.
[2019-01-27] MEDS: risperiDONE 2mg tablet PO SCH (20:18)
[2019-01-28 00:55] VITALS: BP 144/59
[2019-01-28 05:59] LABS: BASOPHILS % (AUTO) 0.4 % (0-1); EOSINOPHILS # (AUTO) 0.1 X10'3 (0-0.9); EOSINOPHILS % (AUTO) 1.5 % (0-6); HEMATOCRIT 33.2 % (42.0-52.0); HEMOGLOBIN 11.3 g/dl (14.0-17.9); LYMPHOCYTES # (AUTO) 1.1 X10'3 (1.1-4.8); LYMPHOCYTES % (AUTO) 13.4 % (21-51); MEAN CORPUSCULAR HEMOGLOBIN 31.4 PG (27.0-31.0); MEAN CORPUSCULAR HGB CONC 34.1 g/dL (33.0-36.5); MEAN CORPUSCULAR VOLUME 92.1 FL (78-98); MEAN PLATELET VOLUME 9.3 FL (7.4-10.4); MONOCYTES % (AUTO) 11.8 % (2-12); NEUTROPHILS # (AUTO) 6.1 X10'3 (1.8-7.7); NEUTROPHILS % (AUTO) 72.9 % (42-75); PLATELET COUNT 181 X10'3 (140-440); RED BLOOD COUNT 3.61 X10'6 (4.70-6.10); RED CELL DISTRIBUTION WIDTH 13.1 % (11.5-14.5); WHITE BLOOD COUNT 8.3 X10'3 (4.5-11.0)
--- NOTE | 2019-01-28 06:25 | NUR ---
Patient in room SHARON 358. I have received report from MACKENZIE Avitia and had the opportunity to ask questions and assume patient care.
[2019-01-28 06:30] VITALS: BP 132/55
[2019-01-28 06:34] LABS: ALANINE AMINOTRANSFERASE 25 U/L (12-78); ALBUMIN 2.4 G/DL (3.4-5.0); ALBUMIN/GLOBULIN RATIO 0.6 (1.1-1.5); ALKALINE PHOSPHATASE 55 IU/L (46-116); ANION GAP 11 (8-16); ASPARTATE AMINO TRANSFERASE 20 U/L (10-37); BILIRUBIN,TOTAL 0.4 MG/DL (0.1-1.0); BLOOD UREA NITROGEN 11 MG/DL (7-18); CALCIUM 7.8 MG/DL (8.5-10.1); CHLORIDE 108 MMOL/L (99-107); CREATININE 0.92 MG/DL (0.60-1.10); GLUCOSE 110 MG/DL (70-104); MAGNESIUM 1.7 MG/DL (1.5-2.4); POTASSIUM 3.7 MMOL/L (3.5-5.1); SODIUM 140 MMOL/L (135-145); TOTAL CARBON DIOXIDE 20.8 MMOL/L (24-32); TOTAL PROTEIN 6.3 G/DL (6.4-8.2); eGFR 82 ML/MIN
--- NOTE | 2019-01-28 06:36 | NUR ---
Problems reprioritized. Patient report given, questions answered & plan of care reviewed with Jeri RN.
[2019-01-28] MEDS: lactobacillus rhamnosus 10,000 MMU CELLS/CAPSULE PO SCH ×2 (08:36→20:33)
[2019-01-28] MEDS: lisinopril 10 MG tablet PO SCH (08:37)
[2019-01-28] MEDS: amLODIPine 2.5mg tablet PO SCH (08:37)
[2019-01-28] MEDS: OLANZAPINE 5 MG TABLET PO SCH ×3 (08:37→20:33)
[2019-01-28] MEDS: PALIPERIDONE 3 MG TAB.ER.24 PO SCH (08:37)
[2019-01-28 11:00] VITALS: BP 125/58
[2019-01-28] MEDS: levoFLOXACIN 750MG TABLET PO SCH (11:02)
--- NOTE | 2019-01-28 18:25 | NUR ---
Problems reprioritized. Patient report given, questions answered & plan of care reviewed with MACKENZIE Avitia.
[2019-01-28 19:00] VITALS: BP 153/78
--- NOTE | 2019-01-28 19:01 | NUR ---
Patient in room SHARON 356. I have received report from Jeri MANN and had the opportunity to ask questions and assume patient care.
[2019-01-28] MEDS: risperiDONE 2mg tablet PO SCH (20:33)
[2019-01-28] MEDS: HYDROcodone/acetaminophen 5mg/325mg tablet PO PRN (20:42)
[2019-01-29 00:56] VITALS: BP 128/60
--- NOTE | 2019-01-29 06:15 | NUR ---
Patient in room SHARON 356. I have received report from MACKENZIE Avitia and had the opportunity to ask questions and assume patient care.
[2019-01-29 06:24] LABS: MAGNESIUM 1.8 MG/DL (1.5-2.4); POTASSIUM 3.8 MMOL/L (3.5-5.1)
[2019-01-29 06:30] VITALS: BP 129/70
[2019-01-29 08:53] LABS: BASOPHILS # (AUTO) 0.1 X10'3 (0-0.2); BASOPHILS % (AUTO) 0.7 % (0-1); EOSINOPHILS # (AUTO) 0.1 X10'3 (0-0.9); EOSINOPHILS % (AUTO) 1.7 % (0-6); HEMATOCRIT 34.1 % (42.0-52.0); HEMOGLOBIN 11.5 g/dl (14.0-17.9); LYMPHOCYTES # (AUTO) 1.1 X10'3 (1.1-4.8); LYMPHOCYTES % (AUTO) 13.1 % (21-51); MEAN CORPUSCULAR HEMOGLOBIN 31.3 PG (27.0-31.0); MEAN CORPUSCULAR HGB CONC 33.8 g/dL (33.0-36.5); MEAN CORPUSCULAR VOLUME 92.5 FL (78-98); MEAN PLATELET VOLUME 9.4 FL (7.4-10.4); MONOCYTES # (AUTO) 1.1 X10'3 (0-0.9); MONOCYTES % (AUTO) 13.2 % (2-12); NEUTROPHILS # (AUTO) 5.8 X10'3 (1.8-7.7); NEUTROPHILS % (AUTO) 71.3 % (42-75); PLATELET COUNT 233 X10'3 (140-440); RED BLOOD COUNT 3.68 X10'6 (4.70-6.10); RED CELL DISTRIBUTION WIDTH 13.6 % (11.5-14.5); WHITE BLOOD COUNT 8.1 X10'3 (4.5-11.0)
[2019-01-29 08:56] LABS: ALANINE AMINOTRANSFERASE 31 U/L (12-78); ALBUMIN 2.5 G/DL (3.4-5.0); ALBUMIN/GLOBULIN RATIO 0.6 (1.1-1.5); ALKALINE PHOSPHATASE 62 IU/L (46-116); ANION GAP 11 (8-16); ASPARTATE AMINO TRANSFERASE 32 U/L (10-37); BILIRUBIN,TOTAL 0.3 MG/DL (0.1-1.0); BLOOD UREA NITROGEN 13 MG/DL (7-18); BUN/CREATININE RATIO 14.3 (5.4-32.0); CALCIUM 7.8 MG/DL (8.5-10.1); CHLORIDE 107 MMOL/L (99-107); CREATININE 0.91 MG/DL (0.60-1.10); GLUCOSE 97 MG/DL (70-104); SODIUM 139 MMOL/L (135-145); TOTAL CARBON DIOXIDE 21.4 MMOL/L (24-32); TOTAL PROTEIN 6.5 G/DL (6.4-8.2); eGFR 83 ML/MIN
[2019-01-29] MEDS: amLODIPine 2.5mg tablet PO SCH (09:03)
[2019-01-29] MEDS: OLANZAPINE 5 MG TABLET PO SCH ×3 (09:04→20:33)
[2019-01-29] MEDS: lisinopril 10 MG tablet PO SCH (09:04)
[2019-01-29] MEDS: PALIPERIDONE 3 MG TAB.ER.24 PO SCH (09:04)
[2019-01-29] MEDS: lactobacillus rhamnosus 10,000 MMU CELLS/CAPSULE PO SCH ×2 (09:04→20:33)
[2019-01-29] MEDS: levoFLOXACIN 750MG TABLET PO SCH (11:28)
[2019-01-29 11:30] VITALS: BP 128/63
--- NOTE | 2019-01-29 18:30 | NUR ---
Patient in room SHARON 356. I have received report from LAKE and had the opportunity to ask questions and assume patient care. ASSUMED CARE WITH RN STUDENT ANDRÉS Lopez
--- NOTE | 2019-01-29 19:30 | NUR ---
LINSEY SAUCEDA/LAURIE CHANGE Addendum: 01/30/19 at 0358 by Mary Leblanc RN Amended: Links added.
[2019-01-29 20:00] VITALS: BP 146/75
[2019-01-29] MEDS: risperiDONE 2mg tablet PO SCH (20:31)
[2019-01-29] MEDS: HYDROcodone/acetaminophen 5mg/325mg tablet PO PRN (20:32)
[2019-01-30] VITALS: BP 119/60
[2019-01-30 05:34] LABS: BASOPHILS % (AUTO) 0.5 % (0-1); EOSINOPHILS # (AUTO) 0.1 X10'3 (0-0.9); EOSINOPHILS % (AUTO) 1.3 % (0-6); HEMATOCRIT 35.1 % (42.0-52.0); LYMPHOCYTES # (AUTO) 1.1 X10'3 (1.1-4.8); LYMPHOCYTES % (AUTO) 13.5 % (21-51); MEAN CORPUSCULAR HEMOGLOBIN 31.3 PG (27.0-31.0); MEAN CORPUSCULAR HGB CONC 34.2 g/dL (33.0-36.5); MEAN CORPUSCULAR VOLUME 91.6 FL (78-98); MEAN PLATELET VOLUME 9.1 FL (7.4-10.4); MONOCYTES % (AUTO) 13.2 % (2-12); NEUTROPHILS # (AUTO) 5.6 X10'3 (1.8-7.7); NEUTROPHILS % (AUTO) 71.5 % (42-75); PLATELET COUNT 226 X10'3 (140-440); RED BLOOD COUNT 3.83 X10'6 (4.70-6.10); RED CELL DISTRIBUTION WIDTH 13.5 % (11.5-14.5); WHITE BLOOD COUNT 7.8 X10'3 (4.5-11.0)
[2019-01-30 05:48] LABS: ALANINE AMINOTRANSFERASE 33 U/L (12-78); ALBUMIN 2.5 G/DL (3.4-5.0); ALBUMIN/GLOBULIN RATIO 0.6 (1.1-1.5); ALKALINE PHOSPHATASE 67 IU/L (46-116); ANION GAP 8 (8-16); ASPARTATE AMINO TRANSFERASE 37 U/L (10-37); BILIRUBIN,TOTAL 0.3 MG/DL (0.1-1.0); BLOOD UREA NITROGEN 20 MG/DL (7-18); BUN/CREATININE RATIO 19.6 (5.4-32.0); CALCIUM 8.1 MG/DL (8.5-10.1); CHLORIDE 107 MMOL/L (99-107); CREATININE 1.02 MG/DL (0.60-1.10); GLUCOSE 115 MG/DL (70-104); POTASSIUM 4.2 MMOL/L (3.5-5.1); SODIUM 138 MMOL/L (135-145); TOTAL CARBON DIOXIDE 23.3 MMOL/L (24-32); TOTAL PROTEIN 6.8 G/DL (6.4-8.2); eGFR 72 ML/MIN
--- NOTE | 2019-01-30 06:25 | NUR ---
Patient in room SHARON 356. I have received report from MACKENZIE Hernandez and had the opportunity to ask questions and assume patient care.
--- NOTE | 2019-01-30 06:27 | NUR ---
Problems reprioritized. Patient report given, questions answered & plan of care reviewed with LAKE.
[2019-01-30 06:30] VITALS: BP 131/57
[2019-01-30] MEDS: PALIPERIDONE 3 MG TAB.ER.24 PO SCH (09:56)
[2019-01-30] MEDS: amLODIPine 2.5mg tablet PO SCH (09:56)
[2019-01-30] MEDS: levoFLOXACIN 750MG TABLET PO SCH (09:56)
[2019-01-30] MEDS: lactobacillus rhamnosus 10,000 MMU CELLS/CAPSULE PO SCH ×2 (09:56→20:09)
[2019-01-30] MEDS: lisinopril 10 MG tablet PO SCH (09:57)
[2019-01-30] MEDS: OLANZAPINE 5 MG TABLET PO SCH ×3 (09:57→20:09)
[2019-01-30 11:30] VITALS: BP 120/71
--- NOTE | 2019-01-30 18:25 | NUR ---
Problems reprioritized. Patient report given, questions answered & plan of care reviewed with MACKENZIE Cardoza.
--- NOTE | 2019-01-30 18:30 | NUR ---
Patient in room SHARON 356. I have received report from MACKENZIE Wilcox and had the opportunity to ask questions and assume patient care.
[2019-01-30 19:00] VITALS: BP 136/70
[2019-01-30] MEDS: HYDROcodone/acetaminophen 5mg/325mg tablet PO PRN (19:28)
[2019-01-30] MEDS: risperiDONE 2mg tablet PO SCH (20:09)
[2019-01-31 00:08] VITALS: BP 113/54
[2019-01-31 05:31] LABS: BASOPHILS % (AUTO) 0.3 % (0-1); EOSINOPHILS # (AUTO) 0.1 X10'3 (0-0.9); HEMATOCRIT 35.6 % (42.0-52.0); HEMOGLOBIN 12.2 g/dl (14.0-17.9); LYMPHOCYTES # (AUTO) 0.9 X10'3 (1.1-4.8); LYMPHOCYTES % (AUTO) 12.5 % (21-51); MEAN CORPUSCULAR HEMOGLOBIN 31.2 PG (27.0-31.0); MEAN CORPUSCULAR HGB CONC 34.2 g/dL (33.0-36.5); MEAN CORPUSCULAR VOLUME 91.4 FL (78-98); MEAN PLATELET VOLUME 8.6 FL (7.4-10.4); MONOCYTES % (AUTO) 12.9 % (2-12); NEUTROPHILS # (AUTO) 5.6 X10'3 (1.8-7.7); NEUTROPHILS % (AUTO) 73.3 % (42-75); PLATELET COUNT 235 X10'3 (140-440); RED CELL DISTRIBUTION WIDTH 13.5 % (11.5-14.5); WHITE BLOOD COUNT 7.6 X10'3 (4.5-11.0)
[2019-01-31 05:40] LABS: ALANINE AMINOTRANSFERASE 33 U/L (12-78); ALBUMIN 2.6 G/DL (3.4-5.0); ALBUMIN/GLOBULIN RATIO 0.6 (1.1-1.5); ALKALINE PHOSPHATASE 71 IU/L (46-116); ANION GAP 10 (8-16); ASPARTATE AMINO TRANSFERASE 36 U/L (10-37); BILIRUBIN,TOTAL 0.3 MG/DL (0.1-1.0); BLOOD UREA NITROGEN 19 MG/DL (7-18); BUN/CREATININE RATIO 17.9 (5.4-32.0); CALCIUM 8.1 MG/DL (8.5-10.1); CHLORIDE 105 MMOL/L (99-107); CREATININE 1.06 MG/DL (0.60-1.10); GLUCOSE 120 MG/DL (70-104); SODIUM 137 MMOL/L (135-145); TOTAL CARBON DIOXIDE 22.1 MMOL/L (24-32); TOTAL PROTEIN 6.9 G/DL (6.4-8.2); eGFR 69 ML/MIN
--- NOTE | 2019-01-31 06:02 | NUR ---
Problems reprioritized. Patient report given, questions answered & plan of care reviewed with MACKENZIE Moreira.
--- NOTE | 2019-01-31 06:48 | NUR ---
Patient in room SHARON 356. I have received report from Sony MANN and had the opportunity to ask questions and assume patient care.
[2019-01-31 07:52] VITALS: BP 117/58
[2019-01-31] MEDS: amLODIPine 2.5mg tablet PO SCH (07:56)
[2019-01-31] MEDS: lactobacillus rhamnosus 10,000 MMU CELLS/CAPSULE PO SCH (07:56)
[2019-01-31] MEDS: OLANZAPINE 5 MG TABLET PO SCH ×2 (07:56→12:57)
[2019-01-31] MEDS: PALIPERIDONE 3 MG TAB.ER.24 PO SCH (07:57)
[2019-01-31] MEDS: lisinopril 10 MG tablet PO SCH (07:57)
[2019-01-31] MEDS ORDERED: LACT1CAP26 PO (11:51)
[2019-01-31] MEDS ORDERED: LEVO750T46 PO (11:51)
[2019-01-31] MEDS: levoFLOXACIN 750MG TABLET PO SCH (11:57)
[2019-01-31 12:13] VITALS: BP 116/70
--- NOTE | 2019-01-31 13:26 | NUR ---
Patient dc'd with [facility] transport back to [facility] with all personal belongings. Patient was A&O and did not have any apparent s/s of distress and with no complaints.
--- NOTE | 2019-01-31 13:43 | NUR ---
Problems reprioritized. Patient report given, questions answered & plan of care reviewed with Yadira MANN at [place].
== END 2019-01-31 13:45 | DRG 853 ==
LOC: ER 21:24 → SUR 3N 01-23 02:46
PROVIDERS: ADMIT Internal Medicine; ATTEND Family Medicine
PROC: 8E0W4CZ Robotic Assisted Procedure of Trunk Region, Percutaneous Endoscopic Approach (ICD-10-PCS; 2019-01-24)
PROC: 0FB44ZZ Excision of Gallbladder, Percutaneous Endoscopic Approach (ICD-10-PCS; principal; 2019-01-24 16:48)
DX: A41.59 Other Gram-negative sepsis (principal); N17.0 Acute kidney failure with tubular necrosis; K80.00 Calculus of gallbladder with acute cholecystitis without obstruction; K66.0 Peritoneal adhesions (postprocedural) (postinfection); F17.200 Nicotine dependence, unspecified, uncomplicated; I10 Essential (primary) hypertension; K82.A1 Gangrene of gallbladder in cholecystitis; B95.2 Enterococcus as the cause of diseases classified elsewhere; F25.9 Schizoaffective disorder, unspecified; E86.0 Dehydration; M19.90 Unspecified osteoarthritis, unspecified site; Z79.899 Other long term (current) drug therapy
CPT/HCPCS: 36415; 71045; 74176; 76700; 80053; 81001; 83605; 83735; 84145; 85025; 85610; 85730; 87040; 87077; 87081; 87186; 88304; 93005; 96365; 96368; 99285; A4215; A4618; A7000; G0378; J0694; J0696; J1170; J2001; J2250; J2704; J2710; J3010; J3490; J7030; J7070; J7120